=== PATIENT | female | born 1945 | race Caucasian/White ===

== ENCOUNTER 2019-05-15 10:57 | Inpatient (IN) ==
[2019-05-15] MEDS ORDERED: ALBUT/IPRATROP 3MG/0.5MG NEB 3 ML VIAL NEB STA (11:11)
--- NOTE | 2019-05-15 11:14 | Emergency Department Note ---
Entered by Judd Chatterjee acting as a scribe for Bobby Dunn DO History of Present Illness General Chief complaint: Shortness of Breath/Dyspnea Stated complaint: CANT BREATHE Time Seen by Provider: 05/15/19 11:05 Source: patient Limitations: no limitations History of Present Illness Onset (ago): day(s) (couple days) Location: chest Pain Consistency: + other (worsening) Quality: + constant Associated symptoms: no chest pain, no cough and no fever/chills (fevers) The patient is a 74 year old female who presents to the Emergency Room with complaints of constant and worsening SOB starting a couple days ago. The patient states she has bronchiectasis. She states she woke up this morning with her oxygen saturation at 58. She states she had trouble breathing this morning. She states she moved to this area 2 months ago and saw pulmonary at [facility] last week. She states she is prescribed Tobramycin inhaler but the patient's daughter states the patient has not been taking it. The daughter states the patient was recently hospitalized in November because the patient's CO2 was high. The patient denies chest pain, fevers, and coughing. The patient states she used to smoke. 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 Home Medications Home Medications Medication Instructions Recorded Confirmed Type atenolol 25 mg PO QAM 05/15/19 05/15/19 History azathioprine 50 mg PO QAM 05/15/19 05/15/19 History clonazepam 0.5 mg PO BID 05/15/19 05/15/19 History esomeprazole magnesium [Nexium] 40 mg PO QAM 05/15/19 05/15/19 History ipratropium-albuterol 3 ml INHALATION QID 05/15/19 05/15/19 History levothyroxine [Synthroid] 112 mcg PO QAM 05/15/19 05/15/19 History metformin 0 mg PO PM 05/15/19 05/15/19 History prednisone 5 mg PO QAM 05/15/19 05/15/19 History sodium chloride 4 ml INHALATION BID 05/15/19 05/15/19 History tobramycin [Dionicio Podhaler] 28 mg INHALATION UD 05/15/19 05/15/19 History venlafaxine 37.5 mg PO PM 05/15/19 05/15/19 History venlafaxine 75 mg PO PM 05/15/19 05/15/19 History venlafaxine 75 mg PO QAM 05/15/19 05/15/19 History Allergies Allergy/AdvReac Type Severity Reaction Status Date / Time levofloxacin Allergy Unknown Unverified 05/15/19 12:47 Sulfa (Sulfonamide Allergy Unknown Unverified 05/15/19 12:47 Antibiotics) Past Med/Surg History Medical History Bronchiectasis Vasculitis Family History Other Family history non-contributory Social History Preferred Language: Macedonian Communication Ability: Effective Rn Clinical Trials Required: No Beliefs That Will Affect Care: Christian Christian Beliefs: Yazidism. Current Living Situation: Spouse Current Living Situation Comment: [facility]. Other Information That Helps Us Care for You: No Feels Safe at Home: Yes Safety Concerns: Feels Safe At This Time Smoking Status: Former smoker Do You Dip or Chew Tobacco: No ; Smoking End Date: 40+Years ago. ; Second Hand Exposure: No ; Tobacco Cessation Education Requested by Patient: No Hx Alcohol Use: No Hx Substance Use: No Review of Systems See HPI for pertinent positives & negatives. and A total of 10 systems reviewed and were otherwise negative Physical Exam Vital Signs Vital Signs - 24 hr 05/15/19 11:07 05/15/19 11:14 05/15/19 11:20 Temperature 36.6 C Temperature Source Oral Pulse Rate 78 81 Pulse Rate [Apical] 76 Pulse Rate from SpO2 Sensor 76 Respiratory Rate 17 24 Respiratory Effort / Characteristics Spontaneous Respiratory Depth Normal Respiratory Pattern Regular Blood Pressure 146/62 H 146/62 H Blood Pressure Mean 94 90 Pulse Oximetry 94 74 L 91 Oxygen Delivery Method Room Air High Flow Nasal Cannula Oxygen Flow Rate 25 Fraction of Inspired Oxygen 40 Sepsis Recent Fever Within 48 Hours No Sepsis New/Unexplained Change in Mental Status No Sepsis Action Taken by Nursing No Action Required Oxygen Flow Rate - Titration 11 Pulse Oximetry Post Tiitration 92 05/15/19 11:25 05/15/19 11:26 05/15/19 11:30 Temperature Temperature Source Pulse Rate 77 78 76 Pulse Rate [Apical] Pulse Rate from SpO2 Sensor 78 78 77 Respiratory Rate 32 H 30 H 25 H Respiratory Effort / Characteristics Respiratory Depth Respiratory Pattern Blood Pressure 124/61 122/69 Blood Pressure Mean 79 79 Pulse Oximetry 95 95 93 Oxygen Delivery Method Oxygen Flow Rate Fraction of Inspired Oxygen Sepsis Recent Fever Within 48 Hours Sepsis New/Unexplained Change in Mental Status Sepsis Action Taken by Nursing Oxygen Flow Rate - Titration Pulse Oximetry Post Tiitration 05/15/19 11:40 05/15/19 12:00 05/15/19 12:01 Temperature Temperature Source Pulse Rate 75 74 Pulse Rate [Apical] 76 Pulse Rate from SpO2 Sensor 77 74 Respiratory Rate 24 33 H 35 H Respiratory Effort / Characteristics Spontaneous Respiratory Depth Respiratory Pattern Blood Pressure 127/62 Blood Pressure Mean 83 Pulse Oximetry 91 95 95 Oxygen Delivery Method High Flow Nasal Cannula Nasal Cannula Oxygen Flow Rate 25 4 Fraction of Inspired Oxygen 40 Sepsis Recent Fever Within 48 Hours Sepsis New/Unexplained Change in Mental Status Sepsis Action Taken by Nursing Oxygen Flow Rate - Titration Pulse Oximetry Post Tiitration 05/15/19 12:30 05/15/19 12:31 05/15/19 13:00 Temperature Temperature Source Pulse Rate 78 80 75 Pulse Rate [Apical] Pulse Rate from SpO2 Sensor 77 79 75 Respiratory Rate 22 Respiratory Effort / Characteristics Respiratory Depth Respiratory Pattern Blood Pressure 113/64 124/62 Blood Pressure Mean 91 88 Pulse Oximetry 95 96 94 Oxygen Delivery Method Oxygen Flow Rate Fraction of Inspired Oxygen Sepsis Recent Fever Within 48 Hours Sepsis New/Unexplained Change in Mental Status Sepsis Action Taken by Nursing Oxygen Flow Rate - Titration Pulse Oximetry Post Tiitration 05/15/19 13:01 05/15/19 13:30 05/15/19 13:31 Temperature Temperature Source Pulse Rate 74 73 79 Pulse Rate [Apical] Pulse Rate from SpO2 Sensor 74 74 74 Respiratory Rate 24 17 17 Respiratory Effort / Characteristics Respiratory Depth Respiratory Pattern Blood Pressure 124/61 Blood Pressure Mean 85 Pulse Oximetry 94 97 94 Oxygen Delivery Method Nasal Cannula Nasal Cannula Oxygen Flow Rate 4 2 Fraction of Inspired Oxygen Sepsis Recent Fever Within 48 Hours Sepsis New/Unexplained Change in Mental Status Sepsis Action Taken by Nursing Oxygen Flow Rate - Titration Pulse Oximetry Post Tiitration 05/15/19 14:00 05/15/19 14:01 Temperature Temperature Source Pulse Rate 75 75 Pulse Rate [Apical] Pulse Rate from SpO2 Sensor 76 75 Respiratory Rate Respiratory Effort / Characteristics Respiratory Depth Respiratory Pattern Blood Pressure 128/60 Blood Pressure Mean 85 Pulse Oximetry Oxygen Delivery Method Oxygen Flow Rate Fraction of Inspired Oxygen Sepsis Recent Fever Within 48 Hours Sepsis New/Unexplained Change in Mental Status Sepsis Action Taken by Nursing Oxygen Flow Rate - Titration Pulse Oximetry Post Tiitration GENERAL: The patient is awake and alert. She is very anxious appearing. EYES: The conjunctivae are clear. The pupils are round and reactive. EARS, NOSE, MOUTH AND THROAT: The nose is without any evidence of any deformity. Mucous membranes are moist. Tongue is midline. NECK: The neck is nontender and supple. RESPIRATORY: Shallow respirations are noted. There are rales noted throughout. CARDIOVASCULAR: Regular rate and rhythm noted there no murmurs rubs or gallops normal S1 normal S2. GASTROINTESTINAL: The abdomen is soft. Abdomen is nontender. MUSCULOSKELETAL/EXTREMITIES: There is no evidence of gross deformity full range of motion is noted in the hips and shoulders. SKIN: Pedal edema was noted bilaterally. Petechiae are noted in both legs. NEUROLOGIC: Patient is awake alert and oriented x3. Course Course 1106: The patient was evaluated in room C9, and a complete history and physical examination were performed. 1231: I reevaluated the patient. She is doing better. 1252: I discussed the patient's case with Dr. Floyd - [facility] Hospitalist. She will evaluate the patient for further management. Administered Medications Discontinued Medications Albuterol (Duoneb) 3 ml NEB NOW STA Stop: 05/15/19 11:12 Last Admin: 05/15/19 11:35 Dose: 3 ml Documented by: [id number] Medical Decision Making Differential Diagnosis Differential diagnoses includes but is not limited to pneumonia, bronchitis, COPD/Asthma exacerbation, pneumothorax, pulmonary embolism, congestive heart failure, acute coronary syndrome Medical Records Attestation: I reviewed the patient's medical records. Home Medications Current Medication List: was personally reviewed by me Laboratory Data Attestation: I reviewed the patient's lab results. Result diagrams: 05/15/19 12:15 05/15/19 12:08 Lab Results 05/15/19 05/15/19 05/15/19 Range/Units 11:15 11:26 11:26 WBC Cancelled RBC Cancelled Hgb Cancelled Hct Cancelled MCV Cancelled MCH Cancelled MCHC Cancelled RDW Std Deviation Cancelled RDW Coeff of Taylor Cancelled Plt Count Cancelled MPV Cancelled Immature Gran % (Auto) Cancelled Neut % (Auto) Cancelled Lymph % (Auto) Cancelled [place] % (Auto) Cancelled Eos % (Auto) Cancelled Baso % (Auto) Cancelled Immature Gran # (Auto) Cancelled Neut # (Auto) Cancelled Lymph # (Auto) Cancelled [place] # (Auto) Cancelled Eos # (Auto) Cancelled Baso # (Auto) Cancelled Absolute Nucleated RBC Cancelled Nucleated RBC % (auto) Cancelled Neutrophils % (Manual) Cancelled Band Neutrophils % Cancelled Lymphocytes % (Manual) Cancelled Prolymphocyte % Cancelled Reactive Lymphs % (Man) Cancelled Monocytes % (Manual) Cancelled Eosinophils % (Manual) Cancelled Basophils % (Manual) Cancelled Metamyelocytes % (Man) Cancelled Myelocytes % (Man) Cancelled Promyelocytes % (Man) Cancelled Blast Cells % (Manual) Cancelled Plasma Cell % (Manual) Cancelled Other Cells % Cancelled Nucleated RBC % Cancelled Neutrophils # (Manual) Cancelled Band Neutrophils # Cancelled Total Absolute Neuts Cancelled Lymphocytes # (Manual) Cancelled Prolymphocyte # Cancelled Reactive Lymphs # Cancelled Total Abs Lymphocytes Cancelled Monocytes # (Manual) Cancelled Eosinophils # (Manual) Cancelled Basophils # (Manual) Cancelled Metamyelocytes # (Man) Cancelled Myelocytes # (Manual) Cancelled Promyelocytes # (Man) Cancelled Blast Cells # (Man) Cancelled Plasma Cell # (Manual) Cancelled Other Cells # Cancelled Nucleated RBCs # (Man) Cancelled Hypersegmented Neuts Cancelled Hyposegmented Neuts Cancelled Hypogranular Neuts Cancelled Large Granular Lymphs Cancelled # Lrg Granular Lymphs Cancelled Hairy Cells Cancelled Smudge Cells Cancelled Toxic Granulation Cancelled Toxic Vacuolation Cancelled Dohle Bodies Cancelled Christ Rods Cancelled Platelet Estimate Cancelled Hypogranular Platelets Cancelled Clumped Platelets Cancelled Giant Platelets Cancelled Platelet Satelliting Cancelled RBC Morphology Cancelled Polychromasia Cancelled Hypochromasia Cancelled Poikilocytosis Cancelled Basophilic Stippling Cancelled Anisocytosis Cancelled Microcytosis Cancelled Macrocytosis Cancelled Spherocytes Cancelled Pappenheimer Bodies Cancelled Sickle Cells Cancelled Target Cells Cancelled Tear Drop Cells Cancelled Ovalocytes Cancelled Stomatocytes Cancelled Cornell-El Negro Bodies Cancelled Echinocytes Cancelled Acanthocytes (Spur) Cancelled Rouleaux Cancelled RBC Agglutinates Cancelled Schistocytes Cancelled RBC Morph Comment Cancelled Sezary Cell Cancelled PT Cancelled INR Cancelled APTT Cancelled PTT Ratio Cancelled VBG pH (7.36-7.41) VBG pCO2 (38-50) mmHg VBG pO2 mmHg VBG HCO3 mmol/L VBG O2 Saturation % VBG Base Excess mEq/L Barometric Pressure mm/Hg Sodium (136-145) mmol/L Potassium (3.5-5.1) mmol/L Chloride (98-107) mmol/L Carbon Dioxide (21-32) mmol/L Anion Gap (3-11) BUN (7-18) mg/dl Creatinine (0.6-1.2) mg/dl Est Cr Clr Drug Dosing ml/min Est GFR ( Amer) Est GFR (Non-Af Amer) BUN/Creatinine Ratio (10-20) Glucose (70-99) mg/dl Calcium (8.5-10.1) mg/dl Magnesium (1.8-2.4) mg/dl Total Bilirubin (0.2-1) mg/dl AST (15-37) U/L ALT (12-78) U/L Alkaline Phosphatase (45-117) U/L Troponin I (0-0.045) ng/ml NT-Pro-B Natriuret Pep (0-1800) pg/ml Total Protein (6.4-8.2) gm/dl Albumin (3.4-5.0) gm/dl Globulin (2.5-4.0) gm/dl Albumin/Globulin Ratio (0.9-2) Procalcitonin (0-0.5) ng/ml Influenza Type A (PCR) Neg for Influ A (Neg) Influenza Type B (PCR) Neg for Influ B (Neg) 05/15/19 05/15/19 05/15/19 Range/Units 11:26 11:26 12:08 WBC RBC Hgb Hct MCV MCH MCHC RDW Std Deviation RDW Coeff of Taylor Plt Count MPV Immature Gran % (Auto) Neut % (Auto) Lymph % (Auto) [place] % (Auto) Eos % (Auto) Baso % (Auto) Immature Gran # (Auto) Neut # (Auto) Lymph # (Auto) [place] # (Auto) Eos # (Auto) Baso # (Auto) Absolute Nucleated RBC Nucleated RBC % (auto) Neutrophils % (Manual) Band Neutrophils % Lymphocytes % (Manual) Prolymphocyte % Reactive Lymphs % (Man) Monocytes % (Manual) Eosinophils % (Manual) Basophils % (Manual) Metamyelocytes % (Man) Myelocytes % (Man) Promyelocytes % (Man) Blast Cells % (Manual) Plasma Cell % (Manual) Other Cells % Nucleated RBC % Neutrophils # (Manual) Band Neutrophils # Total Absolute Neuts Lymphocytes # (Manual) Prolymphocyte # Reactive Lymphs # Total Abs Lymphocytes Monocytes # (Manual) Eosinophils # (Manual) Basophils # (Manual) Metamyelocytes # (Man) Myelocytes # (Manual) Promyelocytes # (Man) Blast Cells # (Man) Plasma Cell # (Manual) Other Cells # Nucleated RBCs # (Man) Hypersegmented Neuts Hyposegmented Neuts Hypogranular Neuts Large Granular Lymphs # Lrg Granular Lymphs Hairy Cells Smudge Cells Toxic Granulation Toxic Vacuolation Dohle Bodies Christ Rods Platelet Estimate Hypogranular Platelets Clumped Platelets Giant Platelets Platelet Satelliting RBC Morphology Polychromasia Hypochromasia Poikilocytosis Basophilic Stippling Anisocytosis Microcytosis Macrocytosis Spherocytes Pappenheimer Bodies Sickle Cells Target Cells Tear Drop Cells Ovalocytes Stomatocytes Cornell-El Negro Bodies Echinocytes Acanthocytes (Spur) Rouleaux RBC Agglutinates Schistocytes RBC Morph Comment Sezary Cell PT INR APTT PTT Ratio VBG pH 7.22 L (7.36-7.41) VBG pCO2 103 H (38-50) mmHg VBG pO2 59 mmHg VBG HCO3 41 mmol/L VBG O2 Saturation 87.0 % VBG Base Excess 9.8 mEq/L Barometric Pressure 737.7 mm/Hg Sodium 134 L (136-145) mmol/L Potassium 4.9 (3.5-5.1) mmol/L Chloride 93 L (98-107) mmol/L Carbon Dioxide 40 H (21-32) mmol/L Anion Gap 2.0 L (3-11) BUN 15 (7-18) mg/dl Creatinine 0.64 (0.6-1.2) mg/dl Est Cr Clr Drug Dosing 64.6 ml/min Est GFR ( Amer) 100.5 Est GFR (Non-Af Amer) 86.7 BUN/Creatinine Ratio 23.8 H (10-20) Glucose 170 H (70-99) mg/dl Calcium 8.7 (8.5-10.1) mg/dl Magnesium 2.3 (1.8-2.4) mg/dl Total Bilirubin 0.3 (0.2-1) mg/dl AST 6 L (15-37) U/L ALT 9 L (12-78) U/L Alkaline Phosphatase 98 (45-117) U/L Troponin I < 0.015 (0-0.045) ng/ml NT-Pro-B Natriuret Pep 1493 (0-1800) pg/ml Total Protein 8.4 H (6.4-8.2) gm/dl Albumin 3.1 L (3.4-5.0) gm/dl Globulin 5.3 H (2.5-4.0) gm/dl Albumin/Globulin Ratio 0.6 L (0.9-2) Procalcitonin (0-0.5) ng/ml Influenza Type A (PCR) (Neg) Influenza Type B (PCR) (Neg) 05/15/19 05/15/19 05/15/19 Range/Units 12:15 12:15 12:15 WBC 10.32 RBC 3.35 L Hgb 11.2 L Hct 37.4 MCV 111.6 H MCH 33.4 MCHC 29.9 L RDW Std Deviation RDW Coeff of Taylor Plt Count 250 MPV Immature Gran % (Auto) 0.2 Neut % (Auto) 79.4 Lymph % (Auto) 14.2 [place] % (Auto) 5.0 Eos % (Auto) 0.8 Baso % (Auto) 0.4 Immature Gran # (Auto) 0.02 Neut # (Auto) 8.19 H Lymph # (Auto) 1.47 [place] # (Auto) 0.52 Eos # (Auto) 0.08 Baso # (Auto) 0.04 Absolute Nucleated RBC Nucleated RBC % (auto) Neutrophils % (Manual) Band Neutrophils % Lymphocytes % (Manual) Prolymphocyte % Reactive Lymphs % (Man) Monocytes % (Manual) Eosinophils % (Manual) Basophils % (Manual) Metamyelocytes % (Man) Myelocytes % (Man) Promyelocytes % (Man) Blast Cells % (Manual) Plasma Cell % (Manual) Other Cells % Nucleated RBC % Neutrophils # (Manual) Band Neutrophils # Total Absolute Neuts Lymphocytes # (Manual) Prolymphocyte # Reactive Lymphs # Total Abs Lymphocytes Monocytes # (Manual) Eosinophils # (Manual) Basophils # (Manual) Metamyelocytes # (Man) Myelocytes # (Manual) Promyelocytes # (Man) Blast Cells # (Man) Plasma Cell # (Manual) Other Cells # Nucleated RBCs # (Man) Hypersegmented Neuts Hyposegmented Neuts Hypogranular Neuts Large Granular Lymphs # Lrg Granular Lymphs Hairy Cells Smudge Cells Toxic Granulation Toxic Vacuolation Dohle Bodies Christ Rods Platelet Estimate Hypogranular Platelets Clumped Platelets Giant Platelets Platelet Satelliting RBC Morphology Polychromasia Hypochromasia Poikilocytosis Basophilic Stippling Anisocytosis Microcytosis Macrocytosis Present Spherocytes Pappenheimer Bodies Sickle Cells Target Cells Tear Drop Cells Ovalocytes Stomatocytes 1+ Cornell-El Negro Bodies Echinocytes Acanthocytes (Spur) Rouleaux RBC Agglutinates Schistocytes RBC Morph Comment Sezary Cell PT 10.3 INR 1.0 APTT 23.7 PTT Ratio 0.9 VBG pH (7.36-7.41) VBG pCO2 (38-50) mmHg VBG pO2 mmHg VBG HCO3 mmol/L VBG O2 Saturation % VBG Base Excess mEq/L Barometric Pressure mm/Hg Sodium (136-145) mmol/L Potassium (3.5-5.1) mmol/L Chloride (98-107) mmol/L Carbon Dioxide (21-32) mmol/L Anion Gap (3-11) BUN (7-18) mg/dl Creatinine (0.6-1.2) mg/dl Est Cr Clr Drug Dosing ml/min Est GFR ( Amer) Est GFR (Non-Af Amer) BUN/Creatinine Ratio (10-20) Glucose (70-99) mg/dl Calcium (8.5-10.1) mg/dl Magnesium (1.8-2.4) mg/dl Total Bilirubin (0.2-1) mg/dl AST (15-37) U/L ALT (12-78) U/L Alkaline Phosphatase (45-117) U/L Troponin I (0-0.045) ng/ml NT-Pro-B Natriuret Pep (0-1800) pg/ml Total Protein (6.4-8.2) gm/dl Albumin (3.4-5.0) gm/dl Globulin (2.5-4.0) gm/dl Albumin/Globulin Ratio (0.9-2) Procalcitonin < 0.05 (0-0.5) ng/ml Influenza Type A (PCR) (Neg) Influenza Type B (PCR) (Neg) Imaging Data Radiologist's Impression: Radiology results as stated below per my review and the radiologist's interpretation: XR chest 1V portable CLINICAL HISTORY: 74 years-old Female presenting with Dyspnea. TECHNIQUE: Portable upright AP view of the chest was obtained. COMPARISON: None. FINDINGS: Atherosclerosis of the aortic arch. Cardiac silhouette borderline enlarged. Extensive heterogeneity lung parenchyma with reticular opacities diffusely though most dense in the right apex and left midlung as well as at the left lung base. Trace bilateral pleural effusions or blunting of the costophrenic angles related to hyperinflation. No pneumothorax. Osteopenia may be present. Upper abdomen normal. IMPRESSION: 1. Severe chronic lung disease. Added density at the right apex, left mid lung, left lung base makes a superimposed infiltrate/pneumonia difficult to exclude. Consider chest CT for further characterization. ACT 112: Negative or not required by law. Electronically signed by: Patric Drew M.D. 05/15/2019 11:44 AM ECG Data Attestation: I personally reviewed and interpreted this ECG as follows: Indication: + SOB/dyspnea Rate (beats per minute): [address] segments: no ST depression and no ST elevation ECG Findings: no PACs and no PVCs Comparison ECG Date: no prior available Blood Pressure Blood Pressure Findings: Elevated blood pressure Blood Pressure Disposition: further management by hospitalist [facility] Narrative The patient is a 74-year-old female who presented to the emergency department for shortness of breath. The patient recently moved to our area from [place] but has a history of bronchiectasis as well as Mycobacterium avium complex infection. She is also had a history of Pseudomonas infections. She does have coughing which is productive but no worse than usual. Her family brought her to the emergency department today at the request of her [facility] pulmonary group because of difficulty breathing and hypoxia. The patient has a home pulse ox which was reading very low. She was found to be in significant respiratory acidosis. The patient was treated with bronchodilator therapy and Vapotherm. She was significantly improved on reevaluation. I discussed the patient's laboratory and radiographic studies with her. I also discussed this case with the on-call [facility] hospitalist. They have agreed to evaluate the patient in the emergency department for further management and disposition. It is possible the patient may need further treatment for her Mycobacterium infection however at this time I will defer any new antibiotic treatment to the admitting team. Impression & Plan Bronchiectasis, Hypoxia, Respiratory acidosis Discharge Plan Visit Data *Final* Discharge Date/Time: 05/15/19 15:10 Chief Complaint: Shortness of Breath/Dyspnea Stated Complaint: CANT BREATHE ED Provider: Bobby Dunn Discharge Problem: Bronchiectasis, Hypoxia, Respiratory acidosis Patient Disposition: Admitted As Inpatient Discharge Instructions Interventions: ED Discharge Assessment Last Done: 05/15/19 15:10 Discharge Problem: Bronchiectasis Qualifiers: Bronchiectasis type: uncomplicated Qualified Code(s): J47.9 - Bronchiectasis, uncomplicated The scribe's documentation has been prepared under my direction and personally reviewed by me in its entirety. I confirm that the note above accurately reflects all work, treatment, procedures, and medical decision making performed by me.
[2019-05-15 11:45] LABS: Base Excess VBG 9.8 mEq/L; pH VBG 7.22 (7.36-7.41)
--- NOTE | 2019-05-15 11:46 | XRay Report ---
XR chest 1V portable CLINICAL HISTORY: 74 years-old Female presenting with Dyspnea. TECHNIQUE: Portable upright AP view of the chest was obtained. COMPARISON: None. FINDINGS: Atherosclerosis of the aortic arch. Cardiac silhouette borderline enlarged. Extensive heterogeneity l yves parenchyma with reticular opacities diffusely though most dense in the right apex and left midlun g as well as at the left lung base. Trace bilateral pleural effusions or blunting of the costophrenic angles related to hyperinflation. No pneumothorax. Osteopenia may be present. Upper abdomen normal. IMPRESSION: 1. Severe chronic lung disease. Added density at the right apex, left mid lung, left lung base makes a superimposed infiltrate/pneumonia difficult to exclude. Consider chest CT for further characteriza tion. ACT 112: Negative or not required by law. Electronically signed by: Patric Drew M.D. 05/15/2019 11:44 AM
[2019-05-15 11:56] LABS: Influenza A virus by PCR Neg for Influ A (Neg); Influenza B virus by PCR Neg for Influ B (Neg)
[2019-05-15 12:00] LABS: Alanine Aminotransferase 9 U/L (12-78); Albumin Level 3.1 gm/dl (3.4-5.0); BUN Creatinine Ratio 23.8 (10-20); Blood Urea Nitrogen 15 mg/dl (7-18); Calcium 8.7 mg/dl (8.5-10.1); Carbon Dioxide 40 mmol/L (21-32); Chloride 93 mmol/L (98-107); Creatinine Clr Calc Pharmacy 64.6 ml/min; Est GFR (African American) 100.5; Est GFR (Non-African American) 86.7; Glucose 170 mg/dl (70-99); Sodium 134 mmol/L (136-145)
[2019-05-15 12:01] LABS: Albumin Globulin Ratio 0.6 (0.9-2); Bilirubin,Total 0.3 mg/dl (0.2-1); Globulin 5.3 gm/dl (2.5-4.0); NT Pro B Type Natriuretic Pept 1493 pg/ml (0-1800); Total Protein 8.4 gm/dl (6.4-8.2); Troponin I < 0.015 ng/ml (0-0.045)
[2019-05-15 12:02] LABS: Alkaline Phosphatase 98 U/L (45-117)
[2019-05-15 12:33] LABS: Partial Thromboplastin Ratio 0.9; Partial Thromboplastin Time 23.7 Seconds (21.0-31.0); Prothrombin Time 10.3 Seconds (9.0-12.0)
[2019-05-15 12:34] LABS: Potassium 4.9 mmol/L (3.5-5.1)
[2019-05-15 12:39] LABS: Magnesium 2.3 mg/dl (1.8-2.4)
[2019-05-15 12:44] LABS: Hematocrit (blood only) 37.4 % (37-47); Hemoglobin 11.2 g/dL (12.0-16.0); Mean Corpuscular Hemoglobin 33.4 pg (25-34); Mean Corpuscular Hgb Conc 29.9 g/dL (32-36); Mean Corpuscular Volume 111.6 fL (80-100); Platelet Count 250 K/uL (130-400); Red Blood Count 3.35 M/uL (4.2-5.4); White Blood Count 10.32 K/uL (4.8-10.8)
[2019-05-15 13:00] LABS: Basophils # (auto) 0.04 K/uL (0-0.2); Basophils % (auto) 0.4 %; Eosinophils # (auto) 0.08 K/uL (0-0.5); Eosinophils % (auto) 0.8 %; Immature Granulocytes # (auto) 0.02 K/uL (0.00-0.02); Immature Granulocytes % (auto) 0.2 %; Lymphocytes # (auto) 1.47 K/uL (1.2-3.4); Lymphocytes % (auto) 14.2 %; Macrocytosis Present; Monocytes # (auto) 0.52 K/uL (0.11-0.59); Neutrophils # (auto) 8.19 K/uL (1.4-6.5); Neutrophils % (auto) 79.4 %; Stomatocytes 1+
--- NOTE | 2019-05-15 14:40 | History & Physical Report ---
Date of Service May 15, 2019 Assessment & Plan (1) Acute and chronic respiratory failure: Admit to PCU on telemetry. Vital signs every 4 hours. DuoNebs every 4 hours for shortness of breath and as needed per RT. Continue supplemental oxygen and BiPAP as needed Started piperacillin tazobactam CPAP BiPAP at bedtime Flutter valve 4 times daily Patient is not home on tobramycin 28 mg inhalation as directed. We will increase dose to 80 mg twice daily for acute exacerbation. Started multivitamins. Sputum cultures, blood cultures urine cultures pending. Lactic acid and procalcitonin pending. Hold Azathioprine 50 mg p.o. every morning for telangiectasis Started Solu-Medrol 40 mg IV twice daily and taper down. Consult pulmonary Pending vitamin D level DVT prophylaxis SCDs and teds Patient is a full code Present on Admission?: Yes (2) Depression: Stable, continue home medicine venlafaxine 75 mg p.o. every afternoon, 35.5 mg p.o. every afternoon, and 75 mg p.o. every morning. Continue clonazepam 0.5 mg p.o. twice daily. Present on Admission?: Yes (3) Anxiety: As the above Present on Admission?: Yes (4) Bronchiectasis: As discussed above Present on Admission?: Yes (5) Diabetes mellitus type 2 in nonobese: A1c pending. Accu-Cheks before meals and at bedtime. Sliding scale insulin. Glycemic control per pharmacy Present on Admission?: Yes History of Present Illness Chief Complaint: Shortness of breath Primary Care Provider: Patric Nath MD The patient is a 74 years old female with past medical history of chronic respiratory failure on oxygen, anxiety and depression, diabetes mellitus type 2, GERD, vasculitis, bronchiectasis, who was brought to the emergency room today with a complaint of worsening shortness of breath since yesterday. Patient and her moved from [place] 6 weeks ago to join her daughter in [place]. 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 Patient reports that she uses oxygen 24/7 approximately 2 to 3 L and she has sedentary life because any movement around increases her oxygen demand and makes her feel sick. This issue has been ongoing for more than a year. Patient reports that her dyspnea is getting worse and that is why she presented to the hospital. Patient denies fever, chills, chest pain, abdominal pain, frequency, urgency, syncope or near syncope, hemoptysis. Patient is good historian. She stated that most likely she will be DNR/DNI but she has to speak to her children. She reports that her cough is productive. Sputum is yellowish-green. EKG normal sinus rhythm with LVH. Labs are reviewed and shows sodium of 134, potassium 4.9, chloride 93, carbon dioxide 40, anion gap 2, BUN 15, creatinine 0.64, GFR 86.7, calcium 8.7, magnesium 2.3, AST 6, ALT 9, alkaline phosphatase 98, troponin 0.015, BNP 1493, total protein 8.4, albumin 3.1, globulin 5.3, procalcitonin pending. Influenza A&B negative. WBCs 10.32, RBCs 3.35, he moglobin 11.2, hematocrit 37.4, platelets 250, absolute neutrophil 8.19 left shift. Chest x-ray significant for severe chronic lung disease there is a density in the right upper ex, left mid lung, left lung base makes a superimposed infiltrate/pneumonia difficult to exclude. The decision was made to admit patient to PCU on telemetry for possible pneumonia, acute on chronic respiratory failure and bronchiectasis. Allergies Allergy/AdvReac Type Severity Reaction Status Date / Time levofloxacin Allergy Unknown Unverified 05/15/19 12:47 Sulfa (Sulfonamide Allergy Unknown Unverified 05/15/19 12:47 Antibiotics) Home Medications Home Medications Medication Instructions Recorded Confirmed Type atenolol 25 mg PO QAM 05/15/19 05/15/19 History azathioprine 50 mg PO QAM 05/15/19 05/15/19 History clonazepam 0.5 mg PO BID 05/15/19 05/15/19 History esomeprazole magnesium [Nexium] 40 mg PO QAM 05/15/19 05/15/19 History ipratropium-albuterol 3 ml INHALATION QID 05/15/19 05/15/19 History levothyroxine [Synthroid] 112 mcg PO QAM 05/15/19 05/15/19 History metformin 0 mg PO PM 05/15/19 05/15/19 History prednisone 5 mg PO QAM 05/15/19 05/15/19 History sodium chloride 4 ml INHALATION BID 05/15/19 05/15/19 History tobramycin [Dionicio Podhaler] 28 mg INHALATION UD 05/15/19 05/15/19 History venlafaxine 37.5 mg PO PM 05/15/19 05/15/19 History venlafaxine 75 mg PO PM 05/15/19 05/15/19 History venlafaxine 75 mg PO QAM 05/15/19 05/15/19 History Past Med/Surg History Medical History Bronchiectasis Vasculitis Family History Other Family history non-contributory Social History Preferred Language: Ivorian Communication Ability: Effective Blister Rust Eradicator Required: No Beliefs That Will Affect Care: Jain Jain Beliefs: Hindu. Current Living Situation: Spouse Current Living Situation Comment: [place]. Other Information That Helps Us Care for You: No Feels Safe at Home: Yes Safety Concerns: Feels Safe At This Time Smoking Status: Former smoker Do You Dip or Chew Tobacco: No ; Smoking End Date: 40+Years ago. ; Second Hand Exposure: No ; Tobacco Cessation Education Requested by Patient: No Hx Alcohol Use: No Hx Substance Use: No Review of Systems Review of Systems: All systems reviewed & are unremarkable except as noted in HPI & below Physical Exam Constitutional: WD/WN, vitals as above well developed, + ill appearing, + thin and + cachectic Eyes: PERRL, conjunctivae normal, anicteric sclerae ENMT: external ear and nose normal, oropharynx normal Neck: trachea midline, no thyromegaly Respiratory: + respiratory distress, + labored breathing, + uses accessory muscles, + hyperresonance to percussion, able to speak in complete sentences and + prolonged expiratory phase Auscultation: + crackles, + rales, + rhonchi, + wheezes and + pleural rub present Cardiovascular: RRR, no murmur, no edema Gastrointestinal (Abdomen): normal bowel sounds, soft, nontender, no hepatosplenomegaly Musculoskeletal: no cyanosis or clubbing, extremities motor strength 5/5 Skin: + purpura Neurologic: patellar DTR's 2+ bilat, sensation intact Psychiatric: A+Ox3, euthymic affect Lymphatic: no cervical or axillary lymphadenopathy Results & Data Vital Signs (Past 12 Hours) Vital Signs Temp Pulse Pulse Resp BP Pulse Ox 05/15/19 13:31 79 17 94 05/15/19 13:30 73 17 124/61 97 05/15/19 13:01 74 24 94 05/15/19 13:00 75 124/62 94 05/15/19 12:31 80 22 96 05/15/19 12:30 78 113/64 95 05/15/19 12:01 74 35 H 95 05/15/19 12:00 75 33 H 127/62 95 05/15/19 11:40 76 24 91 05/15/19 11:30 76 25 H 122/69 93 05/15/19 11:26 78 30 H 124/61 95 05/15/19 11:25 77 32 H 95 05/15/19 11:20 36.6 C 81 76 24 146/62 H 91 05/15/19 11:14 74 L 05/15/19 11:07 78 17 146/62 H 94 Code Status & VTE Plan Code Status Partial code with DNI. Patient still wants to be resuscitated with chest compressions and medication. VTE Prophylaxis Plan VTE Prophylaxis will be ordered: Yes PG Care Time/CCT Total # of Minutes Spent Total Time Spent with Patient: Total time spent is greater than 50% in coordination of care (as documented) at patient's floor/unit and/or counseling patient: Coding Level of Care Code 89952 Initial Inpt Care Lvl 3 Diagnoses Acute and chronic respiratory failure J96.20 Depression F32.9 Anxiety F41.9 Bronchiectasis J47.9 Bronchiectasis type: uncomplicated Diabetes mellitus type 2 in nonobese E11.9 (1) Bronchiectasis Bronchiectasis type: uncomplicated Qualified Code(s): J47.9 - Bronchiectasis, uncomplicated
[2019-05-15] MEDS ORDERED: ONDANSETRON INJ 2 MG/ML 2 ML VIAL IV PRN (15:49)
[2019-05-15] MEDS ORDERED: GLUCOSE 10 TABS/TUBE PO PRN (15:49)
[2019-05-15] MEDS ORDERED: MAGNESIUM HYDROXIDE SUSP 30 ML UDC PO PRN (15:49)
[2019-05-15] MEDS ORDERED: ACETAMINOPHEN 325 MG TAB PO PRN (15:49)
[2019-05-15] MEDS ORDERED: GLUCAGON FOR INJ 1 MG VIAL SQ PRN (15:49)
[2019-05-15] MEDS ORDERED: POLYETHYLENE (MIRALAX) 17 GM PACK PO PRN (15:49)
[2019-05-15] MEDS ORDERED: DEXTROSE 50% 50 ML SYRINGE IV PRN (15:49)
[2019-05-15] MEDS ORDERED: ALUMINUM/MAGNESIUM SUSP 30 ML UDC PO PRN (15:49)
[2019-05-15] MEDS ORDERED: CARBOHYDRATES FOR HYPOGLYCEMIA PO PRN (15:49)
[2019-05-15] MEDS ORDERED: GLUCOSE 40% GEL 15 GM TUBE PO PRN (15:49)
[2019-05-15] MEDS ORDERED: PHARMACY GLYCEMIC MGMT CONSULT PRN (16:28)
[2019-05-15] MEDS ORDERED: PIPERACILL/TAZOBAC CONSULT ACTIVE PRN (16:52)
[2019-05-15] MEDS ORDERED: methylPREDNISolone 40 MG in SYRINGE 0 ML IV SCH (17:00)
--- NOTE | 2019-05-15 17:05 | Pulmonary Consultation ---
Date of Consultation May 15, 2019 Assessment & Plan (1) Bronchiectasis: Impression: 74-year-old female with history of vasculitis reportedly ANCA positive with bronchiectasis of unclear etiology. She presents with an exacerbation and is found to be significantly hypercarbic on blood gas analysis. This is likely contributing to her hypoxemia as well. Recommendations: 1. Patient's database is incomplete. We will need to get records from [place] as well as [facility] as well as from her prior event producer. Reportedly the patient states that these records were provided to her primary care provider. We will be unable to get records over the weekend and this will need to be reassessed on Saturday when caseworkers are available. The evaluation at [facility] would also be beneficial. 2. The patient appears to be suffering from an acute exacerbation. Will place her on IV Zosyn and discontinue the inhaled tobramycin. Repeat sputum culture and Gram stain will be obtained as well as sputum AFB cultures. 3. Aggressive pulmonary toilet will be initiated with hypertonic saline as well as a flutter valve. She may require percussive vest therapy. 4. We will pursue noninvasive nocturnal positive pressure ventilation for her markedly elevated PCO2 and abnormal blood gas. We did discuss end-of-life issues as the patient has advanced/end-stage lung disease. I am not sure that CPR or mechanical ventilation would be beneficial in regards of this patient's quality of life. She is taking it under advisement and will discuss with her family. 5. The patient requires physical therapy and Occupational Therapy consultations to determine optimal outpatient living situation. 6. High resolution CT scan of the chest to better evaluate the patient's pulmonary parenchyma. 7. The patient needs to establish with rheumatology. She was advised this is not available as an inpatient. I am not sure if her azathioprine should be continued as I am unclear if this is being provided for lung issue or merely cutaneous vasculitis. In the setting of acute infection, I would favor holding it for now. Her creatinine is normal. We will request urinalysis to look for p rotein or hematuria. We will continue to follow with you. Feel free to contact us if we can be of additional assistance. Bronchiectasis type: uncomplicated Qualified Code(s): J47.9 - Bronchiectasis, uncomplicated (2) Hypoxia: (3) Hypercapnic respiratory failure: (4) Abnormal CT scan of lung: History of Present Illness Attending Physician: Champ Floyd MD History of Present Illness Asked by the hospitalist service to assist with management of this patient with bronchiectasis admitted with shortness of breath. History is obtained from discussion with the patient and her daughter at bedside as well as the review of the electronic medical record. Patient is a 74-year-old female who recently moved to [place] from [place]. 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 She also had extensive evaluations conducted at [facility] in [place] as well as in [place]. Her pulmonary history is significant for bronchiectasis of unclear etiology. She apparently recently was diagnosed with ANCA positive vasculitis based on what sounds like a skin biopsy. She is unclear as to whether or not her lungs were involved with the vasculitis. She has been under the care of a gallery assistant and has been on azathioprine for several months. The patient has been using pulmonary toilet at home in the form of a hypertonic saline and flutter valve. She is also on bronchodilators. The patient and her daughter relate that she was admitted in November with hypercapnic respiratory failure. She was intubated at that time. Bronchoscopy may have been accomplished. She relates a history of Pseudomonas infection or colonization but does not know sensitivities. She has been on tobramycin inhaled as a preventative therapy. The patient is on oxygen chronically. She uses between 2 and 3 L on a regular basis. She states her appetite and weight have been relatively stable. She has a variety of other conditions including depression and anxiety for which she is trying to establish with a mental health provider. She does not report night sweats. She is unclear if she is ever been screened for nontuberculous mycobacterial disease. Allergies Allergy/AdvReac Type Severity Reaction Status Date / Time levofloxacin Allergy Unknown Unverified 05/15/19 12:47 Sulfa (Sulfonamide Allergy Unknown Unverified 05/15/19 12:47 Antibiotics) Home Medications Home Medications Medication Instructions Recorded Confirmed Type atenolol 25 mg PO QAM 05/15/19 05/15/19 History azathioprine 50 mg PO QAM 05/15/19 05/15/19 History clonazepam 0.5 mg PO BID 05/15/19 05/15/19 History esomeprazole magnesium [Nexium] 40 mg PO QAM 05/15/19 05/15/19 History ipratropium-albuterol 3 ml INHALATION QID 05/15/19 05/15/19 History levothyroxine [Synthroid] 112 mcg PO QAM 05/15/19 05/15/19 History metformin 0 mg PO PM 05/15/19 05/15/19 History prednisone 5 mg PO QAM 05/15/19 05/15/19 History sodium chloride 4 ml INHALATION BID 05/15/19 05/15/19 History tobramycin [Dionicio Podhaler] 28 mg INHALATION UD 05/15/19 05/15/19 History venlafaxine 37.5 mg PO PM 05/15/19 05/15/19 History venlafaxine 75 mg PO PM 05/15/19 05/15/19 History venlafaxine 75 mg PO QAM 05/15/19 05/15/19 History Patient History Medical History Bronchiectasis Vasculitis Family History Other Family history non-contributory Social History Preferred Language: Amharic Communication Ability: Effective Barrel Inspector Required: No Beliefs That Will Affect Care: Baptism Baptism Beliefs: Cheondoism. Current Living Situation: Spouse Current Living Situation Comment: [place]. Other Information That Helps Us Care for You: No Feels Safe at Home: Yes Safety Concerns: Feels Safe At This Time Smoking Status: Former smoker Do You Dip or Chew Tobacco: No ; Smoking End Amadou e: 40+Years ago. ; Second Hand Exposure: No ; Tobacco Cessation Education Requested by Patient: No Hx Alcohol Use: No Hx Substance Use: No Review of Systems Review of Systems: Please refer to admission H&P. I have no additions or deletions. Physical Exam Constitutional: + cachectic and + frail appearing; not ill appearing Eyes: PERRL Neck: trachea midline, no thyromegaly Respiratory: Coarse rhonchi bilaterally without wheezing Cardiovascular: RRR, no murmur, no edema Gastrointestinal (Abdomen): normal bowel sounds, soft, nontender, no hepatosplenomegaly Skin: Multiple petechial lesions of the bilateral lower extremities Neurologic: Grossly nonfocal exam Psychiatric: A+Ox3, euthymic affect Results & Data Vital Signs (Past 12 Hours) Vital Signs Temp Pulse Pulse Resp BP Pulse Ox 05/15/19 16:31 79 05/15/19 15:01 21 96 05/15/19 15:00 121/62 96 05/15/19 14:31 74 20 05/15/19 14:30 75 22 118/56 L 90 05/15/19 14:01 75 05/15/19 14:00 75 128/60 05/15/19 13:31 79 17 94 05/15/19 13:30 73 17 124/61 97 05/15/19 13:01 74 24 94 05/15/19 13:00 75 124/62 94 05/15/19 12:31 80 22 96 05/15/19 12:30 78 113/64 95 05/15/19 12:01 74 35 H 95 05/15/19 12:00 75 33 H 127/62 95 05/15/19 11:40 76 24 91 05/15/19 11:30 76 25 H 122/69 93 05/15/19 11:26 78 30 H 124/61 95 05/15/19 11:25 77 32 H 95 05/15/19 11:20 36.6 C 81 76 24 146/62 H 91 05/15/19 11:14 74 L 05/15/19 11:07 78 17 146/62 H 94 Laboratory Results 05/15/19 12:15 05/15/19 12:08 Diagnostic Findings Chest x-ray from today was independently reviewed. There are coarse bronchiectatic changes identified within the bilateral upper lobes but extending down to the lower lobes as well. No pleural effusion. No airspace opacities. No comparison films. We do not have records from the patient's prior extensive evaluation at the [facility] or from her prior pulmonary provider in [place] or from [facility] Care Time/CCT Total # of Minutes Spent Total Time Spent with Patient: Total time spent is greater than 50% in coordination of care (as documented) at patient's floor/unit and/or counseling patient: Coding Level of Care Code 82555 Initial Inpt Care Lvl 3 Diagnoses Bronchiectasis J47.9 Bronchiectasis type: uncomplicated Hypoxia R09.02 Hypercapnic respiratory failure J96.[address] scan of lung R91.8 Time Spent (min) 50
[2019-05-15] MEDS ORDERED: PIPERACILLIN/TAZOBACTAM 4.5 GM in DEXTROSE 5% 100 ML IV ONE (17:15)
[2019-05-15] MEDS: ATENOLOL 25 MG TABLET PO SCH (17:21)
[2019-05-15] MEDS: LEVOTHYROXINE SODIUM 112 MCG TABLET PO SCH (17:21)
[2019-05-15] MEDS: PANTOprazole 40 MG TAB PO SCH (17:21)
[2019-05-15] MEDS: MULTIVITAMIN TAB PO SCH (17:21)
[2019-05-15] MEDS: VENLAFAXINE HCL XR 37.5 MG CAPXR PO SCH (17:23)
[2019-05-15] MEDS: INSULIN ASPART 100 UNITS/ML 3 ML PEN SC SCH ×2 (17:51→20:21)
--- NOTE | 2019-05-15 18:09 | CT Scan Report ---
CT chest High Resolution wo con HISTORY: Shortness of breath. Evaluate for interstitial lung disease. TECHNIQUE: Multiaxial CT images of the chest were performed without contrast during inspiration in th e prone and supine positions with a high-resolution protocol. COMPARISON STUDY: Chest 05/15/2019. FINDINGS: No pneumothorax. No pleural effusions. There are severe cystic bronchiectasis involving the entire right upper lobe which also demonstrates volume loss and diffuse fibrotic change. This is als o identified within the lingular segment of the left upper lobe. Additional areas of cylindrical bron chiectasis are seen throughout the lungs with mucoid opacification of the majority of the terminal br onchi and scattered tree-in-bud nodular opacities seen throughout the lungs. This is most pronounced within the lung bases. There are few small areas of consolidation seen within the bilateral lower lob es. There is trace mucoid material within the trachea and mainstem bronchi. These findings favor a ch ronic inflammatory/infectious change and can be seen in the setting of Mycobacterium avium intracellu lar. No suspicious lytic or blastic osseous lesions. The visualized unenhanced liver, spleen, and adr enal glands are unremarkable. The heart is normal in size. Small hiatus hernia. Patulous proximal eso phagus containing a small amount of fluid. A few prominent mediastinal lymph nodes. No definite hilar lymphadenopathy on this noncontrast study. Normal caliber thoracic aorta. IMPRESSION: 1. Extensive bronchiectasis seen throughout the lungs with diffuse cystic bronchiectasis involving th e entire right upper lobe and lingula. There is also mucoid opacification of the majority of the term inal bronchi most pronounced within the lung bases with scattered tree-in-bud nodular opacities and a few small scattered areas of consolidation. These findings favor a chronic inflammatory/infectious c hange and can be seen in the setting of Mycobacterium avium intracellular. 2. A few prominent mediastinal lymph nodes which may be reactive. ACT 112: Negative or not required by law. Electronically signed by: Nilson Lezama M.D. 05/15/2019 6:07 PM
--- NOTE | 2019-05-15 18:29 | Pharmacy Report ---
Glycemic Control Consultation - Date of Service May 15, 2019 - Scope Scope: Glycemic Pharmacist consulted for glycemic control and to write orders per [facility] inpatient glycemic control protocol - Objective Weight: 53.8 kg Accuchecks BSG (last 24hrs): 05/15/19 05/15/19 11:26 16:45 Glucose 170 H POC Glucose 123 H Laboratory Data (last 24hrs): 05/15/19 05/15/19 11:26 12:08 Potassium 4.9 Carbon Dioxide 40 H Anion Gap 2.0 L Creatinine 0.64 Est Cr Clr Drug Dosing 64.6 HbA1c: Pending 05/15/19 - Recent Pertinent Medications Outpatient Anti-diabetic Regimen: * Metformin - pt is unsure of dose * Takes Prednisone 5mg daily Risk Factors for Insulin Resistance: * Steroids: Was ordered Solumedrol but was dc before administered * Infection: PNA * Diet - Assessment & Plan Assessment & Plan: ASSESSMENT: * 74yo T2DM female with unknown degree of outpatient control- A1c pending * Pt was ordered Solumedrol 40mg IV Q12hrs by hospitalist but this was dc by pulmonary prior to administration * Risk factors for insulin resistance include: infection and baseline insulin resistance * So far pt w/o any hyperglycemia (BSGs < 140)- will start with bolus insulin monotherapy and add basal insulin if needed for BSG >180 PLAN FOR INPATIENT GLYCEMIC CONTROL: * Holding outpatient oral diabetes medications * Basal insulin * Not needed at this time * Bolus insulin: weight based bolus insulin scale while metformin on hold for admission * NovoLog per scale ACHS or Q6hrs while NPO * Goal Range: Low 110 mg/dL - High 140 mg/dL * Correction Factor: 30 mg/dL/unit * Nutritional / Prandial insulin per carb ratio of 1 unit per 10 grams CHO consumed * Please note that the plan above was derived based on current level of insulin resistance and hospital stress. These recommendations are appropriate for inpatient admission only. Plan of care upon discharge will need to be reassessed to avoid potential outpatient hypo/hyperglycemia. Thank you.
[2019-05-15] MEDS ORDERED: TOBRAMYCIN SULFATE INH SCH (19:00)
[2019-05-15] MEDS: ALBUT/IPRATROP 3MG/0.5MG NEB 3 ML VIAL INH SCH ×3 (19:07→23:09)
[2019-05-15] MEDS: SODIUM CHLOR 7% 4 ML NEB NEB SCH (19:08)
[2019-05-15] MEDS ORDERED: TOBRAMYCIN INH SCH (21:00)
[2019-05-15] MEDS: clonazePAM 0.5 MG TAB PO SCH ×2 (21:13→22:13)
[2019-05-15] MEDS: PIPERACILLIN/TAZOBACTAM 3.375 GM in DEXTROSE 5% 100 ML IV SCH (22:00)
[2019-05-15 22:54] LABS: Appearance Urine Clear (Clear); Bacteria Urine Automated Negative (Negative); Bilirubin Urine Negative (Negative); Blood Urine Negative (Negative); Color Urine Yellow; Glucose Urine UA Negative (Negative); Ketones Urine Negative (Negative); Leukocyte Esterase Urine Negative (Negative); Nitrite Urine Negative (Negative); Protein Urine 1+ (Negative); RBC Urine Automated 0-4 /hpf (0-4); Specific Gravity Urine 1.025 (1.000-1.030); Urobilinogen Urine Negative (Negative)
[2019-05-16] MEDS: ALBUT/IPRATROP 3MG/0.5MG NEB 3 ML VIAL INH SCH ×6 (03:15→23:32)
[2019-05-16] MEDS: LEVOTHYROXINE SODIUM 112 MCG TABLET PO SCH (05:41)
[2019-05-16] MEDS: PIPERACILLIN/TAZOBACTAM 3.375 GM in DEXTROSE 5% 100 ML IV SCH ×3 (05:42→21:30)
--- NOTE | 2019-05-16 06:26 | Electrocardiogram Report ---
Test Reason : Blood Pressure : / mmHG Vent. Rate : 081 BPM Atrial Rate : 081 BPM P-R Int : 136 ms QRS Dur : 084 ms QT Int : 354 ms P-R-T Axes : 069 -08 065 degrees QTc Int : 411 ms Normal sinus rhythm Possible Left atrial enlargement Borderline ECG No previous ECGs available Confirmed by Colt Gutierrez ([id number]) on 05/16/2019 6:26:00 AM Referred By: Confirmed By:Colt Gutierrez
[2019-05-16 06:45] LABS: Estimated Average Glucose 128 mg/dl; Hemoglobin A1C 6.1 % (4.5-5.6)
[2019-05-16] MEDS: SODIUM CHLOR 7% 4 ML NEB NEB SCH ×2 (07:06→20:19)
[2019-05-16] MEDS: INSULIN ASPART 100 UNITS/ML 3 ML PEN SC SCH ×4 (08:15→21:01)
[2019-05-16] MEDS: FLUTICASONE/VILANTEROL 200/25MCG 14 PUFFS/INHALER INH SCH (08:18)
[2019-05-16] MEDS: MULTIVITAMIN TAB PO SCH (08:20)
[2019-05-16] MEDS: clonazePAM 0.5 MG TAB PO SCH ×2 (08:20→22:06)
[2019-05-16] MEDS: VENLAFAXINE HCL XR 75 MG CAPXR PO SCH ×2 (08:20→12:02)
[2019-05-16] MEDS: PANTOprazole 40 MG TAB PO SCH (08:20)
[2019-05-16] MEDS: ATENOLOL 25 MG TABLET PO SCH (08:20)
[2019-05-16 08:35] LABS: Hematocrit (blood only) 35.5 % (37-47); Hemoglobin 10.6 g/dL (12.0-16.0); Mean Corpuscular Hemoglobin 33.5 pg (25-34); Mean Corpuscular Hgb Conc 29.9 g/dL (32-36); Mean Corpuscular Volume 112.3 fL (80-100); Mean Platelet Volume 8.9 fL (7.4-10.4); Platelet Count 227 K/uL (130-400); RDW Coefficient of Variation 15.8 % (11.5-14.5); RDW Standard Deviation 65.2 fL (36.4-46.3); Red Blood Count 3.16 M/uL (4.2-5.4); White Blood Count 8.79 K/uL (4.8-10.8)
[2019-05-16 09:03] LABS: Basophils # (auto) 0.02 K/uL (0-0.2); Basophils % (auto) 0.2 %; Eosinophils % (auto) 1.1 %; Immature Granulocytes # (auto) 0.02 K/uL (0.00-0.02); Immature Granulocytes % (auto) 0.2 %; Lymphocytes # (auto) 2.49 K/uL (1.2-3.4); Lymphocytes % (auto) 28.3 %; Macrocytosis Present; Monocytes # (auto) 0.79 K/uL (0.11-0.59); Neutrophils # (auto) 5.37 K/uL (1.4-6.5); Neutrophils % (auto) 61.2 %; Stomatocytes 1+
[2019-05-16 09:10] LABS: Albumin Globulin Ratio 0.6 (0.9-2); Albumin Level 2.9 gm/dl (3.4-5.0); BUN Creatinine Ratio 21.6 (10-20); Bilirubin,Total 0.3 mg/dl (0.2-1); Creatinine Clr Calc Pharmacy 65.6 ml/min; Est GFR (Non-African American) 87.1; Globulin 4.7 gm/dl (2.5-4.0); Potassium 4.2 mmol/L (3.5-5.1); Total Protein 7.6 gm/dl (6.4-8.2)
--- NOTE | 2019-05-16 09:21 | Pulmonology Progress Note ---
Date of Service May 16, 2019 Assessment & Plan (1) Bronchiectasis: Impression: 74-year-old female with history of vasculitis reportedly ANCA positive with bronchiectasis of unclear etiology. She presents with an exacerbation and is found to be significantly hypercarbic on blood gas analysis. This is likely contributing to her hypoxemia as well. Recommendations: 1. Patient's database is incomplete. 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 Reportedly the patient states that these records were provided to her primary care provider. We will be unable to get records over the weekend and this will need to be reassessed on Saturday when caseworkers are available. The evaluation at [place] would also be beneficial. 2. Bronchiectasis with acute exacerbation. Continue IV Zosyn. Await sputum culture and sensitivities as well as AFB cultures. 3. Aggressive pulmonary toilet will be initiated with hypertonic saline as well as a flutter valve. She may require percussive vest therapy. 4. Hypercarbic respiratory failure: Continue nocturnal BiPAP. The patient can also use BiPAP during the day as needed. Oxygen should be titrated to keep saturations around 88%. When I queried her today the patient does not think she would want intubation or mechanical ventilation which I certainly think is reasonable. If the patient were to proceed to mechanical ventilation I think it is unlikely she would be weaned off of the ventilator and would may well require tracheostomy. We will decrease her Klonopin as this may be contributing to her hypercarbic respiratory failure. 5. The patient requires physical therapy and Occupational Therapy consultations to determine optimal outpatient living situation. 6. The patient needs to establish with rheumatology. She was advised this is not available as an inpatient. I am not sure if her azathioprine should be continued as I am unclear if this is being provided for lung issue or merely cutaneous vasculitis. In the setting of acute infection, I would favor holding it for now. Urinalysis did show 1+ protein but no hematuria. Again we will need to review results regarding her diagnosis of vasculitis We will continue to follow with you. Feel free to contact us if we can be of additional assistance. Bronchiectasis type: uncomplicated Qualified Code(s): J47.9 - Bronchiectasis, uncomplicated (2) Hypoxia: (3) Hypercapnic respiratory failure: (4) Abnormal CT scan of lung: Subjective Patient continues to cough and produce copious amounts of phlegm. She states she is feeling somewhat short of breath today. She is considering whether or not she would want mechanical ventilation in concert with discussions with her family. She did use BiPAP last night and is unclear if it offered her a benefit. Review of Systems Review of Systems: Unchanged from prior Physical Exam Constitutional: + cachectic and + frail appearing; not ill appearing Eyes: PERRL Neck: trachea midline, no thyromegaly Cardiovascular: RRR, no murmur, no edema Gastrointestinal (Abdomen): normal bowel sounds, soft, nontender, no hepatosplenomegaly Psychiatric: A+Ox3, euthymic affect Results & Data Vital Signs (Past 12 Hours) Vital Signs Temp Pulse Pulse Resp BP Pulse Ox 05/16/19 08:12 93 05/16/19 08:11 100 05/16/19 07:44 73 05/16/19 07:37 36.3 C L 75 20 147/53 H 88 L 05/16/19 07:06 66 24 92 05/16/19 04:05 91 05/16/19 03:36 91 05/16/19 03:17 75 20 92 05/16/19 03:01 36.4 C L 22 135/67 90 05/15/19 23:57 36.4 C L 65 14 127/60 97 05/15/19 23:10 66 64 18 90 Laboratory Results 05/16/19 08:03 05/16/19 08:03 Culture data currently pending Diagnostic Findings High-resolution CT of the chest obtained and reviewed. Images were independently reviewed. There is extensive bronchiectasis with tree-in-bud opacity throughout the entirety of both lungs. The right upper lobe is quite fibrotic. PG Care Time/CCT Total # of Minutes Spent Total Time Spent with Patient: Total time spent is greater than 50% in coordination of care (as documented) at patient's floor/unit and/or counseling patient: Coding Level of Care Code 08308 Subseq Hosp Care Lvl 3 Diagnoses Bronchiectasis J47.9 Bronchiectasis type: uncomplicated Hypoxia R09.02 Hypercapnic respiratory failure J96.[address] scan of lung R91.8
--- NOTE | 2019-05-16 12:07 | Hospitalist Progress Note ---
Date of Service May 16, 2019 Assessment & Plan (1) Bronchiectasis: Significant work-up and long, long treatment for bronchiectasis NOS. Moved from [place] recently to be with family. She reports both infections and colonization by Pseudomonas as well as prior infection and treatment for GEOFFREY (reports she was treated for 19 months). - [facility] - Continue home inhaler - Minimize respiratory depressants (namely benzos) - DuoNebs standing & PRN, continue hypertonic saline nebulizers - Pulmonary following - Follow up cultures including AFB - Continue Zosyn (2) Acute and chronic respiratory failure: Unclear cause at this point. Attempting to obtain records. - As above (3) Anxiety: Has understandably high anxiety about her breathing. - Continue standing home clonazepam 0.25mg PO BID - Continue home medicine venlafaxine 75 mg every morning and lunch, 35.5 mg with dinner (4) Depression: Stable. - As above (5) Vasculitis: Patient has an unknown vasculitis which she reports was ANCA positive. - Hold azathioprine per Dr. Barksdale given concern for acute infection. - Outpatient follow up (6) Diabetes mellitus type 2 in nonobese: A1c was 6.1% this admission. - Sliding scale insulin - Glycemic pharmacist consulted (7) Hypertension: BP stable today at 125/60. - Continue beta-ranjit (8) Hypothyroidism: TSH was 0.3 this admission, but no signs of hyperthyroidism. - Continue home levothyroxine 112 mcg (9) DVT prophylaxis: Lovenox 30 mg SQ daily Subjective Feels stable. No real changes in her cough or breathing today. Reports no fevers/chills, chest pain, shortness of breath, abdominal pain, nausea, or vomiting. Physical Exam Constitutional: WD/WN, vitals as above Eyes: EOM intact bilaterally; no conjunctival abnormality ENMT: external ear and nose normal, oropharynx normal Neck: trachea midline, no thyromegaly normal visual inspection Respiratory: + labored breathing; no respiratory distress Auscultation: + diminished lung sounds and + rhonchi (Diffuse throughout) Cardiovascular: RRR, no murmur, no edema Gastrointestinal (Abdomen): Inspection/Auscultation: abdomen normal to inspection; abdomen not distended Musculoskeletal: no cyanosis or clubbing, extremities motor strength 5/5 Skin: no rashes, warm and dry Neurologic: moves all extremities and awake Psychiatric: Orientation: alert, oriented to person and cooperative Results & Data Vital Signs (Past 12 Hours) Vital Signs Temp Pulse Pulse Pulse Resp BP Pulse Ox 05/16/19 11:37 72 22 92 05/16/19 11:17 36.6 C 77 20 124/57 L 88 L 05/16/19 08:12 93 05/16/19 08:11 100 05/16/19 07:44 73 05/16/19 07:37 36.3 C L 75 20 147/53 H 88 L 05/16/19 07:06 66 24 92 05/16/19 04:05 91 05/16/19 03:36 91 05/16/19 03:17 75 20 92 05/16/19 03:01 36.4 C L 22 135/67 90 PG Care Time/CCT Total # of Minutes Spent Total Time Spent with Patient: Total time spent is greater than 50% in coordination of care (as documented) at patient's floor/unit and/or counseling patient: Coding Level of Care Code 69031 Subseq Hosp Care Lvl 3 Diagnoses Bronchiectasis J47.9 Bronchiectasis type: uncomplicated Acute and chronic respiratory failure J96.20 Anxiety F41.9 Depression F32.9 Vasculitis I77.6 Diabetes mellitus type 2 in nonobese E11.9 Hypertension I10 Hypothyroidism E03.9 DVT prophylaxis Z29.9 (1) Bronchiectasis Bronchiectasis type: uncomplicated Qualified Code(s): J47.9 - Bronchiectasis, uncomplicated
[2019-05-16] MEDS: VENLAFAXINE HCL XR 37.5 MG CAPXR PO SCH (16:50)
[2019-05-17] MEDS: ALBUT/IPRATROP 3MG/0.5MG NEB 3 ML VIAL INH SCH ×6 (03:14→23:16)
[2019-05-17] MEDS: LEVOTHYROXINE SODIUM 112 MCG TABLET PO SCH (06:20)
[2019-05-17] MEDS: PIPERACILLIN/TAZOBACTAM 3.375 GM in DEXTROSE 5% 100 ML IV SCH ×3 (06:20→22:23)
[2019-05-17] MEDS: SODIUM CHLOR 7% 4 ML NEB NEB SCH ×2 (07:16→19:11)
[2019-05-17 07:28] LABS: Hematocrit (blood only) 34.5 % (37-47); Hemoglobin 10.5 g/dL (12.0-16.0); Mean Corpuscular Hemoglobin 33.5 pg (25-34); Mean Corpuscular Hgb Conc 30.4 g/dL (32-36); Mean Corpuscular Volume 110.2 fL (80-100); Platelet Count 238 K/uL (130-400); Red Blood Count 3.13 M/uL (4.2-5.4); White Blood Count 8.88 K/uL (4.8-10.8)
[2019-05-17 07:30] LABS: Base Excess VBG 16.8 mEq/L; HCO3 VBG 46 mmol/L; PCO2 VBG 89 mmHg (38-50); PO2 VBG 32 mmHg; pH VBG 7.33 (7.36-7.41)
[2019-05-17 07:37] LABS: Oxygen Saturation VBG < 60.0 %
[2019-05-17 07:59] LABS: BUN Creatinine Ratio 14.1 (10-20); Creatinine Clr Calc Pharmacy 73.8 ml/min; Est GFR (Non-African American) 90.6; Magnesium 1.9 mg/dl (1.8-2.4); Phosphorus 3.1 mg/dl (2.5-4.9); Potassium 4.1 mmol/L (3.5-5.1)
--- NOTE | 2019-05-17 08:02 | Hospitalist Progress Note ---
Date of Service May 17, 2019 Assessment & Plan (1) Bronchiectasis: Significant work-up and long, long treatment for bronchiectasis NOS. Moved from [place] recently to be with family. She reports both infections and colonization by Pseudomonas as well as prior infection and treatment for GEOFFREY (reports she was treated for 19 months). - Getting records from [facility] - Continue home inhaler - Minimize respiratory depressants (namely benzos) - DuoNebs standing & PRN, continue hypertonic saline nebulizers - Pulmonary following - Follow up cultures including AFB -> Growing Gram(-) bacilli. Likely Pseudomonas. Will follow speciation and sensitivities. - Continue Zosyn - Did use the BiPap for 4-5 hours overnight with improvement in VBG PCO2 and pH. Encouraged to keep using. Will need CM to set up a Trilogy on discharge. (2) Acute and chronic respiratory failure: Unclear cause at this point. Attempting to obtain records. - VBG improved slightly today. - As above (3) Anxiety: Has understandably high anxiety about her breathing. - Continue standing home clonazepam 0.25mg PO BID - Continue home medicine venlafaxine 75 mg every morning and lunch, 35.5 mg with dinner - Stable today. (4) Depression: Stable. - As above (5) Vasculitis: Patient has an unknown vasculitis which she reports was ANCA positive. - Hold prednisone & azathioprine per Dr. Barksdale given concern for acute infection. - Will get records tomorrow. - Consider inpatient consult vs. outpatient follow up depending on prior testing. (6) Diabetes mellitus type 2 in nonobese: A1c was 6.1% this admission. - Needed sliding scale insulin while in steroids, but these were quickly stopped by pulmonology - Patient requested stopping AcuChecks. She had only needed 0-1 unit of insulin each check anyhow. Acuchecks and insulin held on 05/17. (7) Hypertension: BP higher today at 150/60. - Continue beta-ranjit (8) Hypothyroidism: TSH was 0.3 this admission, but no signs of hyperthyroidism. - Continue home levothyroxine 112 mcg (9) DVT prophylaxis: Lovenox 30 mg SQ daily Subjective Maybe some mild improvement, but still shortness of breath & productive cough. Reports no fevers/chills, chest pain, abdominal pain, nausea, or vomiting. Physical Exam Constitutional: WD/WN, vitals as above Eyes: EOM intact bilaterally; no conjunctival abnormality ENMT: external ear and nose normal, oropharynx normal Neck: trachea midline, no thyromegaly normal visual inspection Respiratory: + labored breathing; no respiratory distress Auscultation: + diminished lung sounds and + rhonchi (Diffuse throughout) Cardiovascular: RRR, no murmur, no edema Gastrointestinal (Abdomen): Inspection/Auscultation: abdomen normal to inspection; abdomen not distended Musculoskeletal: no cyanosis or clubbing, extremities motor strength 5/5 Skin: no rashes, warm and dry Neurologic: moves all extremities and awake Psychiatric: Orientation: alert, oriented to person and cooperative Results & Data Vital Signs (Past 12 Hours) Vital Signs Temp Pulse Pulse Pulse Resp BP Pulse Ox 05/17/19 07:16 91 H 22 90 05/17/19 07:11 36.6 C 88 16 153/61 H 90 05/17/19 04:20 36.7 C 91 H 20 131/55 L 86 L 05/17/19 03:15 93 H 23 92 05/17/19 03:14 93 H 23 92 05/17/19 00:21 36.6 C 82 18 119/56 L 91 05/16/19 23:36 81 35 H 93 05/16/19 23:34 81 36 H 92 05/16/19 20:19 88 20 89 L PG Care Time/CCT Total # of Minutes Spent Total Time Spent with Patient: Total time spent is greater than 50% in coordination of care (as documented) at patient's floor/unit and/or counseling patient: Coding Level of Care Code 56485 Subseq Hosp Care Lvl 3 Diagnoses Bronchiectasis J47.9 Bronchiectasis type: uncomplicated Acute and chronic respiratory failure J96.20 Anxiety F41.9 Depression F32.9 Vasculitis I77.6 Diabetes mellitus type 2 in nonobese E11.9 Hypertension I10 Hypothyroidism E03.9 DVT prophylaxis Z29.9 (1) Bronchiectasis Bronchiectasis type: uncomplicated Qualified Code(s): J47.9 - Bronchiectasis, uncomplicated
[2019-05-17] MEDS: INSULIN ASPART 100 UNITS/ML 3 ML PEN SC SCH (08:20)
[2019-05-17] MEDS: FLUTICASONE/VILANTEROL 200/25MCG 14 PUFFS/INHALER INH SCH (08:21)
[2019-05-17] MEDS: VENLAFAXINE HCL XR 75 MG CAPXR PO SCH ×2 (08:22→15:23)
[2019-05-17] MEDS: MULTIVITAMIN TAB PO SCH (08:22)
[2019-05-17] MEDS: ATENOLOL 25 MG TABLET PO SCH (08:23)
[2019-05-17] MEDS: PANTOprazole 40 MG TAB PO SCH (08:23)
[2019-05-17] MEDS: clonazePAM 0.5 MG TAB PO SCH ×2 (08:25→22:23)
--- NOTE | 2019-05-17 10:17 | Pulmonology Progress Note ---
Date of Service May 17, 2019 Assessment & Plan (1) Bronchiectasis: Impression: 74-year-old female with history of vasculitis reportedly ANCA positive with bronchiectasis of unclear etiology. She presents with an exacerbation and is found to be significantly hypercarbic on blood gas analysis. This is likely contributing to her hypoxemia as well. Recommendations: 1. Patient's database is incomplete. 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 Reportedly the patient states that these records were provided to her primary care provider. We will be unable to get records over the weekend and this will need to be reassessed on Saturday when caseworkers are available. The evaluation at [facility] would also be beneficial. 2. Bronchiectasis with acute exacerbation. Continue IV Zosyn. Await sputum culture and sensitivities as well as AFB cultures. 3. Aggressive pulmonary toilet will be initiated with hypertonic saline as well as a flutter valve. We will pursue a trial of vest percussive therapy as well 4. Hypercarbic respiratory failure: Continue nocturnal BiPAP. The patient can also use BiPAP during the day as needed. Oxygen should be titrated to keep saturations around 88%. Her venous blood gas showed improvement in PCO2 levels after using noninvasive positive pressure ventilation and the patient will need to be set up with outpatient trilogy. 5. The patient requires physical therapy and Occupational Therapy consultations to determine optimal outpatient living situation. 6. The patient needs to establish with rheumatology. She was advised this is not available as an inpatient. I am not sure if her azathioprine should be continued as I am unclear if this is being provided for lung issue or merely cutaneous vasculitis. In the setting of acute infection, I would favor holding it for now. Urinalysis did show 1+ protein but no hematuria. Again we will need to review results regarding her diagnosis of vasculitis Patient and her family are contemplating CODE STATUS which I think is reasonable. Given the severity of her lung disease, I would favor not putting her on a mechanical ventilator if at all possible Bronchiectasis type: uncomplicated Qualified Code(s): J47.9 - Bronchiectasis, uncomplicated (2) Hypoxia: (3) Hypercapnic respiratory failure: (4) Abnormal CT scan of lung: Subjective Patient sleeping but arousable this morning. She states her breathing is improving. She continues to cough and expectorate phlegm. She not had fevers chills or night sweats overnight. Review of Systems Review of Systems: Unchanged from prior Physical Exam Constitutional: + cachectic and + frail appearing; not ill appearing Eyes: PERRL Neck: trachea midline, no thyromegaly Respiratory: Coarse rhonchi bilaterally with diffuse mid-to-late end expiratory wheezes. Cardiovascular: RRR, no murmur, no edema Gastrointestinal (Abdomen): normal bowel sounds, soft, nontender, no hepatosplenomegaly Psychiatric: A+Ox3, euthymic affect Results & Data Vital Signs (Past 12 Hours) Vital Signs Temp Pulse Pulse Pulse Resp BP Pulse Ox 05/17/19 07:16 91 H 22 90 05/17/19 07:11 36.6 C 88 16 153/61 H 90 05/17/19 04:20 36.7 C 91 H 20 131/55 L 86 L 05/17/19 03:15 93 H 23 92 05/17/19 03:14 93 H 23 92 05/17/19 00:21 36.6 C 82 18 119/56 L 91 05/16/19 23:36 81 35 H 93 05/16/19 23:34 81 36 H 92 Laboratory Results 05/17/19 07:17 05/17/19 07:17 Sputum with gram-negative rods, speciation and sensitivities pending Diagnostic Findings No new imaging PG Care Time/CCT Total # of Minutes Spent Total Time Spent with Patient: Total time spent is greater than 50% in coordination of care (as documented) at patient's floor/unit and/or counseling patient: Coding Level of Care Code 16821 Subseq Hosp Care Lvl 2 Diagnoses Bronchiectasis J47.9 Bronchiectasis type: uncomplicated Hypoxia R09.02 Hypercapnic respiratory failure J96.[address] scan of lung R91.8
[2019-05-17] MEDS ORDERED: INSULIN ASPART 100 UNITS/ML 3 ML PEN SC SCH (10:30)
[2019-05-17] MEDS ORDERED: NORMOSOL-R 500 ML IV ONE (16:23)
--- NOTE | 2019-05-17 16:35 | Billing Data ---
Date of Service May 17, 2019 Coding Level of Care Code 66553 Prolonged Care (int'l) Comment Time in the room with patient: 9:00 am - 9:10 am and 2:15 - 2:45pm
[2019-05-17] MEDS: VENLAFAXINE HCL XR 37.5 MG CAPXR PO SCH (17:07)
[2019-05-18] MEDS: ALBUT/IPRATROP 3MG/0.5MG NEB 3 ML VIAL INH SCH ×6 (02:48→22:58)
[2019-05-18 05:31] LABS: Base Excess VBG 12.3 mEq/L; HCO3 VBG 46 mmol/L; Oxygen Saturation VBG < 60.0 %; PCO2 VBG 134 mmHg (38-50); PO2 VBG 30 mmHg; pH VBG 7.16 (7.36-7.41)
[2019-05-18] MEDS: PIPERACILLIN/TAZOBACTAM 3.375 GM in DEXTROSE 5% 100 ML IV SCH ×3 (05:53→21:08)
[2019-05-18 06:13] LABS: BUN Creatinine Ratio 15.7 (10-20); Calcium 9.2 mg/dl (8.5-10.1); Creatinine Clr Calc Pharmacy 47.5 ml/min; Est GFR (Non-African American) 64.7
[2019-05-18 06:36] LABS: Hemoglobin 11.1 g/dL (12.0-16.0); Mean Corpuscular Hemoglobin 33.9 pg (25-34); Mean Corpuscular Hgb Conc 29.2 g/dL (32-36); Mean Corpuscular Volume 116.2 fL (80-100); Platelet Count 231 K/uL (130-400); Red Blood Count 3.27 M/uL (4.2-5.4); White Blood Count 8.48 K/uL (4.8-10.8)
[2019-05-18] MEDS: SODIUM CHLOR 7% 4 ML NEB NEB SCH ×2 (07:21→20:42)
[2019-05-18] MEDS: VENLAFAXINE HCL XR 75 MG CAPXR PO SCH ×2 (09:46→12:17)
[2019-05-18] MEDS: LEVOTHYROXINE SODIUM 112 MCG TABLET PO SCH (09:46)
[2019-05-18] MEDS: PANTOprazole 40 MG TAB PO SCH (09:47)
[2019-05-18] MEDS: ATENOLOL 25 MG TABLET PO SCH (09:47)
[2019-05-18] MEDS: MULTIVITAMIN TAB PO SCH (09:47)
[2019-05-18] MEDS: FLUTICASONE/VILANTEROL 200/25MCG 14 PUFFS/INHALER INH SCH (09:48)
[2019-05-18 10:11] LABS: Base Excess ABG 12.9 mEq/L (-9-1.8); HCO3 ABG 46 mmol/L (19-24); Oxygen Saturation ABG 90.3 % (90-95); PCO2 ABG 118 mmHg (35-46); PO2 ABG 63 mmHg (80-95)
[2019-05-18 10:17] LABS: Allen Test Pos (Pos)
--- NOTE | 2019-05-18 10:52 | Pulmonology Progress Note ---
Date of Service May 18, 2019 Assessment & Plan (1) Hypercapnic respiratory failure: Patient has a partially compensated respiratory acidosis Patient is ABG this morning reveals a pH of 7.2, PCO2 - 118, PaO2 of 63, and HCO3 of 46. Long discussion with patient and family. No intubation or mechanical ventilation Continue with BiPAP as tolerated Continue with mucoid clearance as tolerated. (2) Bronchiectasis: Patient with history of bronchiectasis diagnosed in [place] Continue with nebulizer treatments to clear mucus Patient would not tolerate bronchoscopy for mucoid clearance -patient and family understand Bronchiectasis type: uncomplicated Qualified Code(s): J47.9 - Bronchiectasis, uncomplicated (3) Acute and chronic respiratory failure: Patient with GEOFFREY, bronchiectasis, ANCA positive vasculitis, chronic hypoxia Continue supplemental oxygen to maintain SaO2 between 88 and 92% Patient is currently alert and oriented with a pH of 7.2 and a PCO2 of 118 on blood gas Continue BiPAP as tolerated Continue supportive care as patient does not want to entertain mechanical ventilation Son scheduled to arrive this evening. 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 We will follow along with you. Please refer to Dr. Siegel's addendum and corrections for further recommendations. Supervising Physician Co-Signing Physician Notes I saw and evaluated the patient with Theo coleman, and agree with findings and plan as documented in the note. Patient seen and examined at bedside. No acute distress. Patient had VBG done in the morning which showed worsening hypercapnia. Her BiPAP setting was increased to 18/8 and patient was put on full patient mask. Repeat ABG after 45 minutes showed improvement in her PCO2 although it is still on the higher side. At the time of examination family members were present at bedside including daughter, and son-in-law. Patient was awake alert oriented x3. Stated that she is feeling better. She does have tobramycin inhaled which is supposed to take at home along with flutter device for her severe chronic bronchiectasis. Patient stated that she is not always compliant with the regimen. Patient was explained the importance of using inhaled tobramycin along with flutter valve. Patient denies any chest pain, no nausea or vomiting. Decreased appetite, no headache, no blurry vision, no hemoptysis. It was again confirmed the patient does not want to be intubated no medical circumstances even it means that she might not make it. Sputum culture growing gram-negative bacilli. Follow-up sensitivity Will DC Breo as I do not want patient to get ICS as patient has bronchiectasis. Continue with duo nebs every 6 hours along with Mucomyst and chest PT. We will get social work involved to see if the patient can get trilogy as well as chest vest. Due to chronic hypercapnic respiratory failure consequent to COPD/bronchiectasis, patient now requires a noninvasive home ventilator. Bilevel therapy with and without a rate would be ineffective as patient requires a volume targeted mode. Ventilation is required to decrease work of breathing and improve pulmonary status. Interruption of ventilator support would lead to decline of health status. NIMV settings should be AVAPS-AE; Breath rate: auto; Inspiratory time:auto; Sigh: off; Tidal Volume: 350-450, PS min: 4-10 PS max: 12-20; EPAP min: 6-10; EPAP max: 10-16; AVAPS rate: 14 during sleep and as needed Treatment plan, prognosis was explained to the family and the patient was present at bedside. All questions were answered in depth. I have spent more than 50% of this 40 minute encounter in counseling and/or coordination of care with patient. Please note the above document was generated using voice recognition software. It may contain grammatical, syntax or spelling errors. Subjective Attending: Dr. Siegel Patient seen and examined at bedside with , daughter, son-in-law present. Patient doing much better today and much more alert and oriented. Overnight, her BiPAP settings were increased to 18/10 and FiO2 of 40%. This morning, patient was able to be reduced to 18/8 and continues FiO2 of 40%. She is saturating at approximately 92% on Oxymask at the time of my visit. Family is very clear that she would not want to be endotracheally intubated and would not want mechanical ventilation. They have had multiple discussions with multiple clinicians at multiple facilities who all expressed concern the patient would not be able to be extubated. They are clear that she would not want a tracheostomy placed. Patient states that she continues with cough this morning with some sputum production that is green and malodorous. This is consistent with what she has had for several months. Patient recently moved to this area in February 2019 to be closer to family. She was previously living in [place] and followed with [facility] [place]. Records have been requested and are currently pending. Patient and family have a clear understanding of the physiology of bronchiectasis and colonized pathology. Patient is awake and alert and is able to provide complete review of systems. She denies fever, chills, sweats, rigors. As previously mentioned she has green sputum. She has no chest pain or tightness. She has no nausea or vomiting. She does not tolerate BiPAP with a mouth/nose mask or a full facemask. She asked that she be left off the BiPAP for a while so that she can have a small amount to eat or drink. Patient's son is arriving from [facility] this evening around 5:00. Review of Systems Review of Systems: All systems reviewed & are unremarkable except as noted in HPI & below Physical Exam Physical Exam: GENERAL : No acute distress. EYES: No icterus, gaze conjugate NOSE: No evidence of epistaxis MOUTH: No lesions or candidiasis. Mucosa is dry NECK: Supple LUNGS: Rhonchorous throughout. Some bronchospasm appreciated in the posterior. Unable to hear other sounds secondary to rhonchi. HEART: Regular, rate controlled ABDOMEN: Soft, NT, ND, BS Present EXTREMITIES: No LE edema, pedal pulses intact NEURO: A&OX3. Results & Data Vital Signs (Past 12 Hours) Vital Signs Temp Pulse Pulse Resp BP BP Pulse Ox 05/18/19 07:26 95 H 28 H 91 05/18/19 07:22 96 H 29 H 92 05/18/19 06:54 35.8 C L 94 H 28 H 126/66 97 05/18/19 03:50 36.7 C 95 H 18 121/67 92 05/18/19 02:48 87 87 27 H 94 05/17/19 23:47 36.8 C 93 H 20 126/65 93 05/17/19 23:17 91 H 29 H 92 05/17/19 23:16 91 H 30 H 92 Laboratory Results 05/18/19 05:20 05/18/19 05:20 05/15/19 05/17/19 05/18/19 11:26 07:17 05:20 ABG pH ABG pCO2 ABG pO2 ABG HCO3 ABG O2 Saturation ABG Base Excess VBG pH 7.22 L 7.33 L 7.16 L VBG pCO2 103 H 89 H 134 H VBG pO2 59 32 30 VBG HCO3 41 46 46 VBG O2 Saturation 87.0 < 60.0 < 60.0 VBG Base Excess 9.8 16.8 12.3 05/18/19 09:59 ABG pH 7.20 L ABG pCO2 118 H ABG pO2 63 L ABG HCO3 46 H ABG O2 Saturation 90.3 ABG Base Excess 12.9 H VBG pH VBG pCO2 VBG pO2 VBG HCO3 VBG O2 Saturation VBG Base Excess PG Care Time/CCT Total # of Minutes Spent Total Time Spent with Patient: Total time spent is greater than 50% in coordination of care (as documented) at patient's floor/unit and/or counseling patient: 50 minutes including discussion with patient and family. Coding Level of Care Code 00579 Subseq Hosp Care Lvl 3 Diagnoses Hypercapnic respiratory failure J96.92 Bronchiectasis J47.9 Bronchiectasis type: uncomplicated Acute and chronic respiratory failure J96.20 GEOFFREY (mycobacterium avium-intracellulare) A31.0 Time Spent (min) 40 Comment >50% time was spent [id number] with the patient discussing diagnosis and plan of care.
--- NOTE | 2019-05-18 11:09 | Palliative Care Consultation ---
Date of Consultation May 18, 2019 Assessment & Plan (1) Goals of care, counseling/discussion: Ms. Hooks is a 74 year old female who presented to the ED today from home with increased SOB that has occurred over a 48 hour period. Additional PMH includes: chronic respiratory failure and is oxygen dependent (2LNC continuous), anxiety, depression, diabetes mellitus type 2, GERD, vasculitis, and bronchiectasis. The patient and her have recently moved to [place] from [place] just over a month ago to be closer to their daughter, Elly. They are trying to establish care in the area and have been seeing pulmonology in [place] and have also had a consultation in [place]. The patient reports that her lifestyle is sedentary because she has so much dyspnea with exertion that has been occurring for over one year. The patient is being treated with acute on chronic respiratory failure with duo nebs, antibiotics (Zosyn), Bipap as tolerated, and flutter valve treatment QID. The patient is currently a Full Code. Palliative care was consulted to discuss goals of care. -I met with the patient in room 217. She was sitting upright in her hospital bed with Bipap mask in place. Pt Matthew, and daughter Elly were at the bedside. -The patient stated that she was having some pain, but mostly related to her vasculitis, which she feels has gotten worse since this exacerbation. -She stated that at baseline, she wears 2-3 LNC for the past year and half. She stated that much exertion causes her dyspnea. -Yesterday, the patient was almost fully obtunded. She was placed on Bipap and is now awake. She now is partially compensated respiratory with a slightly improving ABG. Currently her pH is 7.16, CO2 118 (improved from 134), HCO3 46. PaO2 remains low 60's. patient is currently on BiPap 0.40%, SpO2 92-93%. -We discussed symptom management and discussed air hunger. No current symptom management needs. -Patient was able to tolerate being off of BiPap for one hour today to eat. She did tolerate this. -We talked about her goals of care and code status. She currently was a conditional code and we talked at length about CPR and intubation. After discussion, she understands that CPR likely wouldnt benefit her in the long run and agreed to DNR/DNI status, which will now be reflective in the computer. I did discuss and reiterate that if she would worsen despite BiPap, that if she was not intubated that she would . I confirmed we would keep her comfortable during that process. Patient, and daughter understand and are in agreement to avoid intubation. -We talked about COPD and its typical projectory with increased frequency and quantity of flares. -Her asked about keeping [facility] where they currently live independently. We discussed [facility] and its capabilities with Hospice services. -We discussed the POLST form, and I left a blank one with the patients family to discuss and complete. The patient has a POLST form that has been completed, but indicated Full Code. Discussed we can update her wishes with a new POLST. -For now, code status has been changed to DNR/DNI. We will continue to see how the patient responds to abx and current treatment. -We confirmed that there will not be escalation of care and that the patient does NOT want intensive care unit. Should she decompensate, continue further discussions regarding transitioning to Comfort Measures Only. -Palliative will continue to follow over the next 24-48 hours to see if she is stabilizing vs declining and continue to offer support. Should she becoming increasingly dyspnic and becomes more dependent on BiPap, I would suggest starting Roxanol 10 mg SL Q 4 PRN for air hunger/pain. PPS: 30% (2) Acute and chronic respiratory failure: (3) Anxiety: Supervising Physician Co-Signing Physician Notes Chart reviewed, patient seen and examined. Patient's , daughter and granddaughter at bedside Collaborated with ОЛЬГА Liu PE: Patient awake and alert, full face BiPAP mask in place HEENT: EOMI, hearing within normal limits Respirations: Unlabored, diminished breath sounds CV: Regular rate Abdomen: Not distended Extremities: Full range of motion Neuro: Alert and oriented Agree with above note, assessment and plan as per ОЛЬГА Liu. Will continue to follow and assist as well as provide support to family and patient with medical decision making History of Present Illness Reason for Consultation: Goals of Care Requesting Physician: Dr. Maximilian Dennis Attending Physician: Brant Edward History of Present Illness Ms. Hooks is a 74 year old female who presented to the ED today from home with increased SOB that has occurred over a 48 hour period. Additional PMH includes: chronic respiratory failure and is oxygen dependent (2LNC continuous), anxiety, depression, diabetes mellitus type 2, GERD, vasculitis, and bronchiectasis. The patient and her have recently moved to [place] from [place] just over a month ago to be closer to their daughter, Elly. They are trying to establish care in the area and have been seeing pulmonology in [place] and have also had a consultation in [place]. The patient reports that her lifestyle is sedentary because she has so much dyspnea with exertion that has been occurring for over one year. The patient is being treated with acute on chronic respiratory failure with duo nebs, antibiotics (Zosyn), Bipap as tolerated, and flutter valve treatment QID. The patient is currently a Full Code. Palliative care was consulted to discuss goals of care. Please see A/P for further details. Thank you kindly for involving the palliative care team with this patient. Allergies Allergy/AdvReac Type Severity Reaction Status Date / Time levofloxacin Allergy Unknown Unverified 05/15/19 12:47 Sulfa (Sulfonamide Allergy Unknown Unverified 05/15/19 12:47 Antibiotics) Home Medications Home Medications Medication Instructions Recorded Confirmed Type atenolol 25 mg PO QAM 05/15/19 05/15/19 History azathioprine 50 mg PO QAM 05/15/19 05/15/19 History clonazepam 0.5 mg PO BID 05/15/19 05/15/19 History esomeprazole magnesium [Nexium] 40 mg PO QAM 05/15/19 05/15/19 History ipratropium-albuterol 3 ml INHALATION QID 05/15/19 05/15/19 History levothyroxine [Synthroid] 112 mcg PO QAM 05/15/19 05/15/19 History metformin 0 mg PO PM 05/15/19 05/15/19 History prednisone 5 mg PO QAM 05/15/19 05/15/19 History sodium chloride 4 ml INHALATION BID 05/15/19 05/15/19 History tobramycin [Dionicio Podhaler] 28 mg INHALATION UD 05/15/19 05/15/19 History venlafaxine 37.5 mg PO PM 05/15/19 05/15/19 History venlafaxine 75 mg PO PM 05/15/19 05/15/19 History venlafaxine 75 mg PO QAM 05/15/19 05/15/19 History Patient History Medical History (Updated 05/18/19 @ 11:09 by ОЛЬГА Liu) Bronchiectasis Goals of care, counseling/discussion GEOFFREY (mycobacterium avium-intracellulare) Vasculitis Family History Other Family history non-contributory Social History Preferred Language: Swedish Communication Ability: Effective Instrument Tester Required: No Beliefs That Will Affect Care: Sikh Sikh Beliefs: Orthodox. Current Living Situation: Spouse Current Living Situation Comment: [facility]. Other Information That Helps Us Care for You: No Feels Safe at Home: Yes Safety Concerns: Feels Safe At This Time Smoking Status: Former smoker Do You Dip or Chew Tobacco: No ; Smoking End Date: 40+Years ago. ; Second Hand Exposure: No ; Tobacco Cessation Education Requested by Patient: No Hx Alcohol Use: No Hx Substance Use: No Review of Systems Review of Systems: General: Pt denies overall pain. + peripheral neuropathy in bilateral LE. HEENT: (-) visual changes, dysphagia CV: Pt denies chest pain, palpitations Resp: + SOB GI: (-) abdominal pain. (+) appetite Physical Exam Constitutional: well developed, cooperative, comfortable and + lethargic Respiratory: + uses accessory muscles and symmetric chest movement Auscultation: + diminished lung sounds Gastrointestinal (Abdomen): normal bowel sounds, soft, nontender, no hepatosplenomegaly Skin: no rashes, warm and dry Psychiatric: A+Ox3, euthymic affect Genitourinary: Lymphatic: no cervical or axillary lymphadenopathy Results & Data Vital Signs (Past 12 Hours) Vital Signs Temp Pulse Pulse Resp BP BP Pulse Ox 05/18/19 11:06 90 24 94 05/18/19 07:26 95 H 28 H 91 05/18/19 07:22 96 H 29 H 92 05/18/19 06:54 35.8 C L 94 H 28 H 126/66 97 05/18/19 03:50 36.7 C 95 H 18 121/67 92 05/18/19 02:48 87 87 27 H 94 05/17/19 23:47 36.8 C 93 H 20 126/65 93 05/17/19 23:17 91 H 29 H 92 05/17/19 23:16 91 H 30 H 92 PG Care Time/CCT Total # of Minutes Spent Total Time Spent with Patient: Total time spent is greater than 50% in coordination of care (as documented) at patient's floor/unit and/or counseling patient: 70 Coding Level of Care Code 10591 Inpt Consult Level 3 Diagnoses Goals of care, counseling/discussion Z71.89 Acute and chronic respiratory failure J96.20 Anxiety F41.9 Time Spent (min) 70 Time Spent Midlevel Total time spent 70 minutes with > 50% of that time spent assessing the patient, discussing goals of care with family and IDT at the bedside.
[2019-05-18 16:45] LABS: HCO3 ABG 43 mmol/L (19-24); Oxygen Saturation ABG 95.4 % (90-95); PCO2 ABG 59 mmHg (35-46); PO2 ABG 75 mmHg (80-95); pH ABG 7.48 (7.35-7.45)
[2019-05-18 16:46] LABS: Allen Test Pos (Pos)
[2019-05-18] MEDS: VENLAFAXINE HCL XR 37.5 MG CAPXR PO SCH (18:07)
[2019-05-18] MEDS: clonazePAM 0.5 MG TAB PO SCH (19:47)
[2019-05-18] MEDS: ACETYLCYSTEINE 20% INHAL SOLN 4ML ***DISPENSED BY RESP. INH SCH (20:42)
--- NOTE | 2019-05-18 21:02 | Hospitalist Progress Note ---
Date of Service May 18, 2019 Assessment & Plan (1) Acute hypercapnic respiratory failure: [age]-year-old female was found to be in acute hypercapnic respiratory failure. Despite being on BiPAP overnight patient continued to retain carbon oxide. Changes to the BiPAP settings were done with increased IPAP decreased the oxygen goal was to maintain tidal volume above 350. On repeat blood gases carbon oxide did improve over the course of the day. Patient also felt some relief as well. Case was discussed with the critical care attending. Patient refused to be intubated and will continue to treat with the BiPAP machine. Conversation was done with the family at bedside. This was a life threatening condition, and spent over 30 minutes on the case. 32 MINUTES WERE SPENT FOR CRITICAL CARE MANAGEMENT. (2) Bronchiectasis: Significant work-up and long, long treatment for bronchiectasis NOS. Moved from [place] recently to be with family. She reports both infections and colonization by Pseudomonas as well as prior infection and treatment for GEOFFREY (reports she was treated for 19 months). - Getting records from [place] doctors - Continue home inhaler - Minimize respiratory depressants (namely benzos) - DuoNebs standing & PRN, continue hypertonic saline nebulizers - Pulmonary following - Follow up cultures including AFB -> Growing Gram(-) bacilli. Likely Pseudomonas. Will follow speciation and sensitivities. - Continue Zosyn Blood gases were worse on 05/18, but improved over course of the day. (3) Acute and chronic respiratory failure: Unclear cause at this point. Attempting to obtain records. - As above (4) Anxiety: Has understandably high anxiety about her breathing. - Continue standing home clonazepam 0.25mg PO BID - Continue home medicine venlafaxine 75 mg every morning and lunch, 35.5 mg with dinner - Stable today. (5) Depression: Stable. 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 - Hold prednisone & azathioprine per Dr. Barksdale given concern for acute infection. - Will get records tomorrow. - Consider inpatient consult vs. outpatient follow up depending on prior testing. (7) Diabetes mellitus type 2 in nonobese: A1c was 6.1% this admission. - Needed sliding scale insulin while in steroids, but these were quickly stopped by pulmonology - Patient requested stopping AcuChecks. She had only needed 0-1 unit of insulin each check anyhow. Acuchecks and insulin held on 05/17. (8) Hypertension: BP higher today at 150/60. - Continue beta-ranjit (9) Hypothyroidism: TSH was 0.3 this admission, but no signs of hyperthyroidism. - Continue home levothyroxine 112 mcg (10) DVT prophylaxis: Lovenox 30 mg SQ daily Fermin Root is a 74-year-old female who had a rough night. She states appears to not have tolerated the BiPAP machine. Also on room because a repeat VBG showed elevated CO2. Once able walk 10 mask was changed. The patient was more comfortable with this new mask. Explained to the particular therapist to increased IPAP and decreased O2 sat to maintain between 88 and 92% Patient reports feeling tired. On my second visit, later in the day, patient had improved. Family was at bedside and were updated. Wa called again in the afternoon as patient had become more agitated, ut once i returned to the room, patient was back to her baseline. Patient was asked if she deteriorates, if she would like to be intubated, she states no. Review of Systems Review of Systems: All systems reviewed & are unremarkable except as noted in HPI & below Physical Exam Physical Exam: Constitutional: WD/WN, vitals as above Eyes: EOM intact bilaterally; no conjunctival abnormality ENMT: external ear and nose normal, oropharynx normal Neck: trachea midline, no thyromegaly normal visual inspection Respiratory: + labored breathing; no respiratory distress Auscultation: + diminished lung sounds and + rhonchi (Diffuse throughout) Cardiovascular: RRR, no murmur, no edema Gastrointestinal (Abdomen): Inspection/Auscultation: abdomen normal to inspection; abdomen not distended Musculoskeletal: no cyanosis or clubbing, extremities motor strength 5/5 Skin: no rashes, warm and dry Neurologic: moves all extremities and awake Psychiatric: Orientation: alert, oriented to person and cooperative Results & Data Vital Signs (Past 12 Hours) Vital Signs Temp Pulse Pulse Resp BP BP Pulse Ox 05/18/19 20:50 91 H 22 97 05/18/19 20:00 36.9 C 92 H 23 119/61 93 05/18/19 16:00 89 05/18/19 15:26 84 32 H 05/18/19 15:15 36.9 C 87 25 H 107/61 99 05/18/19 12:42 95 H 01/27/20 11:08 90 26 H 94 05/18/19 11:06 90 24 94 05/18/19 11:00 35.9 C L 78 24 117/70 98 PG Care Time/CCT Total # of Minutes Spent Total Time Spent with Patient: Total time spent is greater than 50% in coordination of care (as documented) at patient's floor/unit and/or counseling patient: Critical Care Time: Yes Total Critical Care Time: 32 Coding Level of Care Code 88741 Subseq Hosp Care Lvl 3 Diagnoses Acute hypercapnic respiratory failure J96.02 Bronchiectasis J47.9 Bronchiectasis type: uncomplicated Acute and chronic respiratory failure J96.20 Anxiety F41.9 Depression F32.9 Vasculitis I77.6 Diabetes mellitus type 2 in nonobese E11.9 Hypertension I10 Hypothyroidism E03.9 DVT prophylaxis Z29.9 Additional Codes Critical Care Time - Critical Care Time: Yes ([id number]) Time Spent (min) 55 (1) Bronchiectasis Bronchiectasis type: uncomplicated Qualified Code(s): J47.9 - Bronchiectasis, uncomplicated
[2019-05-19] MEDS: ALBUT/IPRATROP 3MG/0.5MG NEB 3 ML VIAL INH SCH ×6 (02:43→22:38)
[2019-05-19] MEDS: PIPERACILLIN/TAZOBACTAM 3.375 GM in DEXTROSE 5% 100 ML IV SCH ×3 (05:23→23:07)
[2019-05-19] MEDS: LEVOTHYROXINE SODIUM 112 MCG TABLET PO SCH (05:23)
[2019-05-19] MEDS: ACETYLCYSTEINE 20% INHAL SOLN 4ML ***DISPENSED BY RESP. INH SCH ×2 (06:59→19:32)
[2019-05-19] MEDS: SODIUM CHLOR 7% 4 ML NEB NEB SCH ×2 (06:59→19:31)
[2019-05-19] MEDS ORDERED: clonazePAM 0.5 MG TAB PO STA (08:09)
[2019-05-19] MEDS: ATENOLOL 25 MG TABLET PO SCH (08:25)
[2019-05-19] MEDS: MULTIVITAMIN TAB PO SCH (08:26)
[2019-05-19] MEDS: PANTOprazole 40 MG TAB PO SCH (08:26)
[2019-05-19] MEDS: VENLAFAXINE HCL XR 75 MG CAPXR PO SCH ×2 (08:26→11:41)
--- NOTE | 2019-05-19 08:28 | Hospitalist Progress Note ---
Date of Service May 19, 2019 Assessment & Plan (1) Acute hypercapnic respiratory failure: [age]-year-old female was found to be in acute hypercapnic respiratory failure. Despite being on BiPAP overnight patient continued to retain carbon oxide. Changes to the BiPAP settings were done with increased IPAP decreased the oxygen goal was to maintain tidal volume above 350. On repeat blood gases carbon oxide did improve over the course of the day. Patient also felt some relief as well. Case was discussed with the critical care attending. Patient refused to be intubated and will continue to treat with the BiPAP machine. Conversation was done with the family at bedside. Patient continues to be intermittently confused. Will continue with BIPAP. (2) Bronchiectasis: Significant work-up and long, long treatment for bronchiectasis NOS. Moved from [place] recently to be with family. She reports both infections and colonization by Pseudomonas as well as prior infection and treatment for GEOFFREY (reports she was treated for 19 months). - Getting records from [place] doctors - Continue home inhaler - Minimize respiratory depressants (namely benzos) - DuoNebs standing & PRN, continue hypertonic saline nebulizers - Pulmonary following - Follow up cultures including AFB -> Growing Gram(-) bacilli. Likely Pseudomonas. Will follow speciation and sensitivities. - Continue Zosyn Blood gases were worse on 05/18, but improved over course of the day. (3) Acute and chronic respiratory failure: Unclear cause at this point. Attempting to obtain records. - As above (4) Anxiety: Has understandably high anxiety about her breathing. - Continue standing home clonazepam 0.25mg PO BID - Continue home medicine venlafaxine 75 mg every morning and lunch, 35.5 mg with dinner - Stable today. (5) Depression: Stable. 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 - Hold prednisone & azathioprine per Dr. Barksdale given concern for acute infection. - Will get records tomorrow. - Consider inpatient consult vs. outpatient follow up depending on prior testing. (7) Diabetes mellitus type 2 in nonobese: A1c was 6.1% this admission. - Needed sliding scale insulin while in steroids, but these were quickly stopped by pulmonology - Patient requested stopping AcuChecks. She had only needed 0-1 unit of insulin each check anyhow. Acuchecks and insulin held on 05/17. (8) Hypertension: BP higher today at 150/60. - Continue beta-ranjit (9) Hypothyroidism: TSH was 0.3 this admission, but no signs of hyperthyroidism. - Continue home levothyroxine 112 mcg (10) DVT prophylaxis: Lovenox 30 mg SQ daily (11) Acute metabolic encephalopathy: Likely multifactorial due to lack of sleep and hypercapnia and possible some delirum from being in the hospital. Will provide some seroquel. Will continue to monitor. Updated family. Subjective Patient has been confused today and has not been providing a good history. Patient did not sleep at all last night. As per nurses, patient has been trying to remove BIPAP mask. Review of Systems Review of Systems: All systems reviewed & are unremarkable except as noted in HPI & below Physical Exam Physical Exam: Constitutional: WD/WN, vitals as above Eyes: EOM intact bilaterally; no conjunctival abnormality ENMT: external ear and nose normal, oropharynx normal Neck: trachea midline, no thyromegaly normal visual inspection Respiratory: no respiratory distress Auscultation: + diminished lung sounds Cardiovascular: RRR, no murmur, no edema Gastrointestinal (Abdomen): Inspection/Auscultation: abdomen normal to inspection; abdomen not distended Musculoskeletal: no cyanosis or clubbing, extremities motor strength 5/5 Skin: no rashes, warm and dry Neurologic: moves all extremities and awake Psychiatric: Orientation: alert, oriented to person and cooperative Results & Data Vital Signs (Past 12 Hours) Vital Signs Temp Pulse Pulse Resp BP BP Pulse Ox 05/19/19 07:46 36.7 C 112 H 26 H 132/61 86 L 05/19/19 07:00 105 H 24 96 05/19/19 04:16 36.6 C 102 H 24 130/61 88 L 05/19/19 02:46 91 H 31 H 95 05/19/19 02:44 91 H 31 H 95 05/19/19 00:00 36.6 C 94 H 18 111/58 L 93 05/18/19 22:58 95 H 30 H 91 05/18/19 22:22 93 H 28 H 91 05/18/19 20:50 91 H 22 97 PG Care Time/CCT Total # of Minutes Spent Total Time Spent with Patient: Total time spent is greater than 50% in coordination of care (as documented) at patient's floor/unit and/or counseling patient: Coding Level of Care Code 06730 Subseq Hosp Care Lvl 3 Diagnoses Acute hypercapnic respiratory failure J96.02 Bronchiectasis J47.9 Bronchiectasis type: uncomplicated Acute and chronic respiratory failure J96.20 Anxiety F41.9 Depression F32.9 Vasculitis I77.6 Diabetes mellitus type 2 in nonobese E11.9 Hypertension I10 Hypothyroidism E03.9 DVT prophylaxis Z29.9 Acute metabolic encephalopathy G93.41 Time Spent (min) 45 (1) Bronchiectasis Bronchiectasis type: uncomplicated Qualified Code(s): J47.9 - Bronchiectasis, uncomplicated
[2019-05-19 08:40] LABS: HCO3 VBG 46 mmol/L; PCO2 VBG 92 mmHg (38-50); PO2 VBG 30 mmHg; pH VBG 7.31 (7.36-7.41)
[2019-05-19 08:41] LABS: Oxygen Saturation VBG < 60.0 %
[2019-05-19 08:43] LABS: Hematocrit (blood only) 31.6 % (37-47); Hemoglobin 9.7 g/dL (12.0-16.0); Mean Corpuscular Hemoglobin 33.9 pg (25-34); Mean Corpuscular Hgb Conc 30.7 g/dL (32-36); Mean Corpuscular Volume 110.5 fL (80-100); Mean Platelet Volume 9.3 fL (7.4-10.4); Platelet Count 203 K/uL (130-400); RDW Coefficient of Variation 15.9 % (11.5-14.5); RDW Standard Deviation 63.4 fL (36.4-46.3); Red Blood Count 2.86 M/uL (4.2-5.4); White Blood Count 9.67 K/uL (4.8-10.8)
[2019-05-19 08:46] LABS: Allen Test Pos (Pos); Base Excess ABG 16.6 mEq/L (-9-1.8); HCO3 ABG 45 mmol/L (19-24); PCO2 ABG 79 mmHg (35-46); PO2 ABG 67 mmHg (80-95); pH ABG 7.37 (7.35-7.45)
[2019-05-19 09:05] LABS: BUN Creatinine Ratio 17.9 (10-20); Calcium 9.1 mg/dl (8.5-10.1); Creatinine Clr Calc Pharmacy 56.6 ml/min; Est GFR (African American) 92.7; Potassium 3.8 mmol/L (3.5-5.1)
--- NOTE | 2019-05-19 13:30 | Pulmonology Progress Note ---
Date of Service May 19, 2019 Assessment & Plan (1) Hypercapnic respiratory failure: Patient has a partially compensated respiratory acidosis Patient is ABG this morning reveals slight improvement as compared to yesterday. PCO2 is still elevated at 78 Confirmed with family and with patient that they still elect no intubation or mechanical ventilation Continue with BiPAP as tolerated Continue with mucoid clearance as tolerated. Patient discussing discharged to a halfway facility for BiPAP support (2) Bronchiectasis: Patient with history of bronchiectasis diagnosed in [place] Continue with duoneb and Mucomyst treatments No Breo Ellipta or other ICS Patient would not tolerate bronchoscopy for mucoid clearance -patient and family understand Continue supportive care Bronchiectasis type: uncomplicated Qualified Code(s): J47.9 - Bronchiectasis, uncomplicated (3) Acute and chronic respiratory failure: Patient with hx GEOFFREY which was treated for a full course of triple antibiotics x18 months in [place] Further hx of bronchiectasis, ANCA positive vasculitis, chronic hypoxia Continue supplemental oxygen to maintain SaO2 between 88 and 92% Patient is currently alert and oriented Continue BiPAP as tolerated * Working with [facility] patient to get approval for trilogy on discharge Continue supportive care as patient does not want to entertain mechanical ventilation Due to chronic hypercapnic respiratory failure consequent to COPD/bronchiectasis, patient now requires a noninvasive home ventilator. Bilevel therapy with and without a rate would be ineffective as patient requires a volume targeted mode. Ventilation is required to decrease work of breathing and improve pulmonary stat us. Interruption of ventilator support would lead to decline of health status. 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 and completed treatment with 3 drug regimen for 18 months Current AFB is negative smear, culture is pending Sputum culture is growing gram-negative bacilli -continue Zosyn to cover Pseudomonas Patient also history of chronic Pseudomonas and cyclical tobramycin nebs -27 days on/27 days off The tobramycin nebs have been stopped this hospital stay Although the patient is following with [facility], she has only seen them 1 time Patient's family would appreciate if she could follow with [facility] in addition to [facility] on discharge Follow expectantly Thank you for including us in the care of this patient. We will follow along with you. Please refer to Dr. Siegel's addendum and corrections for further recommendations. Supervising Physician Co-Signing Physician Notes I saw and evaluated the patient with Theo coleman, and agree with findings and plan as documented in the note. Patient seen and examined at bedside. No acute distress, no adverse events overnight. ABG from today shows pH of 7.37 PCO2 of 79 which I think is her baseline. Patient states shortness of breath is better and was compliant with her BiPAP overnight. Patient does have some hallucinations overnight but she said that she had all her family was at her and disturb her at night. I do not think this hallucination/delirium is secondary to hypercapnia anymore. From pulmonary perspective I would continue with chest vest therapy along with flutter valve continue with antibiotics and BiPAP. Sputum culture growing gram-negative bacilli. Follow-up sensitivity Continue with duo nebs every 6 hours along with Mucomyst and chest PT. We will get social work involved to see if the patient can get trilogy as well as chest vest. Please note the above document was generated using voice recognition software. It may contain grammatical, syntax or spelling errors. Subjective Patient seen and examined at bedside with daughter present. Patient taken off of CPAP momentarily and found to have an SaO2 of 70% without any oxygen supplemented and without positive pressure. Placed back on BiPAP at 18/8 at FiO2 of 40% and saturations increased to 93% almost immediately. In discussion with daughter, patient has been more confused and had some hallucinations earlie r today. Plans are being worked [facility] but patient is resistant. Patient states that she is somewhat short of breath but not in severe distress. She has having difficulty sleeping at night. She denies fever, sweats, chills, rigors. She has no nausea or vomiting. She is beginning to have more more irritation with the positive pressure mask. The patient has no other acute complaints. Review of Systems Review of Systems: All systems reviewed & are unremarkable except as noted in HPI & below Physical Exam Physical Exam: GENERAL : No acute distress. EYES: No icterus, gaze conjugate NOSE: No evidence of epistaxis. There is some irritation evidence across the bridge of patient's nose with no open wounds secondary to BiPAP mask MOUTH: No lesions or candidiasis. Mucosa is dry NECK: Supple LUNGS: Overall, patient's breath sounds are better today. She still has coarse rales at the bases bilaterally. No overt rhonchi and no bronchospasm appreciated. HEART: Regular, rate controlled ABDOMEN: Soft, NT, ND, BS Present EXTREMITIES: No LE edema, pedal pulses intact NEURO: A&OX3. Results & Data Vital Signs (Past 12 Hours) Vital Signs Temp Pulse Pulse Resp BP Pulse Ox 05/19/19 11:59 88 91 05/19/19 11:12 85 21 96 05/19/19 11:11 36.4 C L 86 26 H 122/66 97 05/19/19 10:19 84 30 H 94 05/19/19 07:46 36.7 C 112 H 26 H 132/61 86 L 05/19/19 07:00 105 H 24 96 05/19/19 04:16 36.6 C 102 H 24 130/61 88 L 05/19/19 02:46 91 H 31 H 95 05/19/19 02:44 91 H 31 H 95 Laboratory Results 05/19/19 08:19 05/19/19 08:19 05/15/19 05/17/19 05/18/19 11:26 07:17 05:20 ABG pH ABG pCO2 ABG pO2 ABG HCO3 ABG O2 Saturation ABG Base Excess VBG pH 7.22 L 7.33 L 7.16 L VBG pCO2 103 H 89 H 134 H VBG pO2 59 32 30 VBG HCO3 41 46 46 VBG O2 Saturation 87.0 < 60.0 < 60.0 VBG Base Excess 9.8 16.8 12.3 05/18/19 05/18/19 05/19/19 09:59 16:33 08:19 ABG pH 7.20 L 7.48 H ABG pCO2 118 H 59 H ABG pO2 63 L 75 L ABG HCO3 46 H 43 H ABG O2 Saturation 90.3 95.4 H ABG Base Excess 12.9 H 17.0 H VBG pH 7.31 L VBG pCO2 92 H VBG pO2 30 VBG HCO3 46 VBG O2 Saturation < 60.0 VBG Base Excess 16.0 05/19/19 08:35 ABG pH 7.37 ABG pCO2 79 H ABG pO2 67 L ABG HCO3 45 H ABG O2 Saturation 92.0 ABG Base Excess 16.6 H VBG pH VBG pCO2 VBG pO2 VBG HCO3 VBG O2 Saturation VBG Base Excess Diagnostic Findings No further imaging since 05/15/2019 PG Care Time/CCT Total # of Minutes Spent Total Time Spent with Patient: Total time spent is greater than 50% in coordination of care (as documented) at patient's floor/unit and/or counseling patient: 30 minutes Coding Level of Care Code 35388 Subseq Hosp Care Lvl 2 Diagnoses Hypercapnic respiratory failure J96.92 Bronchiectasis J47.9 Bronchiectasis type: uncomplicated Acute and chronic respiratory failure J96.20 GEOFFREY (mycobacterium avium-intracellulare) A31.0
[2019-05-19] MEDS ORDERED: QUETIAPINE FUMARATE 25 MG TABLET PO ONE (16:00)
[2019-05-19] MEDS: VENLAFAXINE HCL XR 37.5 MG CAPXR PO SCH (17:16)
[2019-05-19] MEDS: clonazePAM 0.5 MG TAB PO SCH (21:27)
[2019-05-20] MEDS: ALBUT/IPRATROP 3MG/0.5MG NEB 3 ML VIAL INH SCH ×5 (03:05→19:00)
[2019-05-20] MEDS: PIPERACILLIN/TAZOBACTAM 3.375 GM in DEXTROSE 5% 100 ML IV SCH ×3 (06:10→21:25)
[2019-05-20] MEDS: LEVOTHYROXINE SODIUM 112 MCG TABLET PO SCH (06:11)
[2019-05-20] MEDS: SODIUM CHLOR 7% 4 ML NEB NEB SCH ×2 (07:02→19:01)
[2019-05-20] MEDS: ACETYLCYSTEINE 20% INHAL SOLN 4ML ***DISPENSED BY RESP. INH SCH ×2 (07:02→19:01)
[2019-05-20] MEDS: ATENOLOL 25 MG TABLET PO SCH (08:23)
[2019-05-20] MEDS: PANTOprazole 40 MG TAB PO SCH (08:23)
[2019-05-20] MEDS: VENLAFAXINE HCL XR 75 MG CAPXR PO SCH ×2 (08:23→11:23)
[2019-05-20] MEDS: MULTIVITAMIN TAB PO SCH (08:23)
[2019-05-20 10:09] LABS: Basophils # (auto) 0.03 K/uL (0-0.2); Basophils % (auto) 0.4 %; Eosinophils # (auto) 0.29 K/uL (0-0.5); Eosinophils % (auto) 3.8 %; Hematocrit (blood only) 31.4 % (37-47); Hemoglobin 9.8 g/dL (12.0-16.0); Immature Granulocytes # (auto) 0.02 K/uL (0.00-0.02); Immature Granulocytes % (auto) 0.3 %; Lymphocytes # (auto) 2.19 K/uL (1.2-3.4); Lymphocytes % (auto) 28.7 %; Mean Corpuscular Hemoglobin 34.3 pg (25-34); Mean Corpuscular Hgb Conc 31.2 g/dL (32-36); Mean Corpuscular Volume 109.8 fL (80-100); Monocytes # (auto) 0.64 K/uL (0.11-0.59); Monocytes % (auto) 8.4 %; Neutrophils # (auto) 4.46 K/uL (1.4-6.5); Neutrophils % (auto) 58.4 %; Platelet Count 214 K/uL (130-400); RDW Coefficient of Variation 16.2 % (11.5-14.5); RDW Standard Deviation 64.8 fL (36.4-46.3); Red Blood Count 2.86 M/uL (4.2-5.4); White Blood Count 7.63 K/uL (4.8-10.8)
[2019-05-20 10:11] LABS: Allen Test Pos (Pos); Base Excess ABG 15.7 mEq/L (-9-1.8); HCO3 ABG 44 mmol/L (19-24); PCO2 ABG 79 mmHg (35-46); PO2 ABG 101 mmHg (80-95); pH ABG 7.37 (7.35-7.45)
[2019-05-20 10:46] LABS: BUN Creatinine Ratio 13.2 (10-20); Calcium 9.1 mg/dl (8.5-10.1); Creatinine Clr Calc Pharmacy 62.6 ml/min; Est GFR (African American) 99.5; Est GFR (Non-African American) 85.8; Magnesium 2.3 mg/dl (1.8-2.4); Phosphorus 2.5 mg/dl (2.5-4.9)
--- NOTE | 2019-05-20 13:10 | Pulmonology Progress Note ---
Date of Service May 20, 2019 Assessment & Plan (1) Hypercapnic respiratory failure: -- Acute on chronic hypercapnic hypoxic respiratory failure ABG from today shows 7.3 7/79/101/97 and this is on 7 L nasal cannula. Continue with BiPAP as tolerated Continue with mucoid clearance as tolerated. Patient discussing discharged to a [facility] facility for [facility] support Recommend to keep O2 saturation between 88 to 92% Compliance with BiPAP is very important for the patient along with chest vest and mucolytic therapy. Sputum culture is growing Pseudomonas aeruginosa which is pansensitive. Could transition Zosyn to levofloxacin p.o for 3 more days and then she can go back to her inhaled tobramycin dose nebs -27 days on/27 days off for chronic suppression of Pseudomonas. From pulmonary perspective I think she is doing better. She will benefit from pulmonary rehab. Social work is already been consulted for trilogy and chest vest. Due to chronic hypercapnic respiratory failure consequent to COPD/bronchiectasis, patient now requires a noninvasive home ventilator. Bilevel therapy with and without a rate would be ineffective as patient requires a volume targeted mode. Ventilation is required to decrease work of breathing and improve pulmonary s tatus. Interruption of ventilator support would lead to decline of health status. NIMV settings should be AVAPS-AE; Breath rate: auto; Inspiratory time:auto; Sigh: off; Tidal Volume: 350-450, PS min: 4-10 PS max: 12-20; EPAP min: 6-10; EPAP max: 10-16; AVAPS rate: 14 during sleep and as needed (2) Bronchiectasis: Patient with history of bronchiectasis diagnosed in [place] Continue with duoneb and Mucomyst treatments No Breo Ellipta or other ICS Patient would not tolerate bronchoscopy for mucoid clearance -patient and family understand Continue supportive care Bronchiectasis type: uncomplicated Qualified Code(s): J47.9 - Bronchiectasis, uncomplicated (3) Acute and chronic respiratory failure: (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 No acute distress, no adverse events overnight. Patient states that she slept well after long time in the hospital. Denies any hallucinations. Nurse also denies any hallucinations overnight. Eating well. Using chest vest. No nausea or vomiting. No chest pain, shortness of breath is improved. Review of Systems Review of Systems: All systems reviewed & are unremarkable except as noted in HPI & below Physical Exam Physical Exam: Constitutional: No acute distress HEENT: EOMI, PERRLA Respiratory system: Decreased air entry bilaterally, positive rhonchi bilaterally, positive crackles bilateral, no wheeze CVS: S1-S2 positive, no murmurs or gallops, accentuated P2 Abdomen: Soft, nontender, nondistended, positive bowel sounds x4 Extremities: +2 pulses bilaterally radialis/ dorsalis pedis, no cyanosis, no edema Neuro: Awake alert oriented x3 Psych: Normal mood and affect G/U: No Castillo Skin: no rashes, warm and dry Lymphatic: no cervical or axillary lymphadenopathy Results & Data Vital Signs (Past 12 Hours) Vital Signs Temp Pulse Pulse Resp BP BP Pulse Ox 05/20/19 11:53 36.8 C 98 H 18 155/70 H 91 05/20/19 11:11 92 H 20 85 L 05/20/19 10:29 94 H 23 98 05/20/19 08:24 36.7 C 102 H 19 155/71 H 93 05/20/19 08:00 91 H 05/20/19 07:07 94 H 26 H 96 05/20/19 07:05 94 H 26 H 96 05/20/19 03:25 36.4 C L 95 H 19 128/55 L 93 05/20/19 03:05 87 16 97 05/20/19 09:59 05/20/19 09:59 PG Care Time/CCT Total # of Minutes Spent Total Time Spent with Patient: Total time spent is greater than 50% in coordination of care (as documented) at patient's floor/unit and/or counseling patient: Coding Level of Care Code 53675 Subseq Hosp Care Lvl 3 Diagnoses Hypercapnic respiratory failure J96.92 Bronchiectasis J47.9 Bronchiectasis type: uncomplicated Acute and chronic respiratory failure J96.20 GEOFFREY (mycobacterium avium-intracellulare) A31.0
[2019-05-20] MEDS: VENLAFAXINE HCL XR 37.5 MG CAPXR PO SCH (16:57)
[2019-05-20] MEDS: clonazePAM 0.5 MG TAB PO SCH (21:25)
[2019-05-20 22:02] LABS: Vitamin D 1,25 36 pg/mL (18-72); Vitamin D3,1,25 36 pg/mL
--- NOTE | 2019-05-20 23:09 | Hospitalist Progress Note ---
Date of Service May 20, 2019 Assessment & Plan (1) Acute hypercapnic respiratory failure: 74-year-old female was found to be in acute hypercapnic respiratory failure. Patient has improved with being on BIPAP for majority of the day and for the past 2 blood gases, her PC02 and pH has been acceptable. Patient appears to be improving and this appears to be her baseline. 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 Will continue to monitor her blood gases and will work on discharge plan which will include getting the ventialotr, chest vest [facility] at the [facility]. (2) Bronchiectasis: Significant work-up and long, long treatment for bronchiectasis NOS. Moved from [place] recently to be with family. She reports both infections and colonization by Pseudomonas as well as prior infection and treatment for GEOFFREY ( reports she was treated for 19 months). - Getting records from [place] doctors - Continue home inhaler - Minimize respiratory depressants (namely benzos) - DuoNebs standing & PRN, continue hypertonic saline nebulizers - Pulmonary following - Follow up cultures including AFB -> Growing Gram(-) bacilli. Likely Pseudomonas. Will follow speciation and sensitivities. - Continue Zosyn (3) Acute and chronic respiratory failure: Unclear cause at this point. Attempting to obtain records. - As above (4) Anxiety: Has understandably high anxiety about her breathing. - Continue standing home clonazepam 0.25mg PO BID - Continue home medicine venlafaxine 75 mg every morning and lunch, 35.5 mg with dinner - Stable today. (5) Depression: Stable. 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 - Hold prednisone & azathioprine per Dr. Barksdale given concern for acute infection. - Will get records tomorrow. - Consider inpatient consult vs. outpatient follow up depending on prior te sting. (7) Diabetes mellitus type 2 in nonobese: A1c was 6.1% this admission. - Needed sliding scale insulin while in steroids, but these were quickly stopped by pulmonology - Patient requested stopping AcuChecks. She had only needed 0-1 unit of insulin each check anyhow. Acuchecks and insulin held on 05/17. (8) Hypertension: BP higher today at 150/60. - Continue beta-ranjit (9) Hypothyroidism: TSH was 0.3 this admission, but no signs of hyperthyroidism. - Continue home levothyroxine 112 mcg (10) DVT prophylaxis: Lovenox 30 mg SQ daily (11) Acute metabolic encephalopathy: Likely multifactorial due to lack of sleep and hypercapnia and possible some delirum from being in the hospital. appears to have resolved Updated family. Subjective Family at bedside. Family states patient has been less confused today. Patient reports that she prefers to use the BIPAP mask only in the evenings. She only used it during the day for about 2 hours. But was mainly on oxy mask. Patient states that wearing a bipap mask 12/11 is not a way to live and would prefer to be comfort if that is the case. Review of Systems Review of Systems: All systems reviewed & are unremarkable except as noted in HPI & below Physical Exam Physical Exam: Constitutional: WD/WN, vitals as above Eyes: EOM intact bilaterally; no conjunctival abnormality ENMT: external ear and nose normal, oropharynx normal Neck: trachea midline, no thyromegaly normal visual inspection Respiratory: no respiratory distress Auscultation: + diminished lung sounds Cardiovascular: RRR, no murmur, no edema Gastrointestinal (Abdomen): Inspection/Auscultation: abdomen normal to inspection; abdomen not distended Musculoskeletal: no cyanosis or clubbing, extremities motor strength 5/5 Skin: no rashes, warm and dry Neurologic: moves all extremities and awake Psychiatric: Orientation: alert, oriented to person and cooperative Results & Data Vital Signs (Past 12 Hours) Vital Signs Temp Pulse Pulse Resp BP BP Pulse Ox 05/20/19 21:59 96 H 27 H 95 05/20/19 20:07 36.7 C 95 H 26 H 143/62 H 92 05/20/19 19:02 94 H 20 95 05/20/19 16:03 36.9 C 90 18 149/76 H 05/20/19 15:21 98 H 25 H 96 05/20/19 15:19 97 H 25 H 96 05/20/19 15:00 05/20/19 11:53 36.8 C 98 H 18 155/70 H 91 05/20/19 11:11 92 H 20 85 L Pulse Ox 05/20/19 21:59 05/20/19 20:07 05/20/19 19:02 05/20/19 16:03 05/20/19 15:21 05/20/19 15:19 05/20/19 15:00 96 05/20/19 11:53 05/20/19 11:11 PG Care Time/CCT Total # of Minutes Spent Total Time Spent with Patient: Total time spent is greater than 50% in coordination of care (as documented) at patient's floor/unit and/or counseling patient: Coding Level of Care Code 06025 Subseq Hosp Care Lvl 3 Diagnoses Acute hypercapnic respiratory failure J96.02 Bronchiectasis J47.9 Bronchiectasis type: uncomplicated Acute and chronic respiratory failure J96.20 Anxiety F41.9 Depression F32.9 Vasculitis I77.6 Diabetes mellitus type 2 in nonobese E11.9 Hypertension I10 Hypothyroidism E03.9 DVT prophylaxis Z29.9 Acute metabolic encephalopathy G93.41 Time Spent (min) 35 (1) Bronchiectasis Bronchiectasis type: uncomplicated Qualified Code(s): J47.9 - Bronchiectasis, uncomplicated
[2019-05-21] MEDS: ALBUT/IPRATROP 3MG/0.5MG NEB 3 ML VIAL INH SCH ×7 (00:06→23:27)
[2019-05-21] MEDS: PIPERACILLIN/TAZOBACTAM 3.375 GM in DEXTROSE 5% 100 ML IV SCH ×3 (06:13→21:25)
[2019-05-21] MEDS: LEVOTHYROXINE SODIUM 112 MCG TABLET PO SCH (06:14)
[2019-05-21] MEDS: SODIUM CHLOR 7% 4 ML NEB NEB SCH ×2 (07:02→19:29)
[2019-05-21] MEDS: ACETYLCYSTEINE 20% INHAL SOLN 4ML ***DISPENSED BY RESP. INH SCH ×2 (07:02→19:29)
[2019-05-21] MEDS: MULTIVITAMIN TAB PO SCH (08:21)
[2019-05-21] MEDS: ATENOLOL 25 MG TABLET PO SCH (08:21)
[2019-05-21] MEDS: VENLAFAXINE HCL XR 75 MG CAPXR PO SCH ×2 (08:22→12:16)
[2019-05-21] MEDS: PANTOprazole 40 MG TAB PO SCH (08:22)
[2019-05-21 09:31] LABS: HCO3 ABG 43 mmol/L (19-24); Oxygen Saturation ABG 91.7 % (90-95); PCO2 ABG 75 mmHg (35-46); PO2 ABG 66 mmHg (80-95); pH ABG 7.38 (7.35-7.45)
[2019-05-21 09:33] LABS: Allen Test Pos (Pos)
[2019-05-21 10:00] LABS: Calcium 9.1 mg/dl (8.5-10.1); Creatinine Clr Calc Pharmacy 66.7 ml/min; Est GFR (African American) 101.5; Est GFR (Non-African American) 87.6; Potassium 3.9 mmol/L (3.5-5.1)
--- NOTE | 2019-05-21 15:00 | Palliative Care Progress Note ---
Date of Service May 21, 2019 Assessment & Plan (1) Goals of care, counseling/discussion: Ms. Hooks is a 74 yo female with a past medical history significant for bronchiectasis, who presented to the ED on 05/15 from home with increased SOB that has occurred over a 48 hour period. Additional PMH includes: chronic respiratory failure and is oxygen dependent (2LNC continuous), anxiety, depression, diabetes mellitus type 2, GERD, and vasculitis. The patient and her have recently moved to [place] from [place] just over a month ago to be closer to their daughter, Elly. They are trying to establish care in the area and have been seeing pulmonology in [place] and have also had a consultation in [place]. The patient reports that her lifestyle is sedentary due to dyspnea with exertion that has been occurring for over one year. The patient is being treated with acute on chronic respiratory failure with duo nebs, antibiotics (Zosyn), Bipap as tolerated, and flutter valve treatment QID. -patient seen in room 217. She was sitting upright in her hospital bed with O2 via nasal cannula in place. Pt Matthew, and daughter Elly were at the bedside. -Patient now able to tolerate being off BiPAP during the day-tolerating nasal cannula at 6 L -Patient's current CODE STATUS is DNR/DNI -Patient's current goal is to improve her respiratory status so [facility] -Pulmonology recommending trilogy as well as percussion vest and mucolytics -Will continue to follow peripherally, please let us know if there are any acute changes. (2) Acute and chronic respiratory failure: (3) Anxiety: Subjective Patient seen and examined in room 217. Patient's and daughter at bedside. Patient is tolerating being off the BiPAP-now on BiPAP nightly and with daytime naps. Tolerating O2 at 6 L nasal cannula. Cultures show pansensitive Pseudomonas-plan is to continue Levaquin and then restart home inhaled tobramycin. Patient improving with 7% saline nebs along with Mucomyst. Review of Systems Review of Systems: Patient denies fever, chills, chest pain, increased shortness of breath, or abdominal pain Physical Exam Physical Exam: PE: Awake and alert, no acute distress, on 6 L O2 via nasal cannula HEENT: EOMI, hearing within normal limits Respirations: Unlabored, coarse breath sounds with inspiratory and expiratory wheezes bilaterally CV: Regular rate Abdomen: Not distended Extremities: Full range of motion Neuro: Alert and oriented x4 Results & Data Vital Signs (Past 12 Hours) Vital Signs Temp Pulse Pulse Resp BP Pulse Ox 05/21/19 11:15 88 18 96 05/21/19 11:09 98.1 F 86 20 147/68 H 96 05/21/19 10:45 95 H 05/21/19 07:24 97.9 F 99 H 20 138/68 99 05/21/19 07:05 99 H 18 99 05/21/19 03:28 94 H 18 96 05/21/19 02:59 97.9 F 96 H 18 136/64 94 PG Care Time/CCT Total # of Minutes Spent Total Time Spent with Patient: Total time spent 35 minutes with greater than 50% of the time spent at bedside discussing plan of care with patient and family Coding Level of Care Code 52594 Subseq Hosp Care Lvl 3 Diagnoses Goals of care, counseling/discussion Z71.89 Acute and chronic respiratory failure J96.20 Anxiety F41.9 Time Spent (min) 35
--- NOTE | 2019-05-21 17:07 | Pulmonology Progress Note ---
Date of Service May 21, 2019 Assessment & Plan (1) Hypercapnic respiratory failure: -- Acute on chronic hypercapnic hypoxic respiratory failure ABG from today shows 7.3 7/79/101/97 and this is on 7 L nasal cannula. Continue with BiPAP as tolerated Continue with mucoid clearance as tolerated. Patient discussing discharged to a intermediate facility for BiPAP support Recommend to keep O2 saturation between 88 to 92% Compliance with BiPAP is very important for the patient along with chest vest and mucolytic therapy. Sputum culture is growing Pseudomonas aeruginosa which is pansensitive. Could transition Zosyn to levofloxacin p.o for 2 more days and then she can go back to her inhaled tobramycin dose nebs - 27 days on/27 days off for chronic suppression of Pseudomonas. Patient will benefit from pulmonary rehab. Social work is already been consulted for trilogy and chest vest. Document signed today Due to chronic hypercapnic respiratory failure consequent to COPD/bronchiectasis, patient now requires a noninvasive home ventilator. Bilevel therapy with and without a rate would be ineffective as patient requires a volume targeted mode. Ventilation is required to decrease work of breathing and improve pulmonary status. Interruption of ventilator support would lead to decline of health status. NIMV settings should be AVAPS-AE; Breath rate: auto; Inspiratory time:auto; Sigh: off; Tidal Volume: 350-450, PS min: 4-10 PS max: 12-20; EPAP min: 6-10; EPAP max: 10-16; AVAPS rate: 14 during sleep and as needed No further interventions or pulmonary perspective. Will sign off. Recall if needed. 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 No acute distress. Patient is having bouts of confusion on and off but her PCO2 is 75 with pH of 7.38. I do not think hypercapnia is the reason for her confusion I think she is being delirious because of being in the hospital. Does not complain of chest pain, no nausea vomiting. Uses BiPAP on and off. Review of Systems Review of Systems: All systems reviewed & are unremarkable except as noted in HPI & below Physical Exam Physical Exam: Constitutional: No acute distress HEENT: EOMI, PERRLA Respiratory system: Decreased air entry bilaterally, positive rhonchi bilater ally, positive crackles bilateral, no wheeze CVS: S1-S2 positive, no murmurs or gallops, accentuated P2 Abdomen: Soft, nontender, nondistended, positive bowel sounds x4 Extremities: +2 pulses bilaterally radialis/ dorsalis pedis, no cyanosis, no edema Neuro: Awake alert oriented x3 Psych: Normal mood and affect G/U: No Castillo Skin: no rashes, warm and dry Lymphatic: no cervical or axillary lymphadenopathy Results & Data ([facility]) Vital Signs (Past 12 Hours) Vital Signs Temp Pulse Pulse Resp BP BP Pulse Ox 05/21/19 15:19 88 16 96 05/21/19 15:02 36.3 C L 83 18 130/64 94 05/21/19 11:15 88 18 96 05/21/19 11:09 36.7 C 86 20 147/68 H 96 05/21/19 10:45 95 H 05/21/19 07:24 36.6 C 99 H 20 138/68 99 05/21/19 07:05 99 H 18 99 05/20/19 09:59 05/21/19 09:16 PG Care Time/CCT Total # of Minutes Spent Total Time Spent with Patient: Total time spent is greater than 50% in coordination of care (as documented) at patient's floor/unit and/or counseling patient: Coding Level of Care Code 82008 Subseq Hosp Care Lvl 3 Diagnoses Hypercapnic respiratory failure J96.92 Bronchiectasis J47.9 Bronchiectasis type: uncomplicated Acute and chronic respiratory failure J96.20 GEOFFREY (mycobacterium avium-intracellulare) A31.0
[2019-05-21] MEDS: VENLAFAXINE HCL XR 37.5 MG CAPXR PO SCH (17:17)
[2019-05-21] MEDS ORDERED: PIPERACILL/TAZOBAC CONSULT ACTIVE PRN (17:28)
[2019-05-21] MEDS: clonazePAM 0.5 MG TAB PO SCH (22:19)
--- NOTE | 2019-05-21 22:58 | Hospitalist Progress Note ---
Date of Service May 21, 2019 Assessment & Plan (1) Acute hypercapnic respiratory failure: 74-year-old female was found to be in acute hypercapnic respiratory failure. Patient has improved with being on BIPAP for majority of the day and for the past 3 blood gases, her PC02 and pH has been acceptable. Patient appears to be improving which is suprising with how sick she was earlier in the week. 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 Will continue to monitor her blood gases and will work on discharge plan which will include getting the ventilator, chest vest for her at the [facility]. Discharge will hopefully be ready for tomorrow as it may be difficult to discharge over the weekend. (2) Bronchiectasis: Significant work-up and long, long treatment for bronchiectasis NOS. Moved from [place] recently to be with family. She reports both infections and colonization by Pseudomonas as well as prior infection and treatment for GEOFFREY (reports she was treated for 19 months). - Getting records from [place] doctors - Continue home inhaler - Minimize respiratory depressants (namely benzos) - DuoNebs standing & PRN, continue hypertonic saline nebulizers - Pulmonary following - Follow up cultures including AFB -> Growing Gram(-) bacilli. Likely Pseudomonas. Will follow speciation and sensitivities. - Continue Zosyn (3) Acute and chronic respiratory failure: Unclear cause at this point. Attempting to obtain records. - As above (4) Anxiety: Has understandably high anxiety about her breathing. - Continue standing home clonazepam 0.25mg PO BID - Continue home medicine venlafaxine 75 mg every morning and lunch, 35.5 mg with dinner - Stable today. (5) Depression: Stable. 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 - Hold prednisone & azathioprine per Dr. Barksdale given concern for acute infection. - Will get records tomorrow. - Consider inpatient consult vs. outpatient follow up depending on prior testing. (7) Diabetes mellitus type 2 in nonobese: A1c was 6.1% this admission. - Needed sliding scale insulin while in steroids, but these were quickly stopped by pulmonology - Patient requested stopping AcuChecks. She had only needed 0-1 unit of insulin each check anyhow. Acuchecks and insulin held on 05/17. (8) Hypertension: BP higher today is controlled. - Continue beta-ranjit (9) Hypothyroidism: TSH was 0.3 this admission, but no signs of hyperthyroidism. - Continue home levothyroxine 112 mcg (10) DVT prophylaxis: Lovenox 30 mg SQ daily (11) Acute metabolic encephalopathy: Likely multifactorial due to lack of sleep and hypercapnia and possible some delirum from being in the hospital. appears to have resolved Updated family. Subjective 74 o female reports feeling well. She has no new complaints. She is tolerating the bipap in the evening. Review of Systems Review of Systems: All systems reviewed & are unremarkable except as noted in HPI & below Physical Exam Physical Exam: Constitutional: WD/WN, vitals as above Eyes: EOM intact bilaterally; no conjunctival abnormality ENMT: external ear and nose normal, oropharynx normal Neck: trachea midline, no thyromegaly normal visual inspection Respiratory: no respiratory distress Auscultation: + diminished lung sounds Cardiovascular: RRR, no murmur, no edema Gastrointestinal (Abdomen): Inspection/Auscultation: abdomen normal to inspection; abdomen not distended Musculoskeletal: no cyanosis or clubbing, extremities motor strength 5/5 Skin: no rashes, warm and dry Neurologic: moves all extremities and awake Psychiatric: Orientation: alert, oriented to person and cooperative Results & Data ([facility]) Vital Signs (Past 12 Hours) Vital Signs Temp Pulse Pulse Resp BP BP Pulse Ox 05/21/19 19:30 90 18 93 05/21/19 19:07 36.7 C 96 H 20 133/63 94 05/21/19 16:00 84 05/21/19 15:19 88 16 96 05/21/19 15:02 36.3 C L 83 18 130/64 94 05/21/19 11:15 88 18 96 05/21/19 11:09 36.7 C 86 20 147/68 H 96 PG Care Time/CCT Total # of Minutes Spent Total Time Spent with Patient: Total time spent is greater than 50% in coordination of care (as documented) at patient's floor/unit and/or counseling patient: Coding Level of Care Code 98682 Subseq Hosp Care Lvl 2 Diagnoses Acute hypercapnic respiratory failure J96.02 Bronchiectasis J47.9 Bronchiectasis type: uncomplicated Acute and chronic respiratory failure J96.20 Anxiety F41.9 Depression F32.9 Vasculitis I77.6 Diabetes mellitus type 2 in nonobese E11.9 Hypertension I10 Hypothyroidism E03.9 DVT prophylaxis Z29.9 Acute metabolic encephalopathy G93.41 Time Spent (min) 25 (1) Bronchiectasis Bronchiectasis type: uncomplicated Qualified Code(s): J47.9 - Bronchiectasis, uncomplicated
[2019-05-22] MEDS: ALBUT/IPRATROP 3MG/0.5MG NEB 3 ML VIAL INH SCH ×6 (03:13→22:31)
[2019-05-22] MEDS: LEVOTHYROXINE SODIUM 112 MCG TABLET PO SCH (05:54)
[2019-05-22] MEDS: PIPERACILLIN/TAZOBACTAM 3.375 GM in DEXTROSE 5% 100 ML IV SCH ×3 (05:55→21:54)
[2019-05-22] MEDS: SODIUM CHLOR 7% 4 ML NEB NEB SCH ×2 (06:48→19:36)
[2019-05-22] MEDS: ACETYLCYSTEINE 20% INHAL SOLN 4ML ***DISPENSED BY RESP. INH SCH ×2 (06:48→19:36)
[2019-05-22] MEDS: ATENOLOL 25 MG TABLET PO SCH (09:54)
[2019-05-22] MEDS: VENLAFAXINE HCL XR 75 MG CAPXR PO SCH ×2 (09:54→12:09)
[2019-05-22] MEDS: PANTOprazole 40 MG TAB PO SCH (09:54)
[2019-05-22] MEDS: MULTIVITAMIN TAB PO SCH (09:55)
[2019-05-22 10:38] LABS: Base Excess ABG 13.4 mEq/L (-9-1.8); HCO3 ABG 41 mmol/L (19-24); Oxygen Saturation ABG 91.3 % (90-95); PCO2 ABG 68 mmHg (35-46); PO2 ABG 66 mmHg (80-95)
[2019-05-22 10:44] LABS: Allen Test Pos (Pos)
[2019-05-22] MEDS: VENLAFAXINE HCL XR 37.5 MG CAPXR PO SCH (16:44)
--- NOTE | 2019-05-22 17:27 | Palliative Care Progress Note ---
Date of Service May 22, 2019 Assessment & Plan (1) Goals of care, counseling/discussion: Ms. Hooks is a 74 yo female with a past medical history significant for bronchiectasis, who presented to the ED on 05/15 from home with increased SOB that has occurred over a 48 hour period. Additional PMH includes: chronic respiratory failure and is oxygen dependent (2LNC continuous), anxiety, depression, diabetes mellitus type 2, GERD, and vasculitis. The patient and her have recently moved to [place] from [place] just over a month ago to be closer to their daughter, Elly. They are trying to establish care in the area and have been seeing pulmonology in [place] and have also had a consultation in [place]. The patient reports that her lifestyle is sedentary due to dyspnea with exertion that has been occurring for over one year. The patient is being treated with acute on chronic respiratory failure with duo nebs, antibiotics (Zosyn), Bipap as tolerated, and flutter valve treatment QID. -patient seen in room 458. She was sitting upright in her hospital bed with O2 via nasal cannula in place. No family at bedside. -Patient now able to tolerate being off BiPAP during the day-tolerating nasal cannula at 3 L -Patient's current CODE STATUS is DNR/DNI -Patient's current goal is to improve her respiratory status so [facility] -Pulmonology recommending trilogy as well as percussion vest and mucolytics -Will continue to follow peripherally, please let us know if there are any acute changes. (2) Acute and chronic respiratory failure: (3) Anxiety: Subjective Pt seen and examined, no family at bedside. Pt reported that she needs to go on BiPAP this afternoon and stated she did not do well overnight with BiPAP Review of Systems Review of Systems: Pt denies fever, chills, CP , increased SOB, or abd pain Physical Exam Physical Exam: PE: NAD on O2 via NC - now down to 3L HEENT: EOMI, hearing WNL Resp: unlabored, coarse wet rhonchi and wheezes bilaterally - unchanged CV: RR Abd: soft, NT Neuro: A&O Results & Data Vital Signs (Past 12 Hours) Vital Signs Temp Pulse Pulse Resp BP BP Pulse Ox 05/22/19 15:32 97.7 F 92 H 138/71 88 L 05/22/19 15:15 92 H 18 88 L 05/22/19 14:12 90 23 93 05/22/19 11:12 104 H 19 91 05/22/19 07:19 97.9 F 92 H 22 133/71 92 05/22/19 06:48 96 H 20 90 05/22/19 06:47 22 92 05/22/19 06:31 82 26 H 93 05/22/19 05:57 84 22 90 PG Care Time/CCT Total # of Minutes Spent Total Time Spent with Patient: Total time spent is greater than 50% in coordination of care (as documented) at patient's floor/unit and/or counseling patient: Coding Level of Care Code 07303 Subseq Hosp Care Lvl 2 Diagnoses Goals of care, counseling/discussion Z71.89 Acute and chronic respiratory failure J96.20 Anxiety F41.9 Time Spent (min) 25
[2019-05-22] MEDS: clonazePAM 0.5 MG TAB PO SCH (20:29)
--- NOTE | 2019-05-22 23:49 | Hospitalist Progress Note ---
Date of Service May 22, 2019 Assessment & Plan (1) Acute hypercapnic respiratory failure: 74-year-old female was found to be in acute hypercapnic respiratory failure. Patient has improved with being on BIPAP for majority of the day and for the past 3 blood gases, her PC02 and pH has been acceptable. Patient appears to be improving which is suprising with how sick she was earlier in the week. Her system consultant prognosis appears poor though given her advanced lung disease. Will continue to monitor her blood gases and will work on discharge plan which will include getting the ventilator, chest vest for her at the [facility]. Patient will likely be here over the the weekend. Will stop antibiotics tomorrow. Patient will then be on tobramycin. (2) Bronchiectasis: Significant work-up and long, long treatment for bronchiectasis NOS. Moved from [place] recently to be with family. She reports both infections and colonization by Pseudomonas as well as prior infection and treatment for GEOFFREY (reports she was treated for 19 months). - Getting records from [place] doctors - Continue home inhaler - Minimize respiratory depressants (namely benzos) - DuoNebs standing & PRN, continue hypertonic saline nebulizers - Pulmonary following - Follow up cultures including AFB -> Growing Gram(-) bacilli. Likely Pseudomonas. Will follow speciation and sensitivities. - Continue Zosyn (3) Acute and chronic respiratory failure: Unclear cause at this point. Attempting to obtain records. - As above (4) Anxiety: Has understandably high anxiety about her breathing. - Continue standing home clonazepam 0.25mg PO BID - Continue home medicine venlafaxine 75 mg every morning and lunch, 35.5 mg with dinner - Stable today. (5) Depression: Stable. 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 - Hold prednisone & azathioprine per Dr. Barksdale given concern for acute infection. - Will get records tomorrow. - Consider inpatient consult vs. outpatient follow up depending on prior testing. (7) Diabetes mellitus type 2 in nonobese: A1c was 6.1% this admission. - Needed sliding scale insulin while in steroids, but these were quickly stopped by pulmonology - Patient requested stopping AcuChecks. She had only needed 0-1 unit of insulin each check anyhow. Acuchecks and insulin held on 05/17. (8) Hypertension: BP higher today is controlled. - Continue beta-ranjit (9) Hypothyroidism: TSH was 0.3 this admission, but no signs of hyperthyroidism. - Continue home levothyroxine 112 mcg (10) DVT prophylaxis: Lovenox 30 mg SQ daily (11) Acute metabolic encephalopathy: Likely multifactorial due to lack of sleep and hypercapnia and possible some delirum from being in the hospital. appears to have resolved Subjective 74 yo female reports feeling better. She states she has felt somewhat anxious and is concerned about her medications: such as venlafaxine. Patient denies any symptoms. She states she is compliant with the bipap. Review of Systems Review of Systems: All systems reviewed & are unremarkable except as noted in HPI & below Physical Exam Physical Exam: Constitutional: WD/WN, vitals as above Eyes: EOM intact bilaterally; no conjunctival abnormality ENMT: external ear and nose normal, oropharynx normal Neck: trachea midline, no thyromegaly normal visual inspection Respiratory: no respiratory distress Auscultation: + diminished lung sounds Cardiovascular: RRR, no murmur, no edema Gastrointestinal (Abdomen): Inspection/Auscultation: abdomen normal to inspection; abdomen not distended Musculoskeletal: no cyanosis or clubbing, extremities motor strength 5/5 Skin: no rashes, warm and dry Neurologic: moves all extremities and awake Psychiatric: Orientation: alert, oriented to person and cooperative Results & Data ([facility]) Vital Signs (Past 12 Hours) Vital Signs Temp Pulse Pulse Resp BP BP Pulse Ox 05/22/19 22:46 92 H 20 96 05/22/19 22:30 36.4 C L 90 20 142/69 H 90 05/22/19 21:00 92 H 25 H 96 05/22/19 19:41 93 H 18 96 05/22/19 15:32 36.5 C 92 H 138/71 88 L 05/22/19 15:15 92 H 18 88 L 05/22/19 14:12 90 23 93 PG Care Time/CCT Total # of Minutes Spent Total Time Spent with Patient: Total time spent is greater than 50% in coordination of care (as documented) at patient's floor/unit and/or counseling patient: Coding Level of Care Code 26257 Subseq Hosp Care Lvl 2 Diagnoses Acute hypercapnic respiratory failure J96.02 Bronchiectasis J47.9 Bronchiectasis type: uncomplicated Acute and chronic respiratory failure J96.20 Anxiety F41.9 Depression F32.9 Vasculitis I77.6 Diabetes mellitus type 2 in nonobese E11.9 Hypertension I10 Hypothyroidism E03.9 DVT prophylaxis Z29.9 Acute metabolic encephalopathy G93.41 Time Spent (min) 25 (1) Bronchiectasis Bronchiectasis type: uncomplicated Qualified Code(s): J47.9 - Bronchiectasis, uncomplicated
[2019-05-23] MEDS: ALBUT/IPRATROP 3MG/0.5MG NEB 3 ML VIAL INH SCH ×6 (03:23→22:58)
[2019-05-23] MEDS: LEVOTHYROXINE SODIUM 112 MCG TABLET PO SCH (06:16)
[2019-05-23] MEDS: PIPERACILLIN/TAZOBACTAM 3.375 GM in DEXTROSE 5% 100 ML IV SCH ×3 (06:18→21:48)
[2019-05-23] MEDS: ACETYLCYSTEINE 20% INHAL SOLN 4ML ***DISPENSED BY RESP. INH SCH ×2 (06:48→18:47)
[2019-05-23] MEDS: SODIUM CHLOR 7% 4 ML NEB NEB SCH ×2 (06:49→18:48)
[2019-05-23 06:55] LABS: Creatinine Clr Calc Pharmacy 60.8 ml/min; Est GFR (African American) 98.5
[2019-05-23] MEDS: ATENOLOL 25 MG TABLET PO SCH (08:53)
[2019-05-23] MEDS: MULTIVITAMIN TAB PO SCH (08:53)
[2019-05-23] MEDS: PANTOprazole 40 MG TAB PO SCH (08:53)
[2019-05-23] MEDS: VENLAFAXINE HCL XR 75 MG CAPXR PO SCH ×2 (08:54→13:45)
[2019-05-23] MEDS: VENLAFAXINE HCL XR 37.5 MG CAPXR PO SCH (17:24)
[2019-05-23] MEDS: clonazePAM 0.5 MG TAB PO SCH (22:45)
--- NOTE | 2019-05-23 23:03 | Hospitalist Progress Note ---
Date of Service May 23, 2019 Assessment & Plan (1) Acute hypercapnic respiratory failure: 74-year-old female was found to be in acute hypercapnic respiratory failure. Patient has improved with being on BIPAP for majority of the day and for the past 3 blood gases, her PC02 and pH has been acceptable. Patient appears to be improving which is suprising with how sick she was earlier in the week. 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 Her blood gas the day prior was better. will hold off testing today and repeat in AM. Patient will likely be here over the the weekend. Family did not bring tobramycin. Will continue zosyn until tobramycin arrives which will likely be on 05/24 (2) Bronchiectasis: Significant work-up and long, long treatment for bronchiectasis NOS. Moved from [place] recently to be with family. She reports both infections and colonization by Pseudomonas as well as prior infection and treatment for GEOFFREY (reports she was treated for 19 months). - Continue home inhaler - Minimize respiratory depressants (namely benzos) - DuoNebs standing & PRN, continue hypertonic saline nebulizers - Pulmonary following - Follow up cultures including AFB -> Growing Gram(-) bacilli. Likely Pseudomonas. Will follow speciation and sensitivities. - Continue Zosyn -will transition to tobramycin once family brings medication (3) Acute and chronic respiratory failure: Unclear cause at this point. Attempting to obtain records. - As above (4) Anxiety: Has understandably high anxiety about her breathing. - Continue standing home clonazepam 0.25mg PO was cut back to once a day, however she could receive a second dose if needed. This past past though she mainly has received one dose. -Goal is to try to taper this. Last evening she did not receive clonazepam. - Continue home medicine venlafaxine 75 mg every morning and lunch, 35.5 mg with dinner - She appears to be having some anxiety, this may just be the tapering of her clonazepam this week. However she may benefit from a second agent to be added to her anxiety regimen. will monitor (5) Depression: Stable. 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 - Hold prednisone & azathioprine per Dr. Barksdale given concern for acute infection. - Will get records tomorrow. - Consider inpatient consult vs. outpatient follow up depending on prior testing. (7) Diabetes mellitus type 2 in nonobese: A1c was 6.1% this admission. - Needed sliding scale insulin while in steroids, but these were quickly stopped by pulmonology - Patient requested stopping AcuChecks. She had only needed 0-1 unit of insulin each check anyhow. Acuchecks and insulin held on 05/17. (8) Hypertension: BP higher today is controlled. - Continue beta-ranjit (9) Hypothyroidism: TSH was 0.3 this admission, but no signs of hyperthyroidism. - Continue home levothyroxine 112 mcg (10) DVT prophylaxis: Lovenox 30 mg SQ daily (11) Acute metabolic encephalopathy: Likely multifactorial due to lack of sleep and hypercapnia and possible some delirum from being in the hospital. appears to have resolved Subjective Patient reports feeling well. Her main concern continues to be the anxiety. Review of Systems Review of Systems: All systems reviewed & are unremarkable except as noted in HPI & below Physical Exam Physical Exam: Constitutional: WD/WN, vitals as above Eyes: EOM intact bilaterally; no conjunctival abnormality ENMT: external ear and nose normal, oropharynx normal Neck: trachea midline, no thyromegaly normal visual inspection Respiratory: no respiratory distress Auscultation: + diminished lung sounds Cardiovascular: RRR, no murmur, no edema Gastrointestinal (Abdomen): Inspection/Auscultation: abdomen normal to inspection; abdomen not distended Musculoskeletal: no cyanosis or clubbing, extremities motor strength 5/5 Skin: no rashes, warm and dry Neurologic: moves all extremities and awake Psychiatric: Orientation: alert, oriented to person and cooperative Results & Data ([facility]) Vital Signs (Past 12 Hours) Vital Signs Temp Pulse Pulse Resp BP Pulse Ox 05/23/19 23:00 74 21 94 05/23/19 22:57 36.2 C L 82 18 123/72 93 05/23/19 18:52 88 20 96 05/23/19 15:44 88 20 91 05/23/19 15:30 36.6 C 86 20 151/75 H 91 05/23/19 13:51 86 23 98 05/23/19 11:18 62 18 91 PG Care Time/CCT Total # of Minutes Spent Total Time Spent with Patient: Total time spent is greater than 50% in coordination of care (as documented) at patient's floor/unit and/or counseling patient: Coding Level of Care Code 90174 Subseq Hosp Care Lvl 2 Diagnoses Acute hypercapnic respiratory failure J96.02 Bronchiectasis J47.9 Bronchiectasis type: uncomplicated Acute and chronic respiratory failure J96.20 Anxiety F41.9 Depression F32.9 Vasculitis I77.6 Diabetes mellitus type 2 in nonobese E11.9 Hypertension I10 Hypothyroidism E03.9 DVT prophylaxis Z29.9 Acute metabolic encephalopathy G93.41 Time Spent (min) 25 (1) Bronchiectasis Bronchiectasis type: uncomplicated Qualified Code(s): J47.9 - Bronchiectasis, uncomplicated
[2019-05-24] MEDS: ALBUT/IPRATROP 3MG/0.5MG NEB 3 ML VIAL INH SCH ×6 (02:00→22:15)
[2019-05-24] MEDS: PIPERACILLIN/TAZOBACTAM 3.375 GM in DEXTROSE 5% 100 ML IV SCH ×2 (05:38→14:04)
[2019-05-24] MEDS: LEVOTHYROXINE SODIUM 112 MCG TABLET PO SCH (05:39)
[2019-05-24 06:15] LABS: Base Excess ABG 9.9 mEq/L (-9-1.8); HCO3 ABG 37 mmol/L (19-24); Oxygen Saturation ABG 86.5 % (90-95); PCO2 ABG 60 mmHg (35-46); PO2 ABG 55 mmHg (80-95)
[2019-05-24 06:16] LABS: Hemoglobin 10.3 g/dL (12.0-16.0); Mean Corpuscular Hemoglobin 33.3 pg (25-34); Mean Corpuscular Hgb Conc 31.2 g/dL (32-36); Mean Corpuscular Volume 106.8 fL (80-100); Mean Platelet Volume 9.2 fL (7.4-10.4); Platelet Count 258 K/uL (130-400); RDW Coefficient of Variation 16.1 % (11.5-14.5); RDW Standard Deviation 62.3 fL (36.4-46.3); Red Blood Count 3.09 M/uL (4.2-5.4); White Blood Count 7.42 K/uL (4.8-10.8)
[2019-05-24 06:23] LABS: Allen Test Pos (Pos)
[2019-05-24 06:49] LABS: BUN Creatinine Ratio 14.3 (10-20); Calcium 9.2 mg/dl (8.5-10.1); Creatinine Clr Calc Pharmacy 61.7 ml/min; Est GFR (Non-African American) 85.4; Potassium 3.9 mmol/L (3.5-5.1)
[2019-05-24 06:50] LABS: Phosphorus 3.3 mg/dl (2.5-4.9)
[2019-05-24] MEDS: SODIUM CHLOR 7% 4 ML NEB NEB SCH ×2 (07:01→19:26)
[2019-05-24] MEDS: ACETYLCYSTEINE 20% INHAL SOLN 4ML ***DISPENSED BY RESP. INH SCH ×3 (07:01→19:28)
[2019-05-24] MEDS: PANTOprazole 40 MG TAB PO SCH (08:47)
[2019-05-24] MEDS: ATENOLOL 25 MG TABLET PO SCH (08:47)
[2019-05-24] MEDS: VENLAFAXINE HCL XR 75 MG CAPXR PO SCH ×2 (08:48→11:30)
[2019-05-24] MEDS: MULTIVITAMIN TAB PO SCH (08:48)
[2019-05-24] MEDS: VENLAFAXINE HCL XR 37.5 MG CAPXR PO SCH (17:23)
[2019-05-24] MEDS: clonazePAM 0.5 MG TAB PO SCH (20:44)
[2019-05-24] MEDS: [UNRECOGNIZED DRUG - OTHER] INH SCH (20:45)
--- NOTE | 2019-05-24 23:55 | Hospitalist Progress Note ---
Date of Service May 24, 2019 Assessment & Plan (1) Acute hypercapnic respiratory failure: 74-year-old female was found to be in acute hypercapnic respiratory failure. Patient has improved with being on BIPAP for majority of the day and for the past 3 blood gases, her PC02 and pH has been acceptable. Patient appears to be improving which is suprising with how sick she was earlier in the week. 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 Her blood gas looks good. Patient will likely be discharged on Saturday or Saturday if nursing facility has her equipment set up. Family brought in tobramycin on 05/24. Will stop zosyn. Patient will be on regular dose, doubt lower dose would protect her from a pseudomonas infection (2) Bronchiectasis: Significant work-up and long, long treatment for bronchiectasis NOS. Moved from [place] recently to be with family. She reports both infections and colonization by Pseudomonas as well as prior infection and treatment for GEOFFREY (reports she was treated for 19 months). - Continue home inhaler - Minimize respiratory depressants (namely benzos) - DuElsabs standing & PRN, continue hypertonic saline nebulizers - Pulmonary following - Follow up cultures including AFB -> Growing Gram(-) bacilli. Likely Pseudomonas. Will follow speciation and sensitivities. -will transition to tobramycin today (05/24) (3) Acute and chronic respiratory failure: Unclear cause at this point. Attempting to obtain records. - As above (4) Anxiety: Has understandably high anxiety about her breathing. - Continue standing home clonazepam 0.25mg PO was cut back to once a day, however she could receive a second dose if needed. This past past though she mainly has received one dose. -Goal is to try to taper this. Last evening she did not receive clonazepam. - Continue home medicine venlafaxine 75 mg every morning and lunch, 35.5 mg with dinner - She appears to be having some anxiety, this may just be the tapering of her clonazepam this week. However she may benefit from a second agent to be added to her anxiety regimen. will start buspar 5 mg PO TID. If no improvemnet on saturday, patient will like to see a psychiatrist. (5) Depression: Stable. 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 - Hold prednisone & azathioprine per Dr. Barksdale given concern for acute infection. - Consider outpatient follow up depending on prior testing. (7) Diabetes mellitus type 2 in nonobese: A1c was 6.1% this admission. - Needed sliding scale insulin while in steroids, but these were quickly stopped by pulmonology - Patient requested stopping AcuChecks. She had only needed 0-1 unit of insulin each check anyhow. Acuchecks and insulin held on 05/17. (8) Hypertension: BP higher today is controlled. - Continue beta-ranjit (9) Hypothyroidism: TSH was 0.3 this admission, but no signs of hyperthyroidism. - Continue home levothyroxine 112 mcg (10) DVT prophylaxis: Lovenox 30 mg SQ daily (11) Acute metabolic encephalopathy: Likely multifactorial due to lack of sleep and hypercapnia and possible some delirum from being in the hospital. appears to have resolved Subjective Had extensive conversation with patient regarding taking her tobramycin. Patient reports being concnerned about ototoxicity as she has lost hearing from amikacin and had been taking a lower dose (2 capsules of tobramycin) at home. Patient also states that she wants to discuss about her anxiety with a psychiatrist. Review of Systems Review of Systems: All systems reviewed & are unremarkable except as noted in HPI & below Physical Exam Physical Exam: Constitutional: WD/WN, vitals as above Eyes: EOM intact bilaterally; no conjunctival abnormality ENMT: external ear and nose normal, oropharynx normal Neck: trachea midline, no thyromegaly normal visual inspection Respiratory: no respiratory distress Auscultation: + diminished lung sounds Cardiovascular: RRR, no murmur, no edema Gastrointestinal (Abdomen): Inspection/Auscultation: abdomen normal to inspection; abdomen not distended Musculoskeletal: no cyanosis or clubbing, extremities motor strength 5/5 Skin: no rashes, warm and dry Neurologic: moves all extremities and awake Psychiatric: Orientation: alert, oriented to person and cooperative Results & Data ([facility]) Vital Signs (Past 12 Hours) Vital Signs Temp Pulse Pulse Pulse Resp BP BP 05/24/19 23:37 36.7 C 85 20 127/63 05/24/19 22:16 87 22 05/24/19 21:00 87 21 05/24/19 19:29 89 20 05/24/19 15:01 36.3 C L 84 20 124/71 05/24/19 14:56 88 18 Pulse Ox 05/24/19 23:37 92 05/24/19 22:16 94 05/24/19 21:00 94 05/24/19 19:29 95 05/24/19 15:01 93 05/24/19 14:56 94 PG Care Time/CCT Total # of Minutes Spent Total Time Spent with Patient: Total time spent is greater than 50% in coordination of care (as documented) at patient's floor/unit and/or counseling patient: Coding Level of Care Code 04958 Subseq Hosp Care Lvl 3 Diagnoses Acute hypercapnic respiratory failure J96.02 Bronchiectasis J47.9 Bronchiectasis type: uncomplicated Acute and chronic respiratory failure J96.20 Anxiety F41.9 Depression F32.9 Vasculitis I77.6 Diabetes mellitus type 2 in nonobese E11.9 Hypertension I10 Hypothyroidism E03.9 DVT prophylaxis Z29.9 Acute metabolic encephalopathy G93.41 Time Spent (min) 45 (1) Bronchiectasis Bronchiectasis type: uncomplicated Qualified Code(s): J47.9 - Bronchiectasis, uncomplicated
[2019-05-25] MEDS: ALBUT/IPRATROP 3MG/0.5MG NEB 3 ML VIAL INH SCH ×6 (03:00→22:49)
[2019-05-25] MEDS: LEVOTHYROXINE SODIUM 112 MCG TABLET PO SCH (05:24)
[2019-05-25 06:48] LABS: Creatinine Clr Calc Pharmacy 61.7 ml/min; Est GFR (Non-African American) 85.4
[2019-05-25] MEDS: SODIUM CHLOR 7% 4 ML NEB NEB SCH ×2 (07:12→19:07)
[2019-05-25] MEDS: ACETYLCYSTEINE 20% INHAL SOLN 4ML ***DISPENSED BY RESP. INH SCH ×2 (07:12→19:06)
[2019-05-25] MEDS: ATENOLOL 25 MG TABLET PO SCH (08:45)
[2019-05-25] MEDS: MULTIVITAMIN TAB PO SCH (08:45)
[2019-05-25] MEDS: PANTOprazole 40 MG TAB PO SCH (08:45)
[2019-05-25] MEDS: VENLAFAXINE HCL XR 75 MG CAPXR PO SCH ×2 (08:45→11:45)
[2019-05-25] MEDS: [UNRECOGNIZED DRUG - OTHER] INH SCH ×3 (08:46→21:26)
--- NOTE | 2019-05-25 14:12 | Palliative Care Progress Note ---
Date of Service May 25, 2019 Assessment & Plan (1) Goals of care, counseling/discussion: Ms. Hooks is a 74 yo female with a past medical history significant for bronchiectasis, who presented to the ED on 05/15 from home with increased SOB that has occurred over a 48 hour period. Additional PMH includes: chronic respiratory failure and is oxygen dependent (2LNC continuous), anxiety, depression, diabetes mellitus type 2, GERD, and vasculitis. The patient and her have recently moved to [place] from [place] just over a month ago to be closer to their daughter, Elly. They are trying to establish care in the area and have been seeing pulmonology in [place] and have also had a consultation in [place]. The patient reports that her lifestyle is sedentary due to dyspnea with exertion that has been occurring for over one year. The patient is being treated with acute on chronic respiratory failure with duo nebs, antibiotics (Zosyn), Bipap as tolerated, and flutter valve treatment QID. -patient seen in room 458. She was sitting upright in her hospital bed with O2 via nasal cannula in place. and daughter at bedside. -Patient now able to tolerate being off BiPAP during the day-tolerating nasal cannula at 3 L -Patient's current CODE STATUS is DNR/DNI -Patient's current goal is to improve her respiratory status so she can [facility]/OT -Pulmonology recommending trilogy as well as percussion vest and mucolytics -Will continue to follow peripherally, please let us know if there are any acute changes. (2) Acute and chronic respiratory failure: (3) Anxiety: Subjective Pt seen and examined , pt's and daughter at bedside, ROSA Lisa also present, during part of the visit, from attending team Pt doing well, using BiPAP QHS and daytime naps No new issues Review of Systems Review of Systems: pt denies pain, fever, chills, increased SOB or abd pain Physical Exam Physical Exam: PE: NAD HEENT: EOMI, hearing WNL Resp: coarse, wet BS bilaterally - unchanged CV: RR ABD: not distended Ext: FROM, generalized weakness Neuro: A&O, no focal deficits Results & Data Vital Signs (Past 12 Hours) Vital Signs Temp Pulse Resp BP Pulse Ox 05/25/19 11:05 91 H 18 93 05/25/19 07:37 97.9 F 101 H 16 133/62 94 05/25/19 07:14 97 H 18 94 05/25/19 03:01 88 18 90 PG Care Time/CCT Total # of Minutes Spent Total Time Spent with Patient: Total time spent 25 min with greater than 50% of the time spent at bedside assessing pt's current status and discussing POC Coding Level of Care Code 64288 Subseq Hosp Care Lvl 2 Diagnoses Goals of care, counseling/discussion Z71.89 Acute and chronic respiratory failure J96.20 Anxiety F41.9 Time Spent (min) 25
[2019-05-25] MEDS: VENLAFAXINE HCL XR 37.5 MG CAPXR PO SCH (17:45)
--- NOTE | 2019-05-25 20:57 | Hospitalist Progress Note ---
Date of Service May 25, 2019 Assessment & Plan (1) Acute hypercapnic respiratory failure: - 74-year-old female was found to be in acute hypercapnic respiratory failure. Patient has benefited from BiPAP usage which is shown improvement on multiple blood gases - Plan is to utilize trilogy and chest vest -due to her chronic hypercapnic respiratory failure/COPD/bronchiectasis she is required noninvasive home ventilator system as she has exhibited significant CO2 retention when not utili zing -Patient was initially treated with Zosyn therapy during admission; family has brought in her inhaled tobramycin and will continue this for chronic suppression of Pseudomonas -Continue albuterol, sodium chloride nebs, and Mucomyst -Continue supplemental oxygen (2) Bronchiectasis: - Significant work-up and long, long treatment for bronchiectasis NOS. Moved from [place] recently to be with family. She reports both infections and colonization by Pseudomonas as well as prior infection and treatment for GEOFFREY (reports she was treated for 19 months). - Continue home inhaler - Minimize respiratory depressants (namely benzos) - DuoNebs standing & PRN, continue hypertonic saline nebulizers -Sputum culture confirms Pseudomonas -which remains pansensitive - Pulmonary followed -currently signed off at this time -appreciated input and assistance with care (3) Anxiety: - Has understandably high anxiety about her breathing -of course underlying lung condition is not assisting with her anxiety -Patient does not like the way she feels with benzodiazepines. She states she was on Ativan for approximately a year and was converted to clonazepam over the past 4 months. --She is trying to not take any additional clonazepam and we are currently working on titrating BuSpar as an alternative -Continue Effexor-patient feels this medication may not be that beneficial for her and may benefit from a different medication. This is possible however with titration of anxiety medication it may be best to not change too many things at once. As well as an appropriate taper should occur with this as well -She was started on BuSpar 5 mg 3 times daily and will monitor for effectiveness over the day. Discussed this medication with psychiatry and states we could consider titration of 2.5 mg every couple days to get a desired effect. -Discussed this with patient today and agrees with current plan. She ultimately would benefit from outpatient psychiatry/therapy establishment as she is new to the area. (4) Depression: Stable. 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 - Hold prednisone & azathioprine per Dr. Barksdale given concern for acute infection -likely can be resumed as an outpatient and would benefit from outpatient follow-up and management (6) Diabetes mellitus type 2 in nonobese: - A1c was 6.1% this admission. - Needed sliding scale insulin while on steroids, but these were quickly stopped by pulmonology - Patient requested stopping AcuChecks. She had only needed 0-1 unit of insulin each check anyhow -Can monitor when labs are drawn; can resume her metformin on discharge. Daughter believes she is on 500 mg daily (7) Hypertension: -Stable -Continue atenolol 25 mg daily (8) Hypothyroidism: - TSH was 0.3 this admission, but no signs of hyperthyroidism. - Continue home levothyroxine 112 mcg (9) Acute metabolic encephalopathy: -Resolved; likely multifactorial -poor sleep, hypercapnia, possibly delirium (10) DVT prophylaxis: SCDS Disposition: Awaiting equipment arrival at the [facility]. When all equipment is received patient can be discharge at that time Subjective Reports feeling well compared to earlier in admission. She states ongoing anxiety which is been an issue for quite some time. She does not like the way benzodiazepines make her feel and understands the risks associated giving her underlying lung issues. She was initiated on BuSpar on 2 but did require an additional dose of clonazepam last night. Discussed awaiting time for this medication to take effect and possible need for upward titration. She would also like to get outpatient establishment with psychiatry/counseling as she is new to the area. She verbalizes no new complaints at this time. We are waiting on equipment arrival for her to go to rehab Review of Systems Constitutional: no fever, no chills and no anorexia Ear, Nose, Mouth, Throat: + dry mouth; no nasal congestion Respiratory: + cough and + dyspnea on exertion; no dyspnea Cardiovascular: no chest pain, no palpitations, no lightheadedness and no edema Gastrointestinal: no abdominal pain, no nausea, no vomiting, no constipation and no diarrhea/loose stools Genitourinary: no dysuria Musculoskeletal: no body aches Integumentary: no rash Psychiatric: + anxiety Physical Exam 2 Constitutional: + thin and + frail appearing Eyes: + anicteric sclerae ENMT: Ears: no hearing impairment Neck: trachea midline Respiratory: normal respiratory effort Coarse breath sounds largely noted to right midlung Cardiovascular: RRR, no murmur, no edema Gastrointestinal (Abdomen): Inspection/Auscultation: normal bowel sounds Percussion/Palpation: abdomen soft; abdomen nontender Musculoskeletal: Head/Neck/Chest: normocephalic and head atraumatic Skin: no rashes, warm and dry Neurologic: moves all extremities Psychiatric: A+Ox3, euthymic affect Results & Data ([facility]) Vital Signs (Past 12 Hours) Vital Signs Temp Pulse Pulse Resp BP Pulse Ox 05/25/19 19:10 94 H 16 95 05/25/19 15:29 94 H 18 91 05/25/19 15:08 36.5 C 88 22 133/68 93 05/25/19 11:05 91 H 18 93 PG Care Time/CCT Total # of Minutes Spent Total Time Spent with Patient: Total time spent is greater than 50% in coordination of care (as documented) at patient's floor/unit and/or counseling patient: Coding Level of Care Code 57043 Subseq Hosp Care Lvl 3 Diagnoses Acute hypercapnic respiratory failure J96.02 Bronchiectasis J47.9 Bronchiectasis type: uncomplicated Anxiety F41.9 Depression F32.9 Vasculitis I77.6 Diabetes mellitus type 2 in nonobese E11.9 Hypertension I10 Hypothyroidism E03.9 Acute metabolic encephalopathy G93.41 DVT prophylaxis Z29.9 (1) Bronchiectasis Bronchiectasis type: uncomplicated Qualified Code(s): J47.9 - Bronchiectasis, uncomplicated
[2019-05-25] MEDS: clonazePAM 0.5 MG TAB PO SCH ×2 (21:21→21:26)
[2019-05-26] MEDS: ALBUT/IPRATROP 3MG/0.5MG NEB 3 ML VIAL INH SCH ×6 (03:00→22:42)
[2019-05-26] MEDS: LEVOTHYROXINE SODIUM 112 MCG TABLET PO SCH (06:11)
[2019-05-26] MEDS: SODIUM CHLOR 7% 4 ML NEB NEB SCH ×2 (06:49→19:08)
[2019-05-26] MEDS: ACETYLCYSTEINE 20% INHAL SOLN 4ML ***DISPENSED BY RESP. INH SCH ×2 (06:49→19:19)
[2019-05-26] MEDS: MULTIVITAMIN TAB PO SCH (07:57)
[2019-05-26] MEDS: VENLAFAXINE HCL XR 75 MG CAPXR PO SCH ×2 (07:57→11:25)
[2019-05-26] MEDS: [UNRECOGNIZED DRUG - OTHER] INH SCH ×2 (07:58→20:35)
[2019-05-26] MEDS: ATENOLOL 25 MG TABLET PO SCH (08:01)
[2019-05-26] MEDS: PANTOprazole 40 MG TAB PO SCH (08:01)
[2019-05-26] MEDS: predniSONE 5 MG TAB PO SCH (10:24)
[2019-05-26] MEDS: BUSPIRONE HCL 7.5 MG TAB PO SCH ×2 (13:35→20:34)
--- NOTE | 2019-05-26 14:14 | Hospitalist Progress Note ---
Date of Service May 26, 2019 Assessment & Plan (1) Acute hypercapnic respiratory failure: - 74-year-old female was found to be in acute hypercapnic respiratory failure. Patient has benefited from BiPAP usage which is shown improvement on multiple blood gases - Plan is to utilize trilogy and chest vest -due to her chronic hypercapnic respiratory failure/COPD/bronchiectasis she requires noninvasive home ventilator system as she has exhibited significant CO2 retention when not utilizing -Patient was initially treated with Zosyn therapy during admission; family has brought in her inhaled tobramycin and will continue this for chronic suppression of Pseudomonas -Continue albuterol, sodium chloride nebs, and Mucomyst -Continue supplemental oxygen (2) Bronchiectasis: - Significant work-up and long, long treatment for bronchiectasis NOS. M lee from [place] recently to be with family. She reports both infections and colonization by Pseudomonas as well as prior infection and treatment for GEOFFREY (reports she was treated for 19 months). - Continue home inhaler - Minimize respiratory depressants (namely benzos) - DuoNebs standing & PRN, continue hypertonic saline nebulizers -Sputum culture confirms Pseudomonas -which remains pansensitive - Pulmonary followed -currently signed off at this time -appreciated input and assistance with care (3) Anxiety: - Has understandably high anxiety about her breathing -of course underlying lung condition is not assisting with her anxiety -Patient does not like the way she feels with benzodiazepines. She states she was on Ativan for approximately a year and was converted to clonazepam over the past 4 months. --She is trying to not take any additional clonazepam and we are currently working on titrating BuSpar as an alternative -Continue Effexor-patient feels this medication may not be that beneficial for her and may benefit from a different medication. This is possible however with titration of anxiety medication it may be best to not change too many things at once. As well as an appropriate taper should occur with this as well -She was started on BuSpar 5 mg 3 times daily and will monitor for effectiveness over the day. Discussed this medication with psychiatry and states we could consider titration of 2.5 mg every couple days to get a desired effect. Therefore will move to 7.5 mg TID and allows to monitor for 2-3 days and consider titration from there as necessary and can be monitored at the [facility] -Discussed this with patient today and agrees with current plan. She ultimately would benefit from outpatient psychiatry/therapy establishment as she is new to the area. (4) Depression: Stable. 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 - Will resume prednisone & continue to hold azathioprine (can be resumed on D/C) held per Dr. Barksdale given concern for acute infection - would benefit from outpatient follow-up and management (6) Diabetes mellitus type 2 in nonobese: - A1c was 6.1% this admission. - Needed sliding scale insulin while on steroids, but these were quickly stopped by pulmonology -- May increase slightly with resumption of her baseline Prednisone 5 mg - Patient requested stopping AcuChecks. She had only needed 0-1 unit of insulin each check anyhow -Can monitor when labs are drawn; can resume her metformin on discharge. Daughter believes she is on 500 mg daily (7) Hypertension: -Stable -Continue atenolol 25 mg daily (8) Hypothyroidism: - TSH was 0.3 this admission, but no signs of hyperthyroidism. - Continue home levothyroxine 112 mcg (9) Acute metabolic encephalopathy: -Resolved; likely multifactorial -poor sleep, hypercapnia, possibly delirium (10) DVT prophylaxis: SCDS Disposition: Trilegy and Vest ordered and [facility] staff trained; plan for D/C tomorrow Subjective Reports overall feeling well. Some increased anxiety overnight related to the bipap mask. She states she is trying to use it as much as she can but the mask is bothersome. Discussed increasing her Buspar to see if this will help. She verbalizes no new complaints at this time Review of Systems Constitutional: no fever and no chills Ear, Nose, Mouth, Throat: + dry mouth; no nasal congestion Respiratory: + cough and + dyspnea on exertion; no dyspnea Cardiovascular: no chest pain and no lightheadedness Gastrointestinal: no abdominal pain, no nausea and no vomiting Genitourinary: no dysuria Musculoskeletal: no body aches Integumentary: no rash Psychiatric: + anxiety Physical Exam Constitutional: + thin and + frail appearing Eyes: + anicteric sclerae ENMT: Ears: no hearing impairment Neck: trachea midline Respiratory: normal respiratory effort course breath sounds b/l with diminished breath sounds at bases b/l Cardiovascular: RRR, no murmur, no edema Gastrointestinal (Abdomen): Inspection/Auscultation: normal bowel sounds Percussion/Palpation: abdomen soft; abdomen nontender Musculoskeletal: Head/Neck/Chest: normocephalic and head atraumatic Skin: no rashes, warm and dry Neurologic: moves all extremities Psychiatric: A+Ox3, euthymic affect Results & Data ([facility]) Vital Signs (Past 12 Hours) Vital Signs Temp Pulse Pulse Resp BP Pulse Ox 05/26/19 11:06 87 18 90 05/26/19 07:29 36.5 C 97 H 18 144/68 H 93 05/26/19 06:52 91 H 18 94 05/26/19 03:01 87 18 92 PG Care Time/CCT Total # of Minutes Spent Total Time Spent with Patient: Total time spent is greater than 50% in coord ination of care (as documented) at patient's floor/unit and/or counseling patient: Coding Level of Care Code 30239 Subseq Hosp Care Lvl 3 Diagnoses Acute hypercapnic respiratory failure J96.02 Bronchiectasis J47.9 Bronchiectasis type: uncomplicated Anxiety F41.9 Depression F32.9 Vasculitis I77.6 Diabetes mellitus type 2 in nonobese E11.9 Hypertension I10 Hypothyroidism E03.9 Acute metabolic encephalopathy G93.41 DVT prophylaxis Z29.9 (1) Bronchiectasis Bronchiectasis type: uncomplicated Qualified Code(s): J47.9 - Bronchiectasis, uncomplicated
[2019-05-26] MEDS: VENLAFAXINE HCL XR 37.5 MG CAPXR PO SCH (17:22)
[2019-05-26] MEDS: clonazePAM 0.5 MG TAB PO SCH (20:34)
[2019-05-27] MEDS: ALBUT/IPRATROP 3MG/0.5MG NEB 3 ML VIAL INH SCH ×4 (02:29→15:21)
[2019-05-27] MEDS: LEVOTHYROXINE SODIUM 112 MCG TABLET PO SCH (05:44)
[2019-05-27] MEDS: SODIUM CHLOR 7% 4 ML NEB NEB SCH (07:07)
[2019-05-27] MEDS: ACETYLCYSTEINE 20% INHAL SOLN 4ML ***DISPENSED BY RESP. INH SCH (07:07)
[2019-05-27] MEDS: ATENOLOL 25 MG TABLET PO SCH (08:03)
[2019-05-27] MEDS: BUSPIRONE HCL 7.5 MG TAB PO SCH ×2 (08:03→13:59)
[2019-05-27] MEDS: MULTIVITAMIN TAB PO SCH (08:03)
[2019-05-27] MEDS: [UNRECOGNIZED DRUG - OTHER] INH SCH (08:03)
[2019-05-27] MEDS: VENLAFAXINE HCL XR 75 MG CAPXR PO SCH ×2 (08:04→11:25)
[2019-05-27] MEDS: predniSONE 5 MG TAB PO SCH (08:04)
[2019-05-27] MEDS: PANTOprazole 40 MG TAB PO SCH (08:04)
[2019-05-27 09:01] LABS: Hematocrit (blood only) 33.3 % (37-47); Hemoglobin 10.8 g/dL (12.0-16.0); Mean Corpuscular Hemoglobin 34.2 pg (25-34); Mean Corpuscular Hgb Conc 32.4 g/dL (32-36); Mean Corpuscular Volume 105.4 fL (80-100); Mean Platelet Volume 8.6 fL (7.4-10.4); Platelet Count 359 K/uL (130-400); RDW Coefficient of Variation 15.6 % (11.5-14.5); Red Blood Count 3.16 M/uL (4.2-5.4); White Blood Count 6.62 K/uL (4.8-10.8)
[2019-05-27 09:37] LABS: BUN Creatinine Ratio 11.9 (10-20); Calcium 9.5 mg/dl (8.5-10.1); Creatinine Clr Calc Pharmacy 62.6 ml/min; Est GFR (African American) 99.5; Est GFR (Non-African American) 85.8; Potassium 3.8 mmol/L (3.5-5.1)
--- NOTE | 2019-05-27 16:06 | Discharge Summary ---
Date of Service May 27, 2019 Admission HPI Per Admitting Provider The patient is a 74 years old female with past medical history of chronic respiratory failure on oxygen, anxiety and depression, diabetes mellitus type 2, GERD, vasculitis, bronchiectasis, who was brought to the emergency room today with a complaint of worsening shortness of breath since yesterday. Patient and her moved from [place] 6 weeks ago to join her daughter in [email or web address]. 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 Patient reports that she uses oxygen 24/7 approximately 2 to 3 L and she has sedentary life because any movement around increases her oxygen demand and makes her feel sick. This issue has been ongoing for more than a year. Patient reports that her dyspnea is getting worse and that is why she presented to the hospital. Patient denies fever, chills, chest pain, abdominal pain, frequency, urgency, syncope or near syncope, hemoptysis. Patient is good historian. She stated that most likely she will be DNR/DNI but she has to speak to her children. She reports that her cough is productive. Sputum is yellowish-green. EKG normal sinus rhythm with LVH. Labs are reviewed and shows sodium of 134, potassium 4.9, chloride 93, carbon dioxide 40, anion gap 2, BUN 15, creatinine 0.64, GFR 86.7, calcium 8.7, magnesium 2.3, AST 6, ALT 9, alkaline phosphatase 98, troponin 0.015, BNP 1493, total protein 8.4, albumin 3.1, globulin 5.3, procalcitonin pending. Influenza A&B negative. WBCs 10.32, RBCs 3.35, hemoglobin 11.2, hematocrit 37.4, platelets 250, absolute neutrophil 8.19 left shift. Chest x-ray significant for severe chronic lung disease there is a density in the right upper ex, left mid lung, left lung base makes a superimposed infiltrate/pneumonia difficult to exclude. The decision was made to admit patient to PCU on telemetry for possible pneumonia, acute on chronic respiratory failure and bronchiectasis. Admission Exam Per Admitting Provider Constitutional: WD/WN, vitals as above well developed, + ill appearing, + thin and + cachectic Eyes: PERRL, conjunctivae normal, anicteric sclerae ENMT: external ear and nose normal, oropharynx normal Neck: trachea midline, no thyromegaly Respiratory: + respiratory distress, + labored breathing, + uses accessory muscles, + hyperresonance to percussion, able to speak in complete sentences and + prolonged expiratory phase Auscultation: + crackles, + rales, + rhonchi, + wheezes and + pleural rub present Cardiovascular: RRR, no murmur, no edema Gastrointestinal (Abdomen): normal bowel sounds, soft, nontender, no hepatosplenomegaly Musculoskeletal: no cyanosis or clubbing, extremities motor strength 5/5 Skin: + purpura Neurologic: patellar DTR's 2+ bilat, sensation intact Psychiatric: A+Ox3, euthymic affect Lymphatic: no cervical or axillary lymphadenopathy Principal Diagnosis Acute on chronic respiratory failure, Bronchiectasis Discharge Exam General: Resting comfortably HEENT: NC/AT; PERRLA with EOMI; [place] conjunctiva, MMM. No erythema of posterior pharynx Neck: Supple and nontender Cardiac: RRR Lungs: on 2L via NC; diminished in lower lung bases. Abdomen: Bowel normoactive X 4; Nontender to palpation Extremities: Warm. No edema present Neuro: No focal weakness Skin: No rash Discharge Data Allergies Allergy/AdvReac Type Severity Reaction Status Date / Time levofloxacin Allergy Unknown Unverified 05/15/19 12:47 Sulfa (Sulfonamide Allergy Unknown Unverified 05/15/19 12:47 Antibiotics) Consultations 05/15/19 12:54 ED Decision to Admit Stat 05/15/19 15:49 Consult Pulmonology Routine 05/17/19 16:40 Consult Palliative Care Routine 05/18/19 08:36 Consult Health Information Management Routine 05/18/19 19:07 Consult Case Management - Discharge Planning Routine Ordered Studies 05/15/19 16:51 CT chest HighResolution wo con Routine Hospital Course (1) Acute hypercapnic respiratory failure: Acute hypercapnic resp failure at admission. Improved with BiPAP use overnight during this admission. Recommend Trilogy use following discharge qhs and chest percussion therapy TID. Will f/u with pulm in outpatient clinic. Continued albuterol, sodium chloride nebs and mucomyst. Maintained well on 2L via NC at discharge. (2) Bronchiectasis: Significant work-up and long, long treatment for bronchiectasis NOS. Moved from [place] recently to be with family. She reported both infections and colonization by Pseudomonas as well as prior infection and treatment for GEOFFREY (reports she was treated for 19 months). Inhaled meds as noted above. Sputum culture +Pseudomonas. Pulmonary was consulted, appreciate input. (3) Anxiety: Has understandably high anxiety about her breathing - of course underlying lung condition is not assisting with her anxiety. Continued Effexor as prescribed. Added Buspar -- increased to 7.5 mg TID. She ultimately would benefit from outpatient psychiatry/therapy establishment as she is new to the area. 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 Resumed prednisone. Can resume azathioprine at discharge. (6) Diabetes mellitus type 2 in nonobese: A1C was 6.1% this admission. Resume Metformin as outpatient. (7) Hypertension: Continued atenolol 25 mg daily (8) Hypothyroidism: TSH was 0.3 this admission, but no signs of hyperthyroidism. Continued home levothyroxine 112 mcg (9) Acute metabolic encephalopathy: Resolved; likely multifactorial -poor sleep, hypercapnia, possibly delirium (10) DVT prophylaxis: SCDS Discharged to the [facility] on 05/[facility]. Total Time Total Time Spent Total Time Spent (In Minutes): >30 minutes Total Time Includes: Examination of the Patient, Discharge Planning, Medication Reconciliation, Communication With Other Providers and Other Discharge Plan Discharge Items Patient Disposition: Transfer Halfway Fac Reason For Visit: PNA,ACUTE ON CREONIC RESPIRATORY FAILURE Discharge Diagnosis: Acute on chronic respiratory failure, bronchiectasis, anxiety Condition on Discharge: Fair Goals: You have been hospitalized for an acute medical problem. During your stay at [facility] [address] [facility], we have made an effort to correct the problem that brought you to the hospital while keeping you as comfortable as possible. Medications were used to bring your condition under control and your discharge instructions will include directions for any medications you should take after leaving the hospital. Please make sure you see your Primary Care Provider as part of your follow up plan. Activity: As commented below Exercise/Sports: Gradually increase as tolerated Non-emergency contact: Primary Care Provider and Riveter Helper Call non-emergency contact if: you have any medication questions, your symptoms worsen and you have a fever Follow-up/Referrals: Patric Nath MD [Primary Care Provider] - Anibal Barksdale MD [Physician] - 06/01/19 9:45 am (Please, follow up at [facility] Pulmonology Office with Dr. Barksdale on SaturdayJune 01 at 10:00 am (arrive 9:45 am). *The office is located in [address] [facility], next to this hospital. If you need to change this appointment, call the office at [phone].) Diet: Carb Consistent or DM2 Addtl Attending Provider Instructions: 1. Acute on chronic respiratory failure in setting of bronchiectasis * Please continue 2-3 liters via nasal cannula during the day and Trilogy ventilator in the evening. * Please continue chest percussion therapy three times daily. * Please continue home medications as prescribed. * Patient will need to follow up with teletypesetter operator as scheduled on 06/01/19. 2. Anxiety * Please continue Effexor as prescribed. * Please take Buspar 7.5 mg three times daily. * Consider outpatient psychiatry evaluation. 3. Vasculitis * Continue Prednisone 5 mg daily and Azathioprine as prescribed. Pending Studies at Discharge: No Stand-Alone Forms: My [facility] Skilled Items Patient informed of condition?: Yes DNR: Yes Discharge Level of Care: Skilled Communicable Disease: No Discharge Prognosis: Improving Lines: None Urinary Catheter: No Medications and DC Order Prescriptions: New buspirone 7.5 mg Tablet 7.5 mg PO TID 30 Days Qty: 90 RF: 0 Continued venlafaxine 37.5 mg capsule,extended release 24hr 75 mg PO PM RF: 0 venlafaxine 37.5 mg capsule,extended release 24hr 37.5 mg PO PM RF: 0 venlafaxine 37.5 mg capsule,extended release 24hr 75 mg PO QAM RF: 0 atenolol 25 mg Tablet 25 mg PO QAM RF: 0 azathioprine 50 mg tablet 50 mg PO QAM RF: 0 prednisone 2.5 mg Tablet 5 mg PO QAM RF: 0 esomeprazole magnesium [Nexium] 40 mg Capsule,Delayed Release(Dr/Ec) 40 mg PO QAM RF: 0 levothyroxine [Synthroid] 112 mcg Tablet 112 mcg PO QAM RF: 0 ipratropium-albuterol 0.5 mg-3 mg(2.5 mg base)/3 mL Solution For Nebulization 3 ml INHALATION QID RF: 0 sodium chloride 0.9 % Solution For Nebulization 4 ml INHALATION BID RF: 0 Dionicio Podhaler 28 mg Capsule, W/Inhalation Device 28 mg INHALATION UD RF: 0 Changed clonazepam 0.5 mg tablet 0.25 mg PO HS Qty: 15 RF: 0 metformin 500 mg PO PM Qty: 0 RF: 0 Discharge Orders: Discharge Order (Routine); Ordered 05/27/19 Ordered By: Soledad Dean Admission Data Admit Date/Time: 05/15/19 14:25 Attending Provider: Bobby Bell Admit Provider: Champ Floyd Primary Care Provider: Patric Nath Other Providers: Maximilian Dennis ; [facility] ; Champ Floyd ; Anibal Barksdale Other Interventions: Discharge Summary Assessment (RN) Last Done: 05/27/19 11:03 DC Date/Time DO NOT enter until pt leaves facility: 05/27/19 16:00 Supervising Physician Co-Signing Physician Notes Attending note: patient seen and examined with Soledad Dean PA-C. I agree with her discharge summary. I personally reviewed the labs and imaging findings. patient doing well, she is a little nervous about using the Trilogy, has a lot of questions otherwise she is doing well enough for discharge breathing well at rest, she does get some dyspnea on exertion and mild desaturations family at the bedside, they are in agreement with discharge, all questions answered - Acute hypercapnic respiratory failure treated with NIPPV, using BIPAP at night here in the hospital approved for Trilogy and arranged at the [facility] patient breathing well during the day - Bronchiectasis chronic cough, sputum culture with Pseudomonas will follow up with pulmonary in the clinic Coding Level of Care Code D/C Day Management >30 mins Diagnoses Acute hypercapnic respiratory failure J96.02 Bronchiectasis J47.9 Bronchiectasis type: uncomplicated Anxiety F41.9 Depression F32.9 Vasculitis I77.6 Diabetes mellitus type 2 in nonobese E11.9 Hypertension I10 Hypothyroidism E03.9 Acute metabolic encephalopathy G93.41 DVT prophylaxis Z29.9
== END 2019-05-27 16:00 | DRG 189 ==
LOC: ED 10:57 → 2S 14:25 → SUATTDRO 14:25 → 2S 15:10 → 4W 05-21 17:57

== ENCOUNTER 2019-06-14 07:37 | Inpatient (IN) ==
[2019-06-14] MEDS ORDERED: ALBUT/IPRATROP 3MG/0.5MG NEB 3 ML VIAL NEB ONE (08:07)
[2019-06-14 08:42] LABS: Basophils # (auto) 0.07 K/uL (0-0.2); Basophils % (auto) 0.7 %; Eosinophils # (auto) 0.14 K/uL (0-0.5); Eosinophils % (auto) 1.5 %; Hematocrit (blood only) 36.7 % (37-47); Hemoglobin 11.5 g/dL (12.0-16.0); Immature Granulocytes # (auto) 0.03 K/uL (0.00-0.02); Immature Granulocytes % (auto) 0.3 %; Lymphocytes # (auto) 2.27 K/uL (1.2-3.4); Lymphocytes % (auto) 23.6 %; Mean Corpuscular Hemoglobin 33.8 pg (25-34); Mean Corpuscular Hgb Conc 31.3 g/dL (32-36); Mean Corpuscular Volume 107.9 fL (80-100); Mean Platelet Volume 9.8 fL (7.4-10.4); Monocytes # (auto) 1.21 K/uL (0.11-0.59); Monocytes % (auto) 12.6 %; Neutrophils # (auto) 5.88 K/uL (1.4-6.5); Neutrophils % (auto) 61.3 %; Platelet Count 279 K/uL (130-400); RDW Coefficient of Variation 14.5 % (11.5-14.5); RDW Standard Deviation 57.1 fL (36.4-46.3)
[2019-06-14 08:56] LABS: Base Excess ABG 6.9 mEq/L (-9-1.8); HCO3 ABG 36 mmol/L (19-24); Oxygen Saturation ABG 97.9 % (90-95); PCO2 ABG 74 mmHg (35-46); PO2 ABG 116 mmHg (80-95)
[2019-06-14 08:57] LABS: Allen Test Pos (Pos)
[2019-06-14 08:57] LABS: INR 1.1 (0.9-1.1); Partial Thromboplastin Ratio 0.9; Partial Thromboplastin Time 24.1 Seconds (21.0-31.0); Prothrombin Time 10.8 Seconds (9.0-12.0)
--- NOTE | 2019-06-14 08:57 | XRay Report ---
XR chest 1V portable CLINICAL HISTORY: Chest Pain dyspnea COMPARISON STUDY: 05/15/2019 FINDINGS: Diffuse chronic interstitial change. This is considered stable compared to the prior study. Diaphragms are smooth. Right suprahilar parenchymal scarring considered unchanged. IMPRESSION: Stable diffuse bilateral parenchymal fibrotic/interstitial change. No evidence for super imposed infiltrate. ACT 112: Negative or not required by law. The above report was generated using voice recognition software. It may contain grammatical, syntax or spelling errors. Electronically signed by: Hardeep Huff M.D. 06/14/2019 8:56 AM
[2019-06-14 08:59] LABS: Alanine Aminotransferase 10 U/L (12-78); Albumin Level 3.2 gm/dl (3.4-5.0); Aspartate Aminotransferase 14 U/L (15-37); Blood Urea Nitrogen 13 mg/dl (7-18); Calcium 9.3 mg/dl (8.5-10.1); Carbon Dioxide 35 mmol/L (21-32); Chloride 94 mmol/L (98-107); Creatinine Clr Calc Pharmacy 56.6 ml/min; Est GFR (African American) 97.5; Est GFR (Non-African American) 84.2; Glucose 96 mg/dl (70-99); Lipase 56 U/L (73-393); Potassium 3.9 mmol/L (3.5-5.1); Sodium 135 mmol/L (136-145)
[2019-06-14 09:04] LABS: Albumin Globulin Ratio 0.6 (0.9-2); Alkaline Phosphatase 90 U/L (45-117); Bilirubin,Total 0.3 mg/dl (0.2-1); Creatine Kinase 41 U/L (26-192); Creatine Kinase MB 1.4 ng/ml (0.5-3.6); Globulin 5.2 gm/dl (2.5-4.0); Total Protein 8.4 gm/dl (6.4-8.2); Troponin I < 0.015 ng/ml (0-0.045)
[2019-06-14] MEDS ORDERED: methylPREDNISolone 125 MG/2 ML VIAL IV STA (09:12)
[2019-06-14 09:17] LABS: Influenza A virus by PCR Neg for Influ A (Neg); Influenza B virus by PCR Neg for Influ B (Neg)
--- NOTE | 2019-06-14 12:51 | Emergency Department Note ---
Entered by Sherley Carreno acting as a scribe for Jose Hernandez MD History of Present Illness General Chief complaint: Shortness of Breath/Dyspnea Stated complaint: sob/ams Time Seen by Provider: 06/14/19 07:45 Source: patient Mode of arrival: EMS History of Present Illness Onset (ago): day(s) 1 Location: head (weakness) Severity: similar to prior episodes Pain Consistency: + other (persistent) Quality: + other (weakness) Associated symptoms: + shortness of breath, + weakness and + other (visual hallucinations) Treatments prior to arrival: none The patient is a 74 year old female presenting to the Emergency Department via EMS complaining of persistent weakness starting 1 day ago. The patients family reports that the patient has been very weak for the past day. They state that the patient has been experiencing visual hallucinations. They explain that the patient is short of breath and is supposed to be using Bi-PAP at night but that the patient didnt receive her Bi-PAP last night and they do not know how many nights she hasnt received it as she resides at [facility] in [place]. They add that the patient has experienced these symptoms before as she came to the hospital 2 weeks ago for similar symptoms. The patients family reports that the patient took medications [employer] for her symptoms. Home Medications Home Medications Medication Instructions Recorded Confirmed Type Magic Mouth Wash 10 ml PO QID@08,13,17,06/14/19 06/14/19 History atenolol 25 mg PO DAILY@0800 06/14/19 06/14/19 History azathioprine 50 mg PO DAILY@0806/14/19 06/14/19 History buspirone 7.5 mg PO TID@0800,1300,199906/14/19 06/14/19 History clonazepam 0.25 mg PO HS PRN 06/14/19 06/14/19 History esomeprazole magnesium [Nexium] 40 mg PO DAILY@0800 06/14/19 06/14/19 History ipratropium-albuterol 3 ml INHALATION QID@08,11,16,20 06/14/19 06/14/19 History levothyroxine 112 mcg PO DAILY@0600 06/14/19 06/14/19 History melatonin 3 mg PO HS@199906/14/19 06/14/19 History metformin 500 mg PO QDD@1700 06/14/19 06/14/19 History ondansetron HCl [Zofran] 4 mg PO Q4H PRN 06/14/19 06/14/19 History prednisone 5 mg PO DAILY@0800 06/14/19 06/14/19 History tobramycin [Dionicio Podhaler] 4 cap INHALATION UD 06/14/19 06/14/19 History venlafaxine 37.5 mg PO QDD@1700 06/14/19 06/14/19 History venlafaxine 75 mg PO BID@0800,1300 06/14/19 06/14/19 History Allergies Allergy/AdvReac Type Severity Reaction Status Date / Time levofloxacin Allergy Unknown Unverified 06/14/19 08:12 Sulfa (Sulfonamide Allergy Unknown Unverified 06/14/19 08:12 Antibiotics) Past Med/Surg History Medical History Bronchiectasis Goals of care, counseling/discussion GEOFFREY (mycobacterium avium-intracellulare) Vasculitis Family History Other Family history non-contributory Social History Preferred Language: Mongolian Communication Ability: Effective Grocery Associate Required: No Beliefs That Will Affect Care: Rastafari Rastafari Beliefs: Catholic. Current Living Situation: Spouse Current Living Situation Comment: [place], [facility] Other Information That Helps Us Care for You: No Feels Safe at Home: Yes Safety Concerns: Feels Safe At This Time Smoking Status: Former smoker Tobacco Type: cigarettes ; packs per day: 1 ; S econd Hand Exposure: No ; Hx Alcohol Use: No Hx Substance Use: No Review of Systems See HPI for pertinent positives & negatives. and A total of 10 systems reviewed and were otherwise negative Physical Exam Vital Signs Vital Signs - 24 hr 06/14/19 07:41 06/14/19 07:49 06/14/19 08:00 Temperature 36.5 C Temperature Source Oral Pulse Rate 103 H 118 H 108 H Pulse Rate [Apical] Pulse Rate from SpO2 Sensor 103 H 104 H Pulse Rhythm Regular Pulse Strength Normal Respiratory Rate 30 H 22 26 H Respiratory Effort / Characteristics Non-Labored Respiratory Depth Normal Blood Pressure 168/97 H 168/97 H 152/89 H Blood Pressure Mean 134 120 110 Blood Pressure Position Sitting Pulse Oximetry 96 89 L 97 Oxygen Delivery Method Nasal Cannula Nasal Cannula Nasal Cannula Oxygen Flow Rate 4 2 4 Sepsis Recent Fever Within 48 Hours No Sepsis Action Taken by Nursing No Action Required 06/14/19 08:30 06/14/19 08:31 06/14/19 09:00 Temperature Temperature Source Pulse Rate 96 H 101 H Pulse Rate [Apical] 103 H Pulse Rate from SpO2 Sensor 96 H 100 H Pulse Rhythm Pulse Strength Respiratory Rate 33 H 18 41 H Respiratory Effort / Characteristics Non-Labored Spontaneous Respiratory Depth Blood Pressure 153/74 H 154/68 H Blood Pressure Mean 108 109 Blood Pressure Position Pulse Oximetry 97 95 99 Oxygen Delivery Method Aerosol Mask Nasal Cannula Aerosol Mask Oxygen Flow Rate 4 Sepsis Recent Fever Within 48 Hours Sepsis Action Taken by Nursing 06/14/19 09:30 06/14/19 10:00 06/14/19 10:30 Temperature Temperature Source Pulse Rate 105 H 105 H 116 H Pulse Rate [Apical] Pulse Rate from SpO2 Sensor 105 H 107 H 105 H Pulse Rhythm Pulse Strength Respiratory Rate 30 H 20 19 Respiratory Effort / Characteristics Respiratory Depth Blood Pressure 136/66 Blood Pressure Mean 98 Blood Pressure Position Pulse Oximetry 100 94 94 Oxygen Delivery Method Aerosol Mask Oxygen Flow Rate Sepsis Recent Fever Within 48 Hours Sepsis Action Taken by Nursing 06/14/19 11:00 06/14/19 11:30 06/14/19 11:40 Temperature Temperature Source Pulse Rate 102 H 110 H 111 H Pulse Rate [Apical] Pulse Rate from SpO2 Sensor 102 H 112 H 111 H Pulse Rhythm Pulse Strength Respiratory Rate 20 24 19 Respiratory Effort / Characteristics Respiratory Depth Blood Pressure 140/56 L Blood Pressure Mean 94 Blood Pressure Position Pulse Oximetry 92 90 91 Oxygen Delivery Method Oxygen Flow Rate Sepsis Recent Fever Within 48 Hours Sepsis Action Taken by Nursing 06/14/19 12:00 06/14/19 12:01 06/14/19 12:30 Temperature Temperature Source Pulse Rate 120 H 109 H 105 H Pulse Rate [Apical] Pulse Rate from SpO2 Sensor 108 H 107 H 108 H Pulse Rhythm Pulse Strength Respiratory Rate 20 37 H Respiratory Effort / Characteristics Respiratory Depth Blood Pressure 155/70 H 148/73 H Blood Pressure Mean 98 93 Blood Pressure Position Pulse Oximetry 93 93 91 Oxygen Delivery Method Oxygen Flow Rate Sepsis Recent Fever Within 48 Hours Sepsis Action Taken by Nursing 06/14/19 12:31 Temperature Temperature Source Pulse Rate 108 H Pulse Rate [Apical] Pulse Rate from SpO2 Sensor 108 H Pulse Rhythm Pulse Strength Respiratory Rate 23 Respiratory Effort / Characteristics Respiratory Depth Blood Pressure Blood Pressure Mean Blood Pressure Position Pulse Oximetry 90 Oxygen Delivery Method Oxygen Flow Rate Sepsis Recent Fever Within 48 Hours Sepsis Action Taken by Nursing GENERAL: Awake, alert, well-appearing, in no acute distress HENT: Normocephalic, atraumatic. Oropharynx unremarkable. EYES: Normal conjunctiva. Sclera non-icteric. NECK: Supple. No nuchal rigidity. FROM. No JVD. RESPIRATORY: Cackles at the bases of the lungs. CARDIAC: Regular rate, normal rhythm. Extremities warm and well perfused. Pulses equal. ABDOMEN: Soft, non-distended. No tenderness to palpation. No rebound or guarding. No masses. RECTAL: Deferred. MUSCULOSKELETAL: Chest examination reveals no tenderness. The back is symmetrical on inspection without obvious abnormality. There is no CVA tenderness to palpation. No joint edema. LOWER EXTREMITIES: Calves are equal size bilaterally and non-tender. No edema. No discoloration. NEURO: Normal sensorium. No sensory or motor deficits noted. SKIN: No rash or jaundice noted. Course Course 0748: The patient was evaluated in room C9, and a complete history and physical examination were performed. 0926: I discussed the patients case with Dr. Ray MURRAY hospitalist. He will evaluate the patient for further management. 0930: I updated the patient at this time. Administered Medications Discontinued Medications Albuterol (Duoneb) 12 ml NEB ONE ONE Stop: 06/14/19 08:08 Last Admin: 06/14/19 08:30 Dose: 12 ml Documented by: [id number] Methylprednisolone (Solumedrol) 60 mg IV NOW STA Stop: 06/14/19 09:13 Last Admin: 06/14/19 09:43 Dose: 60 mg Documented by: [id number] Critical Care Time I have personally spent greater than 30 minutes of critical care time in the direct management of this patient. This includes bedside care, interpretation of diagnostic studies, and testing, discussion with consultants, patient, and family members, and other required patient management activities. This 30 minutes is in excess of all separately billable procedures. Medical Decision Making Differential Diagnosis Differential diagnoses includes but is not limited to pneumonia, bronchitis, COPD/Asthma exacerbation, pneumothorax, pulmonary embolism, congestive heart failure, acute coronary syndrome. Medical Records Attestation: I reviewed the patient's medical records. Home Medications Current Medication List: was personally reviewed by me Laboratory Data Attestation: I reviewed the patient's lab results. Result diagrams: 06/14/19 08:26 06/14/19 08:26 Lab Results 06/14/19 06/14/19 06/14/19 Range/Units 08:26 08:26 08:26 WBC 9.60 (4.8-10.8) K/uL RBC 3.40 L (4.2-5.4) M/uL Hgb 11.5 L (12.0-16.0) g/dL Hct 36.7 L (37-47) % MCV 107.9 H (80-100) fL MCH 33.8 (25-34) pg MCHC 31.3 L (32-36) g/dL RDW Std Deviation 57.1 H (36.4-46.3) fL RDW Coeff of Taylor 14.5 (11.5-14.5) % Plt Count 279 (130-400) K/uL MPV 9.8 (7.4-10.4) fL Immature Gran % (Auto) 0.3 % Neut % (Auto) 61.3 % Lymph % (Auto) 23.6 % [place] % (Auto) 12.6 % Eos % (Auto) 1.5 % Baso % (Auto) 0.7 % Immature Gran # (Auto) 0.03 H (0.00-0.02) K/uL Neut # (Auto) 5.88 (1.4-6.5) K/uL Lymph # (Auto) 2.27 (1.2-3.4) K/uL [place] # (Auto) 1.21 H (0.11-0.59) K/uL Eos # (Auto) 0.14 (0-0.5) K/uL Baso # (Auto) 0.07 (0-0.2) K/uL PT 10.8 (9.0-12.0) Seconds INR 1.1 (0.9-1.1) APTT 24.1 (21.0-31.0) Seconds PTT Ratio 0.9 ABG pH (7.35-7.45) ABG pCO2 (35-46) mmHg ABG pO2 (80-95) mmHg ABG HCO3 (19-24) mmol/L ABG O2 Saturation (90-95) % ABG Base Excess (-9-1.8) mEq/L Rakesh Test (Pos) Barometric Pressure mm/Hg Oxygen Given Sodium 135 L (136-145) mmol/L Potassium 3.9 (3.5-5.1) mmol/L Chloride 94 L (98-107) mmol/L Carbon Dioxide 35 H (21-32) mmol/L Anion Gap 6.0 (3-11) BUN 13 (7-18) mg/dl Creatinine 0.70 (0.6-1.2) mg/dl Est Cr Clr Drug Dosing 56.6 ml/min Est GFR ( Amer) 97.5 Est GFR (Non-Af Amer) 84.2 BUN/Creatinine Ratio 18.0 (10-20) Glucose 96 (70-99) mg/dl Calcium 9.3 (8.5-10.1) mg/dl Total Bilirubin 0.3 (0.2-1) mg/dl AST 14 L (15-37) U/L ALT 10 L (12-78) U/L Alkaline Phosphatase 90 (45-117) U/L Total Creatine Kinase 41 (26-192) U/L CK-MB (CK-2) 1.4 (0.5-3.6) ng/ml CK/CKMB % Calc 3.4 H (0-3.0) Troponin I < 0.015 (0-0.045) ng/ml Total Protein 8.4 H (6.4-8.2) gm/dl Albumin 3.2 L (3.4-5.0) gm/dl Globulin 5.2 H (2.5-4.0) gm/dl Albumin/Globulin Ratio 0.6 L (0.9-2) Lipase 56 L (73-393) U/L Influenza Type A (PCR) (Neg) Influenza Type B (PCR) (Neg) 06/14/19 06/14/19 Range/Units 08:35 08:41 WBC (4.8-10.8) K/uL RBC (4.2-5.4) M/uL Hgb (12.0-16.0) g/dL Hct (37-47) % MCV (80-100) fL MCH (25-34) pg MCHC (32-36) g/dL RDW Std Deviation (36.4-46.3) fL RDW Coeff of Taylor (11.5-14.5) % Plt Count (130-400) K/uL MPV (7.4-10.4) fL Immature Gran % (Auto) % Neut % (Auto) % Lymph % (Auto) % [place] % (Auto) % Eos % (Auto) % Baso % (Auto) % Immature Gran # (Auto) (0.00-0.02) K/uL Neut # (Auto) (1.4-6.5) K/uL Lymph # (Auto) (1.2-3.4) K/uL [place] # (Auto) (0.11-0.59) K/uL Eos # (Auto) (0-0.5) K/uL Baso # (Auto) (0-0.2) K/uL PT (9.0-12.0) Seconds INR (0.9-1.1) APTT (21.0-31.0) Seconds PTT Ratio ABG pH 7.30 L (7.35-7.45) ABG pCO2 74 H (35-46) mmHg ABG pO2 116 H (80-95) mmHg ABG HCO3 36 H (19-24) mmol/L ABG O2 Saturation 97.9 H (90-95) % ABG Base Excess 6.9 H (-9-1.8) mEq/L Rakesh Test Pos (Pos) Barometric Pressure 736.3 mm/Hg Oxygen Given 8L Sodium (136-145) mmol/L Potassium (3.5-5.1) mmol/L Chloride (98-107) mmol/L Carbon Dioxide (21-32) mmol/L Anion Gap (3-11) BUN (7-18) mg/dl Creatinine (0.6-1.2) mg/dl Est Cr Clr Drug Dosing ml/min Est GFR ( Amer) Est GFR (Non-Af Amer) BUN/Creatinine Ratio (10-20) Glucose (70-99) mg/dl Calcium (8.5-10.1) mg/dl Total Bilirubin (0.2-1) mg/dl AST (15-37) U/L ALT (12-78) U/L Alkaline Phosphatase (45-117) U/L Total Creatine Kinase (26-192) U/L CK-MB (CK-2) (0.5-3.6) ng/ml CK/CKMB % Calc (0-3.0) Troponin I (0-0.045) ng/ml Total Protein (6.4-8.2) gm/dl Albumin (3.4-5.0) gm/dl Globulin (2.5-4.0) gm/dl Albumin/Globulin Ratio (0.9-2) Lipase (73-393) U/L Influenza Type A (PCR) Neg for Influ A (Neg) Influenza Type B (PCR) Neg for Influ B (Neg) Imaging Data Radiologist's Impression: Radiology results as stated below per my review and the radiologist's interpretation: XR chest 1V portable CLINICAL HISTORY: Chest Pain dyspnea COMPARISON STUDY: 05/15/2019 FINDINGS: Diffuse chronic interstitial change. This is considered stable compared to the prior study. Diaphragms are smooth. Right suprahilar parenchymal scarring considered unchanged. IMPRESSION: Stable diffuse bilateral parenchymal fibrotic/interstitial change. No evidence for superimposed infiltrate. ACT 112: Negative or not required by law. The above report was generated using voice recognition software. It may contain grammatical, syntax or spelling errors. Electronically signed by: Hardeep Huff M.D. 06/14/2019 8:56 AM ECG Data Attestation: I personally reviewed and interpreted this ECG as follows: Indication: + SOB/dyspnea Rate (beats per minute): 108 Rhythm: + sinus tachycardia ECG Intervals/blocks: + Normal QT-c (QT-c 426.) ECG ST segments: no ST depression and no ST elevation Blood Pressure Blood Pressure Findings: Elevated blood pressure Blood Pressure Disposition: further management by hospitalist [facility] Narrative Cardiac Monitoring: An order was placed for continuous cardiac monitoring. The monitor shows a rate of 103 with sinus rhythm. This is a 74-year-old female who presents emergency department complaining of shortness of breath as well as hallucinations. The patient was found to have an elevation in her CO2. She was given an hour-long breathing treatment and placed on BiPAP. She was also started on Solu-Medrol. She does not have an elevation in her white blood cell count and her cardiac enzymes are also normal. I did discuss the case with the hospitalist service who did agree to admit the patient. Patient family were in agreement with the treatment plan. Impression & Plan Hypercapnic respiratory failure, Hypoxia Discharge Plan Visit Data Chief Complaint: Shortness of Breath/Dyspnea Stated Complaint: sob/ams ED Provider: Jose Hernandez Discharge Problem: Hypercapnic respiratory failure, Hypoxia Patient Disposition: Being Evaluated by Hospitalist Forms Stand Alone Forms: [facility] Prescriptions Prescriptions: No Action metformin 500 mg Tablet 500 mg PO QDD@1700 RF: 0 venlafaxine 75 mg Tablet 75 mg PO BID@0800,1300 RF: 0 ipratropium-albuterol 0.5 mg-3 mg(2.5 mg base)/3 mL Solution For Nebulization 3 ml INHALATION QID@08,11,16,20 RF: 0 ondansetron HCl [Zofran] 4 mg Tablet 4 mg PO Q4H PRN (Reason: Nausea) RF: 0 prednisone 5 mg Tablet 5 mg PO DAILY@0800 RF: 0 atenolol 25 mg Tablet 25 mg PO DAILY@0800 RF: 0 azathioprine 50 mg Tablet 50 mg PO DAILY@0800 RF: 0 melatonin 3 mg Tablet 3 mg PO HS@2000 RF: 0 venlafaxine 37.5 mg Tablet 37.5 mg PO QDD@1700 RF: 0 esomeprazole magnesium [Nexium] 40 mg Capsule,Delayed Release(Dr/Ec) 40 mg PO DAILY@0800 RF: 0 buspirone 7.5 mg Tablet 7.5 mg PO TID@0800,1300,2000 RF: 0 levothyroxine 112 mcg Tablet 112 mcg PO DAILY@0600 RF: 0 clonazepam 0.25 mg Tablet,Disintegrating 0.25 mg PO HS PRN (Reason: Insomnia) RF: 0 Dionicio Podhaler 28 mg Capsule 4 cap INHALATION UD RF: 0 Magic Mouth Wash 10 ml PO QID@08,13,17,21 RF: 0 Referrals Referrals: Ortega Zavala [Primary Care Provider] - Discharge Problem: Hypercapnic respiratory failure Qualifiers: Chronicity: acute Qualified Code(s): J96.02 - Acute respiratory failure with hypercapnia The scribe's documentation has been prepared under my direction and personally reviewed by me in its entirety. I confirm that the note above accurately reflects all work, treatment, procedures, and medical decision making performed by me.
[2019-06-14 13:34] LABS: Appearance Urine Clear (Clear); Bacteria Urine Automated Negative (Negative); Bilirubin Urine Negative (Negative); Blood Urine Negative (Negative); Color Urine Yellow; Epithelial Cell Urine Auto >30 /lpf (0-5); Glucose Urine UA Negative (Negative); Ketones Urine 1+ (Negative); Leukocyte Esterase Urine Negative (Negative); Nitrite Urine Negative (Negative); Protein Urine 1+ (Negative); RBC Urine Automated 0-4 /hpf (0-4); Specific Gravity Urine 1.022 (1.000-1.030); Urobilinogen Urine Negative (Negative)
--- NOTE | 2019-06-14 13:44 | History & Physical Report ---
Date of Service June 14, 2019 Assessment & Plan (1) Acute on chronic respiratory failure with hypoxia and hypercapnia: - Currently requiring 4L via NC. - Recommend to use BiPAP at night - prescribed Trilogy qhs at [facility] but has not been compliant due to insomnia. - CXR on admission was negative; consider CT of chest for further evaluation. - Procalcitonin pending; hold abx coverage, no evidence of infection. - Received Solu-medrol 60 mg IV; will start Prednisone 40 mg PO daily on 06/15. - Duonebs QID scheduled; sodium chloride nebs BID. - Chest percussion therapy TID. - Pulmonology consulted, appreciate input. Follows closely with Dr. Barksdale. (2) Bronchiectasis: - Significant work-up and long, long treatment for bronchiectasis NOS. Moved from [place] recently to be with family. She reported both infections and colonization by Pseudomonas as well as prior infection and treatment for GEOFFREY. - Sputum culture pending; continue Tobramycin as prescribed. (3) Chest pain: - Initial trop was negative; will trend q6hr x 2. - Chest pain is likely related to coughing episodes, does not appear cardiac. - Continue home Atenolol. (4) GEOFFREY (mycobacterium avium-intracellulare): - Completed 19 months of treatment for infection during her time living in [place]. - Continue Tobramycin inhaler 14 days on, 14 days off (entered non-formulary) - Does not require airborne or droplet precautions, has been treated for ~19 months. (5) Diabetes mellitus type 2 in nonobese: - A1C was 6.1 in Apr 2019. - SSI coverage in setting of steroids. - Carb consistent diet. - On Metformin 500 mg daily at home. (6) Hypertension: - Continue Atenolol as prescribed. (7) Hypothyroidism: - Continue Levothyroxine as prescribed. - TSH most recently was 0.323. (8) Anxiety: - Has been an ongoing issue -- related to chronic SOB. - Started Buspar 7.5 mg TID during last admission with some improvement. - Cannot tolerate high doses of Klonopin -- leads to increased lethargy; ordered Klonopin 0.25 mg qhs prn. (9) Depression: - Continue Buspar TID. - Continue Effexor as prescribed. (10) Vasculitis: - Home Prednisone dose increased to 40 mg daily for acute resp failure. - Hold home Azathioprine due to concern for acute infection (viral vs. bacterial) (11) Insomnia: - Has been an ongoing issue -- did not tolerate Trilogy at the [facility] due to insomnia. - Will avoid meds such as Ambien, Benadryl due to advanced age. - Melatonin 3 mg qhs. - Start Seroquel 12.5 mg qhs; titrate med if tolerating. (12) DVT prophylaxis: - SCDs; Heparin q12hr. Dispo: Med/surg with tele; discharge pending improvement in resp issues. History of Present Illness Chief Complaint: Shortness of breath Primary Care Provider: [facility] Ms. Hooks is a 74 year old female with past medical history of chronic respiratory failure, bronchiectasis, anxiety/depression, vasculitis, type II DM, HTN, hypothyroidism who presented with increased shortness of breath. She was recently admitted from 05/15-05/27/19 for similar respiratory issues. Pt. was discharged with instructions to use the Trilogy machine qhs along with 2-3L via NC during the day. Pt. was doing well following discharge but developed increase SOB over the last few days. She has not been able to tolerate using Trilogy in the evening due to insomnia but has been wearing oxygen throughout the day. She had hallucinations last evening along with severe insomnia. Has been using Buspar for anxiety related to SOB but d/c'ed Klonopin as it led to increased lethargy. C/o increased productive cough with green-yellow sputum. Has chest pain, located across most of chest, with SOB episodes but denies radiation of pain to jaw or neck, nausea/vomiting. Is having formed BMs; denies abd pain, dysuria, hematuria, urinary frequency, LE edema, rhinorrhea, sinus congestion or headache, pharyngitis, fever/chills. ER course: She received Solu-medrol 60 mg IV x 1 dose and Duoneb treatment. Will be admitted for pulmonology consult and further evaluation of acute hypoxia/SOB. Allergies Allergy/AdvReac Type Severity Reaction Status Date / Time levofloxacin Allergy Unknown Unverified 06/14/19 08:12 Sulfa (Sulfonamide Allergy Unknown Unverified 06/14/19 08:12 Antibiotics) Home Medications Home Medications Medication Instructions Recorded Confirmed Type Magic Mouth Wash 10 ml PO QID@08,13,17,06/14/19 06/14/19 History atenolol 25 mg PO DAILY@0800 06/14/19 06/14/19 History azathioprine 50 mg PO DAILY@0800 06/14/19 06/14/19 History buspirone 7.5 mg PO TID@0800,1300,199906/14/19 06/14/19 History clonazepam 0.25 mg PO HS PRN 06/14/19 06/14/19 History esomeprazole magnesium [Nexium] 40 mg PO DAILY@0800 06/14/19 06/14/19 History ipratropium-albuterol 3 ml INHALATION QID@08,,,06/14/19 06/14/19 History levothyroxine 112 mcg PO DAILY@0600 06/14/19 06/14/19 History melatonin 3 mg PO HS@199906/14/19 06/14/19 History metformin 500 mg PO QDD@1700 06/14/19 06/14/19 History ondansetron HCl [Zofran] 4 mg PO Q4H PRN 06/14/19 06/14/19 History prednisone 5 mg PO DAILY@0800 06/14/19 06/14/19 History tobramycin [Dionicio Podhaler] 4 cap INHALATION UD 06/14/19 06/14/19 History venlafaxine 37.5 mg PO QDD@1700 06/14/19 06/14/19 History venlafaxine 75 mg PO BID@0800,1300 06/14/19 06/14/19 History Past Med/Surg History Medical History (Updated 06/14/19 @ 13:31 by Soledad Albrecht PA-C) Anxiety Bronchiectasis Depression Goals of care, counseling/discussion Hypercapnic respiratory failure (Acute) Hypertension Hypothyroidism GEOFFREY (mycobacterium avium-intracellulare) Vasculitis Surgical History (Updated 06/14/19 @ 13:27 by Soledad Albrecht PA-C) No pertinent past surgical history Family History Other Family history non-contributory Social History Preferred Language: Kiswahili Communication Ability: Effective Street Department Dispatcher Required: No Beliefs That Will Affect Care: Lutheran Lutheran Beliefs: Zoroastrianism. Current Living Situation: Spouse Current Living Situation Comment: [place], [facility] CURRENT[facility] Other Information That Helps Us Care for You: No Feels Safe at Home: Yes Safety Concerns: Feels Safe At This Time Smoking Status: Former smoker Tobacco Type: cigarettes ; packs per day: 1 ; Second Hand Exposure: No ; Hx Alcohol Use: No Hx Substance Use: No Review of Systems Review of Systems: All systems reviewed & are unremarkable except as noted in HPI & below Constitutional: + fatigue, + weakness and + anorexia; no fever and no chills Ear, Nose, Mouth, Throat: no nasal congestion, no nasal discharge, no post nasal drip, no sinus pain/pressure and no sore throat Respiratory: + cough, + dyspnea, + dyspnea on exertion, + sputum production and + wheezing Cardiovascular: + chest pain; no radiating jaw, neck or arm pain, no palpitations, no lightheadedness and no edema Gastrointestinal: no abdominal pain, no nausea, no vomiting, no constipation and no diarrhea/loose stools Genitourinary: no dysuria, no difficulty urinating, no urinary frequency and no hematuria Musculoskeletal: no back pain and no joint pain Integumentary: no non-healing lesions Physical Exam Physical Exam: General: Frail appearing elderly female, in moderate distress 2/2 respiratory issues. HEENT: NC/AT; PERRLA with EOMI; [place] conjunctiva, MMM. No erythema of posterior pharynx Neck: Supple and nontender Cardiac: Tachycardia, regular rhythm. Lungs: +4L via NC; scattered rhonchi and wheezing noted in all lung espino. Abdomen: Bowel normoactive X 4; Nontender to palpation Rectal: Deferred : Deferred Extremities: Warm. No edema present Neuro: No focal weakness Skin: No rash Results & Data Vital Signs (Past 12 Hours) Vital Signs Temp Pulse Pulse Resp BP Pulse Ox 06/14/19 12:31 108 H 23 90 06/14/19 12:30 105 H 37 H 148/73 H 91 06/14/19 12:01 109 H 93 06/14/19 12:00 120 H 20 155/70 H 93 06/14/19 11:40 111 H 19 140/56 L 91 06/14/19 11:30 110 H 24 90 06/14/19 11:00 102 H 20 92 06/14/19 10:30 116 H 19 94 06/14/19 10:00 105 H 20 94 06/14/19 09:30 105 H 30 H 136/66 100 06/14/19 09:00 101 H 41 H 154/68 H 99 06/14/19 08:31 103 H 18 95 06/14/19 08:30 96 H 33 H 153/74 H 97 06/14/19 08:00 108 H 26 H 152/89 H 97 06/14/19 07:49 36.5 C 118 H 22 168/97 H 89 L 06/14/19 07:41 103 H 30 H 168/97 H 96 Laboratory Results 06/14/19 06/14/19 06/14/19 Range/Units 13:10 08:41 08:35 WBC (4.8-10.8) K/uL RBC (4.2-5.4) M/uL Hgb (12.0-16.0) g/dL Hct (37-47) % MCV (80-100) fL MCH (25-34) pg MCHC (32-36) g/dL RDW Std Deviation (36.4-46.3) fL RDW Coeff of Taylor (11.5-14.5) % Plt Count (130-400) K/uL MPV (7.4-10.4) fL Immature Gran % (Auto) % Neut % (Auto) % Lymph % (Auto) % O'Brien % (Auto) % Eos % (Auto) % Baso % (Auto) % Immature Gran # (Auto) (0.00-0.02) K/uL Neut # (Auto) (1.4-6.5) K/uL Lymph # (Auto) (1.2-3.4) K/uL O'Brien # (Auto) (0.11-0.59) K/uL Eos # (Auto) (0-0.5) K/uL Baso # (Auto) (0-0.2) K/uL PT (9.0-12.0) Seconds INR (0.9-1.1) APTT (21.0-31.0) Seconds PTT Ratio ABG pH 7.30 L (7.35-7.45) ABG pCO2 74 H (35-46) mmHg ABG pO2 116 H (80-95) mmHg ABG HCO3 36 H (19-24) mmol/L ABG O2 Saturation 97.9 H (90-95) % ABG Base Excess 6.9 H (-9-1.8) mEq/L Rakesh Test Pos (Pos) Barometric Pressure 736.3 mm/Hg Oxygen Given 8L Sodium (136-145) mmol/L Potassium (3.5-5.1) mmol/L Chloride (98-107) mmol/L Carbon Dioxide (21-32) mmol/L Anion Gap (3-11) BUN (7-18) mg/dl Creatinine (0.6-1.2) mg/dl Est Cr Clr Drug Dosing ml/min Est GFR ( Amer) Est GFR (Non-Af Amer) BUN/Creatinine Ratio (10-20) Glucose (70-99) mg/dl Calcium (8.5-10.1) mg/dl Total Bilirubin (0.2-1) mg/dl AST (15-37) U/L ALT (12-78) U/L Alkaline Phosphatase (45-117) U/L Total Creatine Kinase (26-192) U/L CK-MB (CK-2) (0.5-3.6) ng/ml CK/CKMB % Calc (0-3.0) Troponin I (0-0.045) ng/ml Total Protein (6.4-8.2) gm/dl Albumin (3.4-5.0) gm/dl Globulin (2.5-4.0) gm/dl Albumin/Globulin Ratio (0.9-2) Lipase (73-393) U/L Urine Color Pending Urine Appearance Pending Urine pH Pending Ur Specific [place] Pending Urine Protein Pending Urine Glucose (UA) Pending Urine Ketones Pending Urine Blood Pending Urine Nitrite Pending Urine Bilirubin Pending Urine Urobilinogen Pending Ur Leukocyte Esterase Pending Influenza Type A (PCR) Neg for Influ A (Neg) Influenza Type B (PCR) Neg for Influ B (Neg) 06/14/19 06/14/19 06/14/19 Range/Units 08:26 08:26 08:26 WBC 9.60 (4.8-10.8) K/uL RBC 3.40 L (4.2-5.4) M/uL Hgb 11.5 L (12.0-16.0) g/dL Hct 36.7 L (37-47) % MCV 107.9 H (80-100) fL MCH 33.8 (25-34) pg MCHC 31.3 L (32-36) g/dL RDW Std Deviation 57.1 H (36.4-46.3) fL RDW Coeff of Taylor 14.5 (11.5-14.5) % Plt Count 279 (130-400) K/uL MPV 9.8 (7.4-10.4) fL Immature Gran % (Auto) 0.3 % Neut % (Auto) 61.3 % Lymph % (Auto) 23.6 % O'Brien % (Auto) 12.6 % Eos % (Auto) 1.5 % Baso % (Auto) 0.7 % Immature Gran # (Auto) 0.03 H (0.00-0.02) K/uL Neut # (Auto) 5.88 (1.4-6.5) K/uL Lymph # (Auto) 2.27 (1.2-3.4) K/uL O'Brien # (Auto) 1.21 H (0.11-0.59) K/uL Eos # (Auto) 0.14 (0-0.5) K/uL Baso # (Auto) 0.07 (0-0.2) K/uL PT 10.8 (9.0-12.0) Seconds INR 1.1 (0.9-1.1) APTT 24.1 (21.0-31.0) Seconds PTT Ratio 0.9 ABG pH (7.35-7.45) ABG pCO2 (35-46) mmHg ABG pO2 (80-95) mmHg ABG HCO3 (19-24) mmol/L ABG O2 Saturation (90-95) % ABG Base Excess (-9-1.8) mEq/L Rakesh Test (Pos) Barometric Pressure mm/Hg Oxygen Given Sodium 135 L (136-145) mmol/L Potassium 3.9 (3.5-5.1) mmol/L Chloride 94 L (98-107) mmol/L Carbon Dioxide 35 H (21-32) mmol/L Anion Gap 6.0 (3-11) BUN 13 (7-18) mg/dl Creatinine 0.70 (0.6-1.2) mg/dl Est Cr Clr Drug Dosing 56.6 ml/min Est GFR ( Amer) 97.5 Est GFR (Non-Af Amer) 84.2 BUN/Creatinine Ratio 18.0 (10-20) Glucose 96 (70-99) mg/dl Calcium 9.3 (8.5-10.1) mg/dl Total Bilirubin 0.3 (0.2-1) mg/dl AST 14 L (15-37) U/L ALT 10 L (12-78) U/L Alkaline Phosphatase 90 (45-117) U/L Total Creatine Kinase 41 (26-192) U/L CK-MB (CK-2) 1.4 (0.5-3.6) ng/ml CK/CKMB % Calc 3.4 H (0-3.0) Troponin I < 0.015 (0-0.045) ng/ml Total Protein 8.4 H (6.4-8.2) gm/dl Albumin 3.2 L (3.4-5.0) gm/dl Globulin 5.2 H (2.5-4.0) gm/dl Albumin/Globulin Ratio 0.6 L (0.9-2) Lipase 56 L (73-393) U/L Urine Color Urine Appearance Urine pH Ur Specific [place] Urine Protein Urine Glucose (UA) Urine Ketones Urine Blood Urine Nitrite Urine Bilirubin Urine Urobilinogen Ur Leukocyte Esterase Influenza Type A (PCR) (Neg) Influenza Type B (PCR) (Neg) Code Status & VTE Plan VTE Prophylaxis Plan VTE Prophylaxis will be ordered: Yes Supervising Physician Co-Signing Physician Notes Patient seen and examined with Soledad ROSADO. I agree with her exam findings, review of systems, assessment and plan. I personally reviewed the lab work and imaging as well. patient reports that she really has not been sleeping well the past two weeks the Trilogy helps with her breathing but she might sleep 1.5 hours at a time, wake up for 1-2 hours, sleep 1-2 hours more some nights she gets even less sleep she has started to have hallucinations, she is weak in her legs, dizzy labs show that her CO2 is up slightly at 74 but her pH is only a little lower at 7.3 when she was discharged her CO2 was 60 (on 05/24/19) - Insomnia, Hallucinations: likely combination of her baseline anxiety and insomnia sleep deprivation has caused her to become weak, dizzy will start with Seroquel 12.5mg HS but will likely require higher dose she is very sensitive to benzodiazepines, do not want to over sedate her because of her hypercapnia - Chronic hypoxic and hypercapnic respiratory failure continue NIPPV at night consult Dr. Barksdale - Bronchiectasis with h/o Pseudomonas infection continue Tobramycin inhaled 14 days on / 14 days off PG Care Time/CCT Total # of Minutes Spent Total Time Spent with Patient: Total time spent is greater than 50% in coordination of care (as documented) at patient's floor/unit and/or counseling patient: Coding Level of Care Code 67494 Initial Inpt Care Lvl 3 Diagnoses Acute on chronic respiratory failure with hypoxia and hypercapnia J96.21; J96.22 Bronchiectasis J47.9 Bronchiectasis type: uncomplicated Chest pain R07.9 GEOFFREY (mycobacterium avium-intracellulare) A31.0 Diabetes mellitus type 2 in nonobese E11.9 Hypertension I10 Hypothyroidism E03.9 Anxiety F41.9 Depression F32.9 Vasculitis I77.6 Insomnia G47.00 DVT prophylaxis Z29.9 (1) Bronchiectasis Bronchiectasis type: uncomplicated Qualified Code(s): J47.9 - Bronchiectasis, uncomplicated
[2019-06-14] MEDS ORDERED: GLUCAGON FOR INJ 1 MG VIAL SQ PRN (14:43)
[2019-06-14] MEDS ORDERED: ONDANSETRON INJ 2 MG/ML 2 ML VIAL IV PRN (14:43)
[2019-06-14] MEDS ORDERED: ACETAMINOPHEN 325 MG TAB PO PRN (14:43)
[2019-06-14] MEDS ORDERED: GLUCOSE 40% GEL 15 GM TUBE PO PRN (14:43)
[2019-06-14] MEDS ORDERED: POLYETHYLENE (MIRALAX) 17 GM PACK PO PRN (14:43)
[2019-06-14] MEDS ORDERED: DEXTROSE 50% 50 ML SYRINGE IV PRN (14:43)
[2019-06-14] MEDS ORDERED: GLUCOSE 10 TABS/TUBE PO PRN (14:43)
[2019-06-14] MEDS ORDERED: CARBOHYDRATES FOR HYPOGLYCEMIA PO PRN (14:43)
[2019-06-14] MEDS ORDERED: clonazePAM 0.5 MG TAB PO PRN (14:50)
[2019-06-14] MEDS ORDERED: VENLAFAXINE HCL 75 MG TAB PO SCH (15:00)
[2019-06-14] MEDS ORDERED: ALBUT/IPRATROP 3MG/0.5MG NEB 3 ML VIAL INH SCH (15:00)
[2019-06-14] MEDS: BUSPIRONE HCL 7.5 MG TAB PO SCH ×2 (16:25→19:56)
[2019-06-14] MEDS: VENLAFAXINE HCL 37.5 MG TAB PO SCH ×2 (16:26→19:55)
--- NOTE | 2019-06-14 16:51 | Electrocardiogram Report ---
Test Reason : Blood Pressure : / mmHG Vent. Rate : 108 BPM Atrial Rate : 108 BPM P-R Int : 156 ms QRS Dur : 078 ms QT Int : 318 ms P-R-T Axes : 076 009 071 degrees QTc Int : 426 ms Poor data quality, interpretation may be adversely affected Sinus tachycardia Biatrial enlargement Abnormal ECG When compared with ECG of 15-MAY-2019 11:29, No significant change was found Confirmed by Matthew Stearns ([id number]) on 06/14/2019 4:51:25 PM Referred By: [facility] Confirmed By:Ben Stearns
[2019-06-14] MEDS: INSULIN ASPART 100 UNITS/ML 3 ML PEN SC SCH ×2 (18:06→21:32)
[2019-06-14] MEDS: LEVALBUTEROL HCL 0.63 MG/3 ML NEB NEB SCH (19:08)
[2019-06-14] MEDS: SODIUM CHLOR 7% 4 ML NEB NEB SCH (19:08)
[2019-06-14] MEDS: HEPARIN SOD 5,000 UNIT/0.5 ML VIAL SQ SCH (20:00)
[2019-06-14] MEDS ORDERED: QUETIAPINE FUMARATE 25 MG TABLET PO SCH (21:00)
--- NOTE | 2019-06-15 01:16 | Communication Note ---
Date of Service: June 15, 2019 S: Called to the room at approximately 1 AM due to change in patient's mental status. Previously the patient had been alert and oriented x4, answering nurses questions, and interacted. This evening she was given her first dose of Seroquel, there was a PRN Klonopin ordered however the patient did not receive it. Per review of records she is sensitive to sedating medications. She has a history of chronic lung disease and was placed on BiPAP and titrated up to 100% O2 saturation. Per report she does not wear BiPAP at home. When I arrived to the room this evening the patient was difficult to arouse. When I yelled her name loudly she would open her eyes, she was able to squeeze my hand with both her right and her left hand. There were no focal motor or sensory deficits observed. She would intermittently twitch and shake, per nursing this was a new finding. O: Vital signs all within normal limits, saturating 100% on room air, no increased work of breathing, on BiPAP. Patient appeared in no acute distress, would intermittently twitch. Was arousable by loudly saying her name and was able to grasp both hands and squeeze. Cards: Regular rate and rhythm, no murmurs rubs or gallops Respiratory: Coarse breath sounds bilaterally Extremities: Negative pedal edema A/P: At present there is no definitive answer for this patient's acute change in mental status. Likely candidates include CO2 retention secondary to hyper oxygenation with BiPAP versus oversedation secondary to Seroquel. Possible although significantly less likely is a stroke or hemorrhage, although there was no fall, no focal motor symptoms, and her vital signs are stable. Furthermore the patient is a DNR/DNI and if we were to identify bleed on CT scan without e mergent [facility] to [facility] her prognosis would be equivalent. -CT scan to rule out neuro pathology -CMP -CBC -ABG Resident Activity Tracking Resident Involvement: Resident Care Provided Care Provided: Adult [facility]
[2019-06-15 01:45] LABS: Basophils # (auto) 0.01 K/uL (0-0.2); Basophils % (auto) 0.1 %; Hemoglobin 10.7 g/dL (12.0-16.0); Immature Granulocytes # (auto) 0.02 K/uL (0.00-0.02); Immature Granulocytes % (auto) 0.3 %; Lymphocytes # (auto) 2.12 K/uL (1.2-3.4); Mean Corpuscular Hgb Conc 31.5 g/dL (32-36); Mean Corpuscular Volume 107.9 fL (80-100); Mean Platelet Volume 9.5 fL (7.4-10.4); Monocytes # (auto) 0.91 K/uL (0.11-0.59); Monocytes % (auto) 12.4 %; Neutrophils # (auto) 4.26 K/uL (1.4-6.5); Neutrophils % (auto) 58.2 %; Platelet Count 250 K/uL (130-400); RDW Coefficient of Variation 14.7 % (11.5-14.5); Red Blood Count 3.15 M/uL (4.2-5.4); White Blood Count 7.32 K/uL (4.8-10.8)
[2019-06-15 01:50] LABS: Allen Test Pos (Pos); Base Excess ABG 8.8 mEq/L (-9-1.8); HCO3 ABG 38 mmol/L (19-24); Oxygen Saturation ABG 92.7 % (90-95); PCO2 ABG 77 mmHg (35-46); PO2 ABG 69 mmHg (80-95); pH ABG 7.31 (7.35-7.45)
[2019-06-15 02:04] LABS: Albumin Level 2.9 gm/dl (3.4-5.0); BUN Creatinine Ratio 26.3 (10-20); Creatinine Clr Calc Pharmacy 60.9 ml/min; Est GFR (Non-African American) 86.2; Potassium 4.2 mmol/L (3.5-5.1)
[2019-06-15 02:07] LABS: Albumin Globulin Ratio 0.6 (0.9-2); Bilirubin,Total 0.2 mg/dl (0.2-1); Globulin 4.9 gm/dl (2.5-4.0); Total Protein 7.8 gm/dl (6.4-8.2)
[2019-06-15] MEDS: LEVALBUTEROL HCL 0.63 MG/3 ML NEB NEB SCH ×4 (02:21→19:55)
[2019-06-15] MEDS: LEVOTHYROXINE SODIUM 112 MCG TABLET PO SCH ×2 (06:23→06:25)
--- NOTE | 2019-06-15 06:43 | CT Scan Report ---
CT head/brain wo con CLINICAL HISTORY: 74 years-old Female with change in mental status. Acutely altered mental status TECHNIQUE: Multiple axial CT images of the head were obtained without contrast. A dose lowering tech nique was utilized adhering to the principles of ALARA. CT DOSE: 821.00 mGycm COMPARISON: None. FINDINGS: Mildly motion degraded exam. No acute intracranial hemorrhage, midline shift, intracranial mass, hydr ocephalus, territorial ischemia or abnormal extra-axial collection. Cerebral vascular calcifications are noted. The calvarium is intact. Mastoid air cells are clear. Mild mucosal thickening of the sphenoid sinuse s and inferior left maxillary sinus. IMPRESSION: Motion degraded exam without acute intracranial abnormality identified. ACT 112: Negative or not required by law. The above report was generated using voice recognition software. It may contain grammatical, syntax o r spelling errors. Electronically signed by: Ramiro Agosto M.D. 06/15/2019 6:42 AM
[2019-06-15] MEDS: SODIUM CHLOR 7% 4 ML NEB NEB SCH ×2 (07:24→19:55)
[2019-06-15 07:47] LABS: Hematocrit (blood only) 37.9 % (37-47); Hemoglobin 11.8 g/dL (12.0-16.0); Mean Corpuscular Hemoglobin 34.1 pg (25-34); Mean Corpuscular Hgb Conc 31.1 g/dL (32-36); Mean Corpuscular Volume 109.5 fL (80-100); Mean Platelet Volume 9.7 fL (7.4-10.4); Platelet Count 293 K/uL (130-400); RDW Coefficient of Variation 14.7 % (11.5-14.5); RDW Standard Deviation 58.5 fL (36.4-46.3); Red Blood Count 3.46 M/uL (4.2-5.4); White Blood Count 9.46 K/uL (4.8-10.8)
[2019-06-15] MEDS: BUSPIRONE HCL 7.5 MG TAB PO SCH ×2 (08:01→12:44)
[2019-06-15] MEDS: PANTOprazole 40 MG TAB PO SCH (08:01)
[2019-06-15] MEDS: ATENOLOL 25 MG TABLET PO SCH (08:01)
[2019-06-15] MEDS: INSULIN ASPART 100 UNITS/ML 3 ML PEN SC SCH ×4 (08:02→22:40)
[2019-06-15] MEDS: VENLAFAXINE HCL 37.5 MG TAB PO SCH ×3 (08:02→17:50)
[2019-06-15] MEDS: HEPARIN SOD 5,000 UNIT/0.5 ML VIAL SQ SCH ×2 (08:03→21:12)
[2019-06-15 08:18] LABS: BUN Creatinine Ratio 25.2 (10-20); Calcium 9.7 mg/dl (8.5-10.1); Creatinine Clr Calc Pharmacy 56.6 ml/min; Est GFR (African American) 97.5; Est GFR (Non-African American) 84.2; Potassium 3.8 mmol/L (3.5-5.1)
[2019-06-15] MEDS ORDERED: predniSONE 2.5 MG TAB PO SCH (09:00)
[2019-06-15] MEDS ORDERED: predniSONE 20 MG TAB PO SCH (09:00)
--- NOTE | 2019-06-15 09:05 | Pulmonary Consultation ---
Date of Consultation June 15, 2019 Assessment & Plan (1) Acute on chronic respiratory failure with hypoxia and hypercapnia: I have discontinued the 40 mg of p.o. prednisone and transition her back to her 2.5 mg p.o. dose. I believe that the prednisone would only make her more anxious and give her more difficulty with sleep. I do not think that she is in a current exacerbation of her bronchiectasis. I do think that she is having ongoing acute hypercapnic respiratory failure likely due to poor compliance of her noninvasive ventilation. She seems to have severe anxiety related to this. I have placed consult in for psychiatry to evaluate her as well given that she has been under the care of a psychiatrist in the past and admits to severe anxiety. She may benefit from an atypical antipsychotic such as risperidone or olanzapine. It appears that she is currently on quetiapine which is a very low dose. Consider going up on the dose. I would avoid other sedating medications like opiates or benzodiazepines unless she is ready to transition towards comfort/hospice care, which at this point does not seem completely unreasonable. She does have profound bronchiectasis based on her prior CT scan of her chest. She is clearly not a candidate for lung transplantation given her age and performance status. With regards to her bronchiectasis, I would continue her level albuterol nebulizations twice a day prior to her hypertonic saline nebulizations. Continue vest therapy 4 times a day for at least 15 minutes. She should try to ambulate as much she can physical therapy should be involved in her care. I do not see a role for antibiotics at this present time other than the chronic suppressive cycling of tobramycin inhaled. I would cycle this medication and 28-day intervals. She must adhere to her noninvasive ventilator as this will reduce her exacerbations and hypercapnic events. She should use this at all times during sleep. She can even uses a rescue device when she is having dyspnea. I did discuss this with the patient's son-in-law and the patient. They both agreed that diagnosis and treatment plan. (2) Anxiety: (3) Insomnia: (4) Tremulousness: (5) Acute exacerbation of bronchiectasis: (6) Pseudomonas aeruginosa colonization: History of Present Illness Reason for Consultation: Acute hypercapnic and hypoxemic respiratory failure. Requesting Physician: Dr. Surinder Alan Attending Physician: Abimael Alan History of Present Illness This is a 74-year-old female with a past medical history of severe bronchiectasis, chronic hypoxemic and hypercapnic respiratory failure, nontuberculous Mycobacterium infection status post treatment, pseudomonas aeruginosa colonization, vasculitis on chronic prednisone and severe anxiety who presents to the hospital due to respiratory failure. She presented on 06/14/2019 due to insomnia and hallucinations. The patient's son-in-law is at bedside. He notes that around Saturday she began having visual hallucinations to the point that it seemed that she was trying knit something in the air. Apparently, her trilogy and cannula were both removed from her face that she was flailing about during the course of the night. She has issues with tolerating the mask and get severe anxiety when she has to wear the trilogy mask. She was very recently in the hospital on 05/27/2019 she was discharged for respiratory failure. She follows with Dr. Barksdale of pulmonary medicine. She last saw him on 06/01/2019. At that time he recommended to continue using noninvasive ventilation and discussed behavior modifications for her insomnia. She notes that her cough is about baseline and she has not noticed any hemoptysis. She has not had any fevers or chills. She has been essentially bedbound over the last 4 weeks due to her ongoing illness. She currently lives in the [facility] at the [facility] which is a nursing facility. During her hospitalization she has had no evidence of fever. She has had no significant leukocytosis. Her arterial blood gas on arrival demonstrated an acute hypercapnic respiratory failure with a pH of 7.3/70 4/116 on 8 L. At 1 AM her blood gas was 7.31/70 7/69 and is not clear what the settings were at that time. She underwent a chest x-ray and a CT head to evaluate her hypercapnic respiratory failure. Both of which were negative for any acute findings. She did receive IV Solu-Medrol in the emergency department and was started on 40 mg of p.o. prednisone. Her procalcitonin was normal at 0.08. Allergies Allergy/AdvReac Type Severity Reaction Status Date / Time levofloxacin Allergy Unknown Unverified 06/14/19 08:12 Sulfa (Sulfonamide Allergy Unknown Unverified 06/14/19 08:12 Antibiotics) Home Medications Home Medications Medication Instructions Recorded Confirmed Type Magic Mouth Wash 10 ml PO QID@08,13,17,21 06/14/1920 History atenolol 25 mg PO DAILY@0800 06/14/19 06/14/19 History azathioprine 50 mg PO DAILY@0800 06/14/19 06/14/19 History buspirone 7.5 mg PO TID@0800,1300,199906/14/19 06/14/19 History clonazepam 0.25 mg PO HS PRN 06/14/19 06/14/19 History esomeprazole magnesium [Nexium] 40 mg PO DAILY@0800 06/14/19 06/14/19 History ipratropium-albuterol 3 ml INHALATION QID@08,11,,06/14/19 06/14/19 History levothyroxine 112 mcg PO DAILY@0600 06/14/19 06/14/19 History melatonin 3 mg PO HS@199906/14/19 06/14/19 History metformin 500 mg PO QDD@1700 06/14/19 06/14/19 History ondansetron HCl [Zofran] 4 mg PO Q4H PRN 06/14/19 06/14/19 History prednisone 5 mg PO DAILY@0800 06/14/19 06/14/19 History tobramycin [Dionicio Podhaler] 4 cap INHALATION UD 06/14/19 06/14/19 History venlafaxine 37.5 mg PO QDD@1700 06/14/19 06/14/19 History venlafaxine 75 mg PO BID@0800,1300 06/14/19 06/14/19 History Patient History Medical History Anxiety Bronchiectasis Depression Goals of care, counseling/discussion Hypercapnic respiratory failure (Acute) Hypertension Hypothyroidism GEOFFREY (mycobacterium avium-intracellulare) Vasculitis Surgical History No pertinent past surgical history Family History Other Family history non-contributory Social History Preferred Language: [place] Communication Ability: Effective Narcotics Detective Required: No Beliefs That Will Affect Care: Hindu Hindu Beliefs: Rastafari. Current Living Situation: Spouse Current Living Situation Comment: [place], [facility] Other Information That Helps Us Care for You: No Feels Safe at Home: Yes Safety Concerns: Feels Safe At This Time Smoking Status: Former smoker Tobacco Type: cigarettes ; packs per day: 1 ; Second Hand Exposure: No ; Hx Alcohol Use: No Hx Substance Use: No Review of Systems Review of Systems: All systems reviewed & are unremarkable except as noted in HPI & below Physical Exam Constitutional: + cachectic; no acute distress Neck: trachea midline, no thyromegaly Respiratory: no respiratory distress Auscultation: + crackles; no wheezes Cardiovascular: RRR, no murmur, no edema Gastrointestinal (Abdomen): normal bowel sounds, soft, nontender, no hepatosplenomegaly Musculoskeletal: Extremities: extremities normal to inspection Skin: no rashes, warm and dry Neurologic: Nonfocal exam Lymphatic: no cervical lymphadenopathy Results & Data ([facility]) Vital Signs (Past 12 Hours) Vital Signs Temp Pulse Pulse Resp BP Pulse Ox 06/15/19 07:45 98.1 F 105 H 20 158/64 H 100 06/15/19 07:25 111 H 20 93 06/15/19 03:01 97.5 F L 86 20 148/71 H 92 06/15/19 02:22 92 H 23 88 L 06/15/19 01:09 80 22 96 06/15/19 00:00 83 06/14/19 23:15 77 22 98 06/14/19 22:51 97.2 F L 83 22 145/57 H 100 06/14/19 22:49 97.2 F L 83 20 145/57 H 100 I personally reviewed her labs, chest imaging and prior notes. Prior EKG sugges t biatrial enlargement. PG Care Time/CCT Total # of Minutes Spent Total Time Spent with Patient: Total time spent is greater than 50% in coordination of care (as documented) at patient's floor/unit and/or counseling patient: Coding Level of Care Code 45382 Initial Inpt Care Lvl 3 Diagnoses Acute on chronic respiratory failure with hypoxia and hypercapnia J96.21; J96.22 Anxiety F41.9 Insomnia G47.00 Tremulousness R25.1 Acute exacerbation of bronchiectasis J47.1 Pseudomonas aeruginosa colonization Z22.39 Time Spent (min) 70
--- NOTE | 2019-06-15 12:52 | Hospitalist Progress Note ---
Date of Service June 15, 2019 Assessment & Plan (1) Acute on chronic respiratory failure with hypoxia and hypercapnia: - Currently requiring 4-5L via NC during the day. - Recommend to use BiPAP at night - prescribed Trilogy qhs at [facility], has not been compliant due to insomnia. - CXR on admission was negative. - Procalcitonin level 0.08; holding abx coverage, no evidence of infection. - Received Solu-medrol 60 mg IV; decreased Prednisone PO to 2.5 mg daily per pulm. - Duonebs QID scheduled; Sodium chloride nebs BID. - Chest percussion therapy TID. - Pulmonology consulted. Breathing issues likely related to anxiety and noncompliance with Trilogy machine --> no evidence of acute exacerbation of bronchiectasis. - Consulting psych for evaluation of anxiety. (2) Bronchiectasis: - Significant work-up and long, long treatment for bronchiectasis NOS. Moved from [place] recently to be with family. She reported both infections and colonization by Pseudomonas as well as prior infection and treatment for GEOFFREY. - Sputum culture pending; continue Tobramycin as prescribed. (3) Chest pain: - Trop negative x 3. - Chest pain is likely related to coughing episodes vs. anxiety, is not cardiac. - Continue home Atenolol. (4) GEOFFREY (mycobacterium avium-intracellulare): - Completed 19 months of treatment for infection during her time living in [place]. - Continue Tobramycin inhaler QOD 14 days on, 14 days off (entered as non- formulary, will need to bring from home) - Droplet precautions. (5) Diabetes mellitus type 2 in nonobese: - A1C was 6.1 in Apr 2019. - SSI coverage in setting of steroids. - Carb consistent diet. - Metformin 500 mg daily at home. (6) Hypertension: - Continue Atenolol as prescribed. (7) Hypothyroidism: - Continue Levothyroxine as prescribed. - TSH most recently was 0.323. (8) Anxiety: - Has been an ongoing issue, likely leading to increased SOB. - Started Buspar 7.5 mg TID during last admission with some improvement. - Cannot tolerate high doses of Klonopin -- leads to increased lethargy; Klonopin 0.25 mg qhs prn. - Consulting psych for evaluation; pt. did not tolerate low dose Seroquel overnight, developed severe lethargy and was very hard to arouse. (9) Depression: - Continue Buspar TID. - Continue Effexor as prescribed. - Consulting psych as noted above. (10) Vasculitis: - Home Prednisone dose of 2.5 mg daily. - Holding home Azathioprine due to concern for acute infection (viral vs. bacterial) (11) Insomnia: - Has been an ongoing issue -- did not tolerate Trilogy at the [facility] due to insomnia. - Will avoid meds such as Ambien, Benadryl due to advanced age. - Melatonin 3 mg qhs. - Trialed Seroquel 12.5 mg qhs last evening, developed severe lethargy -- now on hold. (12) DVT prophylaxis: - SCDs; Heparin q12hr. Dispo: Med/surg with tele; discharge pending improvement in resp issues. PT/OT evaluation, will likely need to return to the [facility]. Admission and Anticipated Discharge Date Admission Date: June 14, 2019 Supervising Physician Co-Signing Physician Notes Attending Attestation - Chart reviewed in detail, care plan d/w ASHLEE Dean. I agree w/ the avalos components of her documentation. Appreciate pulmonary consult & recs. Agree w/ psych consult for Rx recs for insomnia. Has not tolerated most meds at for such. Cont supportive care and chronic meds for chronic resp failure, bronchiectasis, etc. Has significant macrocytosis - recommend checking b12/folate. recent TSH was normal. Vitals remain stable. Abimael Alan MD Subjective Pt. was lethargic, very hard to arouse overnight - likely related to Seroquel 12.5 mg dose. She is currently on 4-5L via NC, did tolerate BiPAP overnight. SOB is stable, no improvement over last 12 hours. C/o cough with dark good sputum. Is very shaky, likely related to Prednisone use and nebulizers. Her anxiety is also increased this morning due to hospitalization. Pulmonology following, appreciate input. Review of Systems Review of Systems: All systems reviewed & are unremarkable except as noted in HPI & below Constitutional: + fatigue and + weakness; no fever, no chills and no anorexia Respiratory: + cough, + dyspnea, + dyspnea on exertion and + sputum production; no wheezing Cardiovascular: no chest pain, no palpitations and no edema Gastrointestinal: no abdominal pain, no nausea, no vomiting and no constipation Genitourinary: no difficulty urinating Musculoskeletal: no back pain and no joint pain Integumentary: no non-healing lesions Neurologic: + tremor(s) Psychiatric: + anxiety Physical Exam Physical Exam: General: Frail appearing elderly female; appears mildly anxious. HEENT: NC/AT; PERRLA with EOMI; [place] conjunctiva, MMM. No erythema of posterior pharynx Neck: Supple and nontender Cardiac: RRR Lungs: +4L via NC; rhonchi noted throughout all lung espino. Abdomen: Bowel normoactive X 4; Nontender to palpation Extremities: Warm. No edema present Neuro: No focal weakness Skin: No rash Results & Data ([facility]) Vital Signs (Past 12 Hours) Vital Signs Temp Pulse Pulse Resp BP Pulse Ox 06/15/19 12:12 111 H 06/15/19 11:47 36.9 C 77 20 145/65 H 91 06/15/19 07:45 36.7 C 105 H 20 158/64 H 100 06/15/19 07:25 111 H 20 93 06/15/19 03:01 36.4 C L 86 20 148/71 H 92 06/15/19 02:22 92 H 23 88 L 06/15/19 01:09 80 22 96 Laboratory Results 06/15/19 06/15/19 06/15/19 Range/Units 11:30 07:26 07:15 WBC (4.8-10.8) K/uL RBC (4.2-5.4) M/uL Hgb (12.0-16.0) g/dL Hct (37-47) % MCV (80-100) fL MCH (25-34) pg MCHC (32-36) g/dL RDW Std Deviation (36.4-46.3) fL RDW Coeff of Taylor (11.5-14.5) % Plt Count (130-400) K/uL MPV (7.4-10.4) fL Immature Gran % (Auto) % Neut % (Auto) % Lymph % (Auto) % [place] % (Auto) % Eos % (Auto) % Baso % (Auto) % Immature Gran # (Auto) (0.00-0.02) K/uL Neut # (Auto) (1.4-6.5) K/uL Lymph # (Auto) (1.2-3.4) K/uL [place] # (Auto) (0.11-0.59) K/uL Eos # (Auto) (0-0.5) K/uL Baso # (Auto) (0-0.2) K/uL ABG pH (7.35-7.45) ABG pCO2 (35-46) mmHg ABG pO2 (80-95) mmHg ABG HCO3 (19-24) mmol/L ABG O2 Saturation (90-95) % ABG Base Excess (-9-1.8) mEq/L Rakesh Test (Pos) Barometric Pressure mm/Hg Oxygen Given Sodium 135 L (136-145) mmol/L Potassium 3.8 (3.5-5.1) mmol/L Chloride 95 L (98-107) mmol/L Carbon Dioxide 38 H (21-32) mmol/L Anion Gap 2.0 L (3-11) BUN 18 (7-18) mg/dl Creatinine 0.70 (0.6-1.2) mg/dl Est Cr Clr Drug Dosing 56.6 ml/min Est GFR ( Amer) 97.5 Est GFR (Non-Af Amer) 84.2 BUN/Creatinine Ratio 25.2 H (10-20) Glucose 106 H (70-99) mg/dl POC Glucose 144 H 107 H (70-99) mg/dl Calcium 9.7 (8.5-10.1) mg/dl Total Bilirubin (0.2-1) mg/dl AST (15-37) U/L ALT (12-78) U/L Alkaline Phosphatase (45-117) U/L Troponin I (0-0.045) ng/ml Total Protein (6.4-8.2) gm/dl Albumin (3.4-5.0) gm/dl Globulin (2.5-4.0) gm/dl Albumin/Globulin Ratio (0.9-2) Procalcitonin (0-0.5) ng/ml Urine Color Urine Appearance (Clear) Urine pH (4.5-7.5) Ur Specific Unity (1.000-1.030) Urine Protein (Negative) Urine Glucose (UA) (Negative) Urine Ketones (Negative) Urine Blood (Negative) Urine Nitrite (Negative) Urine Bilirubin (Negative) Urine Urobilinogen (Negative) Ur Leukocyte Esterase (Negative) Urine WBC (Auto) (0-5) /hpf Urine RBC (Auto) (0-4) /hpf U Hyaline Cast (Auto) (0-5) /lpf U Epithel Cells (Auto) (0-5) /lpf Urine Bacteria (Auto) (Negative) 06/15/19 06/15/19 06/15/19 Range/Units 07:15 01:36 01:36 WBC 9.46 (4.8-10.8) K/uL RBC 3.46 L (4.2-5.4) M/uL Hgb 11.8 L (12.0-16.0) g/dL Hct 37.9 (37-47) % MCV 109.5 H (80-100) fL MCH 34.1 H (25-34) pg MCHC 31.1 L (32-36) g/dL RDW Std Deviation 58.5 H (36.4-46.3) fL RDW Coeff of Taylor 14.7 H (11.5-14.5) % Plt Count 293 (130-400) K/uL MPV 9.7 (7.4-10.4) fL Immature Gran % (Auto) % Neut % (Auto) % Lymph % (Auto) % [place] % (Auto) % Eos % (Auto) % Baso % (Auto) % Immature Gran # (Auto) (0.00-0.02) K/uL Neut # (Auto) (1.4-6.5) K/uL Lymph # (Auto) (1.2-3.4) K/uL [place] # (Auto) (0.11-0.59) K/uL Eos # (Auto) (0-0.5) K/uL Baso # (Auto) (0-0.2) K/uL ABG pH 7.31 L (7.35-7.45) ABG pCO2 77 H (35-46) mmHg ABG pO2 69 L (80-95) mmHg ABG HCO3 38 H (19-24) mmol/L ABG O2 Saturation 92.7 (90-95) % ABG Base Excess 8.8 H (-9-1.8) mEq/L Rakesh Test Pos (Pos) Barometric Pressure 732.3 mm/Hg Oxygen Given 30% Sodium 137 (136-145) mmol/L Potassium 4.2 (3.5-5.1) mmol/L Chloride 96 L (98-107) mmol/L Carbon Dioxide 38 H (21-32) mmol/L Anion Gap 3.0 (3-11) BUN 17 (7-18) mg/dl Creatinine 0.65 (0.6-1.2) mg/dl Est Cr Clr Drug Dosing 60.9 ml/min Est GFR ( Amer) 100.0 Est GFR (Non-Af Amer) 86.2 BUN/Creatinine Ratio 26.3 H (10-20) Glucose 106 H (70-99) mg/dl POC Glucose (70-99) mg/dl Calcium 9.0 (8.5-10.1) mg/dl Total Bilirubin 0.2 (0.2-1) mg/dl AST 10 L (15-37) U/L ALT 11 L (12-78) U/L Alkaline Phosphatase 80 (45-117) U/L Troponin I (0-0.045) ng/ml Total Protein 7.8 (6.4-8.2) gm/dl Albumin 2.9 L (3.4-5.0) gm/dl Globulin 4.9 H (2.5-4.0) gm/dl Albumin/Globulin Ratio 0.6 L (0.9-2) Procalcitonin (0-0.5) ng/ml Urine Color Urine Appearance (Clear) Urine pH (4.5-7.5) Ur Specific Unity (1.000-1.030) Urine Protein (Negative) Urine Glucose (UA) (Negative) Urine Ketones (Negative) Urine Blood (Negative) Urine Nitrite (Negative) Urine Bilirubin (Negative) Urine Urobilinogen (Negative) Ur Leukocyte Esterase (Negative) Urine WBC (Auto) (0-5) /hpf Urine RBC (Auto) (0-4) /hpf U Hyaline Cast (Auto) (0-5) /lpf U Epithel Cells (Auto) (0-5) /lpf Urine Bacteria (Auto) (Negative) 06/15/19 06/15/19 06/14/19 Range/Units 01:36 00:44 20:11 WBC 7.32 (4.8-10.8) K/uL RBC 3.15 L (4.2-5.4) M/uL Hgb 10.7 L (12.0-16.0) g/dL Hct 34.0 L (37-47) % MCV 107.9 H (80-100) fL MCH 34.0 (25-34) pg MCHC 31.5 L (32-36) g/dL RDW Std Deviation 58.0 H (36.4-46.3) fL RDW Coeff of Taylor 14.7 H (11.5-14.5) % Plt Count 250 (130-400) K/uL MPV 9.5 (7.4-10.4) fL Immature Gran % (Auto) 0.3 % Neut % (Auto) 58.2 % Lymph % (Auto) 29.0 % [place] % (Auto) 12.4 % Eos % (Auto) 0.0 % Baso % (Auto) 0.1 % Immature Gran # (Auto) 0.02 (0.00-0.02) K/uL Neut # (Auto) 4.26 (1.4-6.5) K/uL Lymph # (Auto) 2.12 (1.2-3.4) K/uL [place] # (Auto) 0.91 H (0.11-0.59) K/uL Eos # (Auto) 0.00 (0-0.5) K/uL Baso # (Auto) 0.01 (0-0.2) K/uL ABG pH (7.35-7.45) ABG pCO2 (35-46) mmHg ABG pO2 (80-95) mmHg ABG HCO3 (19-24) mmol/L ABG O2 Saturation (90-95) % ABG Base Excess (-9-1.8) mEq/L Rakesh Test (Pos) Barometric Pressure mm/Hg Oxygen Given Sodium (136-145) mmol/L Potassium (3.5-5.1) mmol/L Chloride (98-107) mmol/L Carbon Dioxide (21-32) mmol/L Anion Gap (3-11) BUN (7-18) mg/dl Creatinine (0.6-1.2) mg/dl Est Cr Clr Drug Dosing ml/min Est GFR ( Amer) Est GFR (Non-Af Amer) BUN/Creatinine Ratio (10-20) Glucose (70-99) mg/dl POC Glucose 110 H (70-99) mg/dl Calcium (8.5-10.1) mg/dl Total Bilirubin (0.2-1) mg/dl AST (15-37) U/L ALT (12-78) U/L Alkaline Phosphatase (45-117) U/L Troponin I < 0.015 (0-0.045) ng/ml Total Protein (6.4-8.2) gm/dl Albumin (3.4-5.0) gm/dl Globulin (2.5-4.0) gm/dl Albumin/Globulin Ratio (0.9-2) Procalcitonin (0-0.5) ng/ml Urine Color Urine Appearance (Clear) Urine pH (4.5-7.5) Ur Specific Unity (1.000-1.030) Urine Protein (Negative) Urine Glucose (UA) (Negative) Urine Ketones (Negative) Urine Blood (Negative) Urine Nitrite (Negative) Urine Bilirubin (Negative) Urine Urobilinogen (Negative) Ur Leukocyte Esterase (Negative) Urine WBC (Auto) (0-5) /hpf Urine RBC (Auto) (0-4) /hpf U Hyaline Cast (Auto) (0-5) /lpf U Epithel Cells (Auto) (0-5) /lpf Urine Bacteria (Auto) (Negative) 06/14/19 06/14/19 06/14/19 Range/Units 20:06 16:40 14:19 WBC (4.8-10.8) K/uL RBC (4.2-5.4) M/uL Hgb (12.0-16.0) g/dL Hct (37-47) % MCV (80-100) fL MCH (25-34) pg MCHC (32-36) g/dL RDW Std Deviation (36.4-46.3) fL RDW Coeff of Taylor (11.5-14.5) % Plt Count (130-400) K/uL MPV (7.4-10.4) fL Immature Gran % (Auto) % Neut % (Auto) % Lymph % (Auto) % [place] % (Auto) % Eos % (Auto) % Baso % (Auto) % Immature Gran # (Auto) (0.00-0.02) K/uL Neut # (Auto) (1.4-6.5) K/uL Lymph # (Auto) (1.2-3.4) K/uL [place] # (Auto) (0.11-0.59) K/uL Eos # (Auto) (0-0.5) K/uL Baso # (Auto) (0-0.2) K/uL ABG pH (7.35-7.45) ABG pCO2 (35-46) mmHg ABG pO2 (80-95) mmHg ABG HCO3 (19-24) mmol/L ABG O2 Saturation (90-95) % ABG Base Excess (-9-1.8) mEq/L Rakesh Test (Pos) Barometric Pressure mm/Hg Oxygen Given Sodium (136-145) mmol/L Potassium (3.5-5.1) mmol/L Chloride (98-107) mmol/L Carbon Dioxide (21-32) mmol/L Anion Gap (3-11) BUN (7-18) mg/dl Creatinine (0.6-1.2) mg/dl Est Cr Clr Drug Dosing ml/min Est GFR ( Amer) Est GFR (Non-Af Amer) BUN/Creatinine Ratio (10-20) Glucose (70-99) mg/dl POC Glucose 183 H 124 H (70-99) mg/dl Calcium (8.5-10.1) mg/dl Total Bilirubin (0.2-1) mg/dl AST (15-37) U/L ALT (12-78) U/L Alkaline Phosphatase (45-117) U/L Troponin I (0-0.045) ng/ml Total Protein (6.4-8.2) gm/dl Albumin (3.4-5.0) gm/dl Globulin (2.5-4.0) gm/dl Albumin/Globulin Ratio (0.9-2) Procalcitonin 0.08 (0-0.5) ng/ml Urine Color Urine Appearance (Clear) Urine pH (4.5-7.5) Ur Specific Unity (1.000-1.030) Urine Protein (Negative) Urine Glucose (UA) (Negative) Urine Ketones (Negative) Urine Blood (Negative) Urine Nitrite (Negative) Urine Bilirubin (Negative) Urine Urobilinogen (Negative) Ur Leukocyte Esterase (Negative) Urine WBC (Auto) (0-5) /hpf Urine RBC (Auto) (0-4) /hpf U Hyaline Cast (Auto) (0-5) /lpf U Epithel Cells (Auto) (0-5) /lpf Urine Bacteria (Auto) (Negative) 06/14/19 06/14/19 Range/Units 14:19 13:10 WBC (4.8-10.8) K/uL RBC (4.2-5.4) M/uL Hgb (12.0-16.0) g/dL Hct (37-47) % MCV (80-100) fL MCH (25-34) pg MCHC (32-36) g/dL RDW Std Deviation (36.4-46.3) fL RDW Coeff of Taylor (11.5-14.5) % Plt Count (130-400) K/uL MPV (7.4-10.4) fL Immature Gran % (Auto) % Neut % (Auto) % Lymph % (Auto) % [place] % (Auto) % Eos % (Auto) % Baso % (Auto) % Immature Gran # (Auto) (0.00-0.02) K/uL Neut # (Auto) (1.4-6.5) K/uL Lymph # (Auto) (1.2-3.4) K/uL [place] # (Auto) (0.11-0.59) K/uL Eos # (Auto) (0-0.5) K/uL Baso # (Auto) (0-0.2) K/uL ABG pH (7.35-7.45) ABG pCO2 (35-46) mmHg ABG pO2 (80-95) mmHg ABG HCO3 (19-24) mmol/L ABG O2 Saturation (90-95) % ABG Base Excess (-9-1.8) mEq/L Rakesh Test (Pos) Barometric Pressure mm/Hg Oxygen Given Sodium (136-145) mmol/L Potassium (3.5-5.1) mmol/L Chloride (98-107) mmol/L Carbon Dioxide (21-32) mmol/L Anion Gap (3-11) BUN (7-18) mg/dl Creatinine (0.6-1.2) mg/dl Est Cr Clr Drug Dosing ml/min Est GFR ( Amer) Est GFR (Non-Af Amer) BUN/Creatinine Ratio (10-20) Glucose (70-99) mg/dl POC Glucose (70-99) mg/dl Calcium (8.5-10.1) mg/dl Total Bilirubin (0.2-1) mg/dl AST (15-37) U/L ALT (12-78) U/L Alkaline Phosphatase (45-117) U/L Troponin I < 0.015 (0-0.045) ng/ml Total Protein (6.4-8.2) gm/dl Albumin (3.4-5.0) gm/dl Globulin (2.5-4.0) gm/dl Albumin/Globulin Ratio (0.9-2) Procalcitonin (0-0.5) ng/ml Urine Color Yellow Urine Appearance Clear (Clear) Urine pH 5.0 (4.5-7.5) Ur Specific Unity 1.022 (1.000-1.030) Urine Protein 1+ H (Negative) Urine Glucose (UA) Negative (Negative) Urine Ketones 1+ H (Negative) Urine Blood Negative (Negative) Urine Nitrite Negative (Negative) Urine Bilirubin Negative (Negative) Urine Urobilinogen Negative (Negative) Ur Leukocyte Esterase Negative (Negative) Urine WBC (Auto) 5-10 H (0-5) /hpf Urine RBC (Auto) 0-4 (0-4) /hpf U Hyaline Cast (Auto) 5-10 H (0-5) /lpf U Epithel Cells (Auto) >30 H (0-5) /lpf Urine Bacteria (Auto) Negative (Negative) PG Care Time/CCT Total # of Minutes Spent Total Time Spent with Patient: Total time spent is greater than 50% in coordination of care (as documented) at patient's floor/unit and/or counseling patient: Coding Level of Care Code 30600 Subseq Hosp Care Lvl 3 Diagnoses Acute on chronic respiratory failure with hypoxia and hypercapnia J96.21; J96.22 Bronchiectasis J47.9 Bronchiectasis type: uncomplicated Chest pain R07.9 GEOFFREY (mycobacterium avium-intracellulare) A31.0 Diabetes mellitus type 2 in nonobese E11.9 Hypertension I10 Hypothyroidism E03.9 Anxiety F41.9 Depression F32.9 Vasculitis I77.6 Insomnia G47.00 DVT prophylaxis Z29.9 (1) Bronchiectasis Bronchiectasis type: uncomplicated Qualified Code(s): J47.9 - Bronchiectasis, uncomplicated
--- NOTE | 2019-06-15 14:54 | Psychiatric Consultation ---
Date of Consultation June 15, 2019 Impression / Recommendations Impression Dr. Emma Mckinney was directly involved in review and discussion of the patient's case and participated in medical decision making regarding treatment recommendations. RECOMMENDATIONS: 06/15 - Recommend continuing buspirone TID, but would suggest titrating to 10mg three times daily to better target anxiety - Pt reports ongoing complaints of anxiety, depression, poor sleep, and poor appetite - it is believed she may respond well to a trial of mirtazapine to target mood and sleep, with also likely to provide a benefit for ruminative anxiety and offer a component of appetite stimulation. Would suggest initiating on a scheduled basis at 7.5mg qHS - It remains uncertain if patient is tolerating quetiapine. Patient's daughter feels it has been helpful, while the patient believes it has been contributing to hallucinations and "yelling." Would suggest adjusting the medicine to only as needed use at bedtime - as ideally mirtazapine will offer some benefit to encourage sleep in its place - Attempting to coordinate outpatient psychiatric providers - uncertain at this time what options may be available through [facility], patient also reports having transportation to see providers at an outpatient office. - Pt denies SI, paranoia, and acute signs of psychosis. No indication for inpatient psychiatric treatment at this time. - Appreciate the opportunity to participate in the care of this patient, please reach out to our service with any questions or updates Risk Factors Assessment Do You Have Access To A Gun?: No Psych History Identifying Data 74-year-old female admitted medically on 06/14/2019 after presenting to the ED with shortness of breath. Patient's acute on chronic respiratory failure is being treated on the medical floor. Psychiatric consultation was requested to evaluate patient for anxiety, and provide additional recommendations as indicated. Chief Complaint "Basically, it happens when...well, I don't know. It's all too medical for me..." History of Present Illness Ivett Hooks is a 74-year-old female admitted medically on 06/14/2019 after presenting to the ED with reports of shortness of breath. Patient was recently hospitalized from 05/15/2019 through 05/27/2019 for a similar presentation. Although the psychiatric consult service was not formally consulted at that time, recommendations were made to initiate buspirone for patient's persistent anxiety. Patient was discharged home on buspirone 7.5 mg 3 times daily in combination with her home 3 times daily dosing of venlafaxine IR (75mg at 0800and 1300 - 37.5mg at 1700). Psychiatric consultation was requested during this admission to provide recommendations for "severe anxiety related to dyspnea and BiPAP." Patient is cooperative with psychiatric evaluation. She initially requested to speak one-on-one, but then verbalized desire to have daughter in room - as she states she was having difficulty recalling her psychiatric history with cirilo hyatt. Pt's daughter, Ivett, was cooperative with providing collateral information regarding the patient's history of anxiety and depression. Patient states that she has been prescribed venlafaxine since 07/2018. She states that she had attempted a trial of ECT to target her depressive symptoms, but was unable to tolerate the treatment due to her respiratory symptoms. Pt reports that after she had failed ECT, she was initiated on venlafaxine. Pt and daughter are uncertain as to why the medication was suggested TID, but do report patient had previously had GeneSight testing and it is questioned if her metabolism of the medication may be a factor in this. Pt is not entirely sure that the venlafaxine has been effective for her mood or anxiety, though also admits that she is often not taking the medication as she is prescribed. Patient's daughter does indicate that in November 2018, the patient was hospitalized and then discharged to a physical rehab. Daughter states that she had been there for 3 weeks, receiving her medications as prescribed. Both daughter and patient admits that her anxiety and depression were better managed during that time, and question if it was related to improve consistency with her prescribed medications. At this time, patient is unsure how effective buspirone has been at improving her anxiety; however, she remains agreeable to continuing the medication at this time. In addition to persistent anxiety, patient reports concerns related to insomnia. She states that the anxiety and use of a BiPAP contribute to poor sleep. During her previous inpatient hospitalization, patient did receive a dose of quetiapine to help with sleep and anxiety. It seems that the patient and her daughter have varying opinions as to the benefit of that particular medication. The patient believes that the medication contributed to hallucinations and her feeling a need to "yell out." Daughter states that the patient had experienced hallucinations prior to the introduction of quetiapine, and daughter feels the patient has actually benefited from intermittent use of the medication in the past. Pt describes episodes of "light hallucinations" which she believes are related to new medications. She states that she has previously seen "shapes that I thought were people, but ended up being nothing." Patient states that the evening prior to her admission she had experienced "big, heavy-time hallucinations." During this experience, patient states that she has seen a woman and all of her children. Patient states the woman could take on "an kellie form and shift her shape into that of a vase." Patient stated that she could also hear the voices of several family members whom she thought were visiting her, but were not actually in the room. Patient denies auditory or visual hallucinations at this time. Patient does verbalize ongoing depression, admitting to poor energy, appetite, sleep, and concentration. She does admit that she has little interest in activities that had previously brought her lisa. Patient also indicates ongoing symptoms of anxiety, stating that she will experience intermittent episodes of "panic." She states that a lot of this anxiety surrounds sleep as well as eating. It is reported that there has been a significant reduction in the patient's nutritional intake related to her exacerbated anxiety. Patient denies a history of inpatient psychiatric treatment in the past. She denies current suicidal ideation or hopelessness. Patient denies a history of suicide attempts or other safety concerns. It is reported that patient was previously evaluated at [facility] - having seen Dr. Díaz and Jodie Crowder, DIPAK for mental health treatment in the past. Past Psychiatric History Current Psychiatric Diagnosis: Depression, Anxiety Outpatient Services: No regular outpatient psychiatric providers - states she has seen Dr. Jun Miranda, Ph.D on two occasions, whom patient reports sees patients at [facility] weekly Previous Psych Admissions: Denies history of inpatient psychiatric treatment Do You Have Access To A Gun?: No History of Previous Suicide Attempt: No Past Medication Trials: Per patient report. Includes, but is not limited to: 1. Ativan 2. Zoloft 3. Celexa 4. Cymbalta 5. Buspirone 6. Effexor 7. Seroquel - for sleep Allergies Allergy/AdvReac Type Severity Reaction Status Date / Time levofloxacin Allergy Unknown Unverified 06/14/19 08:12 Sulfa (Sulfonamide Allergy Unknown Unverified 06/14/19 08:12 Antibiotics) Home Medications Home Medications Medication Instructions Recorded Confirmed Type Magic Mouth Wash 10 ml PO QID@08,13,17,06/14/19 06/14/19 History atenolol 25 mg PO DAILY@0800 06/14/19 06/14/19 History azathioprine 50 mg PO DAILY@0800 06/14/19 06/14/19 History buspirone 7.5 mg PO TID@0800,1300,199906/14/19 06/14/19 History clonazepam 0.25 mg PO HS PRN 06/14/19 06/14/19 History esomeprazole magnesium [Nexium] 40 mg PO DAILY@0800 06/14/19 06/14/19 History ipratropium-albuterol 3 ml INHALATION QID@08,11,,06/14/19 06/14/19 History levothyroxine 112 mcg PO DAILY@0600 06/14/19 06/14/19 History melatonin 3 mg PO HS@199906/14/19 06/14/19 History metformin 500 mg PO QDD@1700 06/14/19 06/14/19 History ondansetron HCl [Zofran] 4 mg PO Q4H PRN 06/14/19 06/14/19 History prednisone 5 mg PO DAILY@0800 06/14/19 06/14/19 History tobramycin [Dionicio Podhaler] 4 cap INHALATION UD 06/14/19 06/14/19 History venlafaxine 37.5 mg PO QDD@1700 06/14/19 06/14/19 History venlafaxine 75 mg PO BID@0800,1300 06/14/19 06/14/19 History Family History Patient does admit that both of her children are prescribed antidepressant medications. She is on otherwise uncertain about family history of specific psychiatric conditions. Substance Abuse History Patient admits she is a former smoker, having quit about 20 years ago. She denies routine alcohol consumption or use of illicit substances. 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 marital status: Current Living Situation: Spouse Current Living Situation Comment: [place] Other Information That Helps Us Care for You: No Feels Safe at Home: Yes Safety Concerns: Feels Safe At This Time Smoking Status: Former smoker Tobacco Type: cigarettes ; packs per day: 1 ; Second Hand Exposure: No ; Hx Alcohol Use: No Hx Substance Use: No Physical Exam Psychiatric: Orientation: alert, oriented x 3 and cooperative (and pleasant) Apperance: appropriately dressed, appropriately groomed and appeared stated age Thin, frail female, appearing uncomfortable but in no acute distress. Pt is appropriately dressed, wearing a hospital gown. Level of grooming and hygiene appear adequate for circumstances. Eye Contact: good eye contact Motor Behavior: no abnormal motor movements (observed while laying in bed) Speech: normal rate/rhythm/volume of speech Affect: + blunted affect (appearing subdued, but not overtly depressed) Mood: + depressed mood and + anxious mood Thought Process: goal directed thought process, clear/coherent thought process and thought association intact Thought Content: reality based without delusions; not paranoid, no hopelessness and no worthlessness Suicidal Thoughts: denies suicidal thoughts and denies suicidal intent Homicidal Thoughts: denies homicidal thoughts Hallucinations: no auditory hallucinations and no visual hallucinations Denies hallucinations presently Cognition: attention grossly intact and language grossly intact Insight: + fair insight Judgement: + fair judgement Vital Signs (Past 24 Hours): Last Vital Signs Temp 36.9 C 06/15/19 11:47 Pulse 79 06/15/19 13:24 Resp 20 06/15/19 13:24 BP 145/65 H 06/15/19 11:47 Pulse Ox 93 06/15/19 13:24 Review of Systems Constitutional: reports fatigue this morning Cardiovascular: denied Respiratory: reports chronic shortness of breath Gastrointestinal: denied Neurological: denied Psychiatric: denies symptoms other than stated above Total of at least 10 systems reviewed, pertinent positives as above and in HPI. Results & Data (PSY) Medications Administered Atenolol (Tenormin) 25 mg PO DAILY@0800 [facility] Stop: 07/15/19 07:59 Last Admin: 06/15/19 08:01 Dose: 25 mg Documented by: [id number] Buspirone HCl (Buspar) 7.5 mg PO TID@0800,1300,2000 [facility] Stop: 07/14/19 14:59 Last Admin: 06/15/19 12:44 Dose: 7.5 mg Documented by: [id number] Admin: 06/15/19 08:01 Dose: 7.5 mg Documented by: [id number] Admin: 06/14/19 19:56 Dose: 7.5 mg Documented by: [id number] Admin: 06/14/19 16:25 Dose: 7.5 mg Documented by: [id number] Heparin Sodium (Porcine) (Heparin Sodium (Porcine)) 5,000 units SQ Q12 [facility] Stop: 07/14/19 20:59 Last Admin: 06/15/19 08:03 Dose: 5,000 units Documented by: [id number] Cosigned by: [id number] Admin: 06/14/19 20:00 Dose: 5,000 units Documented by: [id number] Cosigned by: [id number] Insulin Aspart (Novolog Flexpen) 0 units SC ACHS [facility] Stop: 07/14/19 16:29 Last Admin: 06/15/19 11:50 Dose: Not Given Documented by: [id number] Cosigned by: [id number] Admin: 06/15/19 08:02 Dose: Not Given Documented by: [id number] Cosigned by: [id number] Admin: 06/14/19 21:32 Dose: Not Given Documented by: [id number] Cosigned by: [id number] Admin: 06/14/19 18:06 Dose: Not Given Documented by: [id number] Cosigned by: [id number] Levalbuterol HCl (Xopenex 0.63 Mg/3 Ml Neb) 0.63 mg NEB Q6R [facility] Stop: 07/14/19 18:59 Last Admin: 06/15/19 13:21 Dose: 0.63 mg Documented by: [id number] Admin: 06/15/19 07:24 Dose: 0.63 mg Documented by: [id number] Admin: 06/15/19 02:21 Dose: 0.63 mg Documented by: [id number] Admin: 06/14/19 19:08 Dose: 0.63 mg Documented by: [id number] Levothyroxine Sodium (Synthroid) 112 mcg PO DAILY@0600 [facility] Stop: 07/15/19 05:59 Last Admin: 06/15/19 06:25 Dose: Not Given Documented by: [id number] Miscellaneous (Order Awaiting Action) 1 ea N/A QS [facility] Stop: 07/15/19 00:00 Last Admin: 06/15/19 08:02 Dose: Not Given Documented by: [id number] Admin: 06/14/19 23:32 Dose: Not Given Documented by: [id number] Pantoprazole Sodium (Protonix) 40 mg PO DAILY@0800 [facility] Stop: 07/15/19 07:59 Last Admin: 06/15/19 08:01 Dose: 40 mg Documented by: [id number] Venlafaxine HCl (Effexor) 37.5 mg PO QDD@1700 [facility] Stop: 07/14/19 16:59 Last Admin: 06/14/19 19:55 Dose: 37.5 mg Documented by: [id number] Venlafaxine HCl (Effexor) 75 mg PO BID@0800,1300 [facility] Stop: 07/14/19 15:14 Last Admin: 06/15/19 12:44 Dose: 75 mg Documented by: [id number] Admin: 06/15/19 08:02 Dose: 75 mg Documented by: [id number] Admin: 06/14/19 16:26 Dose: 75 mg Documented by: [id number] Coding Level of Care Code 42464 U Intl Hosp Care Lvl 3
[2019-06-15] MEDS: TOBRAMYCIN INH SCH (21:14)
[2019-06-15] MEDS: MIRTAZAPINE TAB 15 MG TAB PO SCH (23:34)
[2019-06-16] MEDS: LEVALBUTEROL HCL 0.63 MG/3 ML NEB NEB SCH ×4 (00:46→19:32)
[2019-06-16] MEDS: LEVOTHYROXINE SODIUM 112 MCG TABLET PO SCH (05:55)
[2019-06-16] MEDS: SODIUM CHLOR 7% 4 ML NEB NEB SCH ×2 (07:24→19:33)
[2019-06-16 07:44] LABS: Hematocrit (blood only) 38.9 % (37-47); Hemoglobin 11.9 g/dL (12.0-16.0); Mean Corpuscular Hemoglobin 33.7 pg (25-34); Mean Corpuscular Hgb Conc 30.6 g/dL (32-36); Mean Corpuscular Volume 110.2 fL (80-100); Mean Platelet Volume 9.7 fL (7.4-10.4); Platelet Count 280 K/uL (130-400); RDW Coefficient of Variation 14.6 % (11.5-14.5); RDW Standard Deviation 58.2 fL (36.4-46.3); Red Blood Count 3.53 M/uL (4.2-5.4)
[2019-06-16 08:17] LABS: Calcium 9.6 mg/dl (8.5-10.1); Creatinine Clr Calc Pharmacy 60.9 ml/min; Est GFR (Non-African American) 86.2
[2019-06-16] MEDS: VENLAFAXINE HCL 37.5 MG TAB PO SCH ×3 (08:38→17:52)
[2019-06-16] MEDS: predniSONE 2.5 MG TAB PO SCH (08:39)
[2019-06-16] MEDS: PANTOprazole 40 MG TAB PO SCH (08:40)
[2019-06-16] MEDS: ATENOLOL 25 MG TABLET PO SCH (08:40)
[2019-06-16] MEDS: HEPARIN SOD 5,000 UNIT/0.5 ML VIAL SQ SCH ×2 (08:41→20:51)
[2019-06-16] MEDS: INSULIN ASPART 100 UNITS/ML 3 ML PEN SC SCH ×4 (08:41→20:52)
--- NOTE | 2019-06-16 12:21 | Hospitalist Progress Note ---
Date of Service June 16, 2019 Assessment & Plan (1) Acute on chronic respiratory failure with hypoxia and hypercapnia: - Currently requiring 4L via NC during the day and BiPAP qhs. - Prescribed Trilogy qhs at [facility] but was non-compliant due to insomnia. - CXR on admission was negative. - Procalcitonin level 0.08; hold abx coverage, no evidence of infection. - Prednisone 2.5 mg daily per pulm. - Xopenex q6hr [facility] (recommend to convert to Xopenex at SNF due to tremors); Sodium chloride nebs BID. - Chest percussion therapy TID. - Pulmonology consulted. Breathing issues likely related to anxiety and noncompliance with Trilogy machine --> no evidence of acute exacerbation of bronchiectasis. - Consulted harshil, greatly appreciate input. Increased Buspar to 10 mg TID and added Remeron 7.5 mg qhs with improvement in anxiety/breathing. (2) Bronchiectasis: - Significant work-up and long, long treatment for bronchiectasis NOS. Moved from [place] recently to be with family. She reported both infections and colonization by Pseudomonas as well as prior infection and treatment for GEOFFREY. - Sputum culture negative (prelim) (3) Chest pain: - Trop negative x 3. Chest pain is now resolved. - Chest pain is likely related to coughing episodes vs. anxiety. - Continue home Atenolol. (4) GEOFFREY (mycobacterium avium-intracellulare): - Completed 19 months of treatment for infection during her time living in [place]. - Continue Tobramycin inhaler QOD 14 days on, 14 days off. - Droplet precautions. (5) Diabetes mellitus type 2 in nonobese: - A1C was 6.1 in Apr 2019. - SSI coverage in setting of steroids. - Metformin 500 mg daily at home. (6) Hypertension: - Continue Atenolol as prescribed. (7) Hypothyroidism: - Continue Levothyroxine as prescribed. - TSH most recently was 0.323. (8) Anxiety: - Has been an ongoing issue, likely leading to increased SOB. - Started Buspar 7.5 mg TID during last admission with some improvement; increased dose to 10 mg TID per psych. - Cannot tolerate high doses of Klonopin -- leads to increased lethargy; Klonopin 0.25 mg qhs prn. - Consulted psych, greatly appreciate input. Also added Remeron 7.5 mg qhs for insomnia. (9) Depression: - Continue Effexor as prescribed. Added Remeron 7.5 mg qhs. - Consulted psych as noted above. (10) Vasculitis: - Home Prednisone dose of 2.5 mg daily. - Holding home Azathioprine due to concern for acute infection, can resume at discharge. (11) Insomnia: - Has been an ongoing issue -- did not tolerate Trilogy at the [facility] due to insomnia. - Avoid meds such as Ambien & Benadryl due to advanced age. - Melatonin 3 mg qhs. - Trialed Seroquel 12.5 mg qhs, developed severe lethargy -- now discontinued. - Started Remeron 7.5 mg qhs; consider increasing to 15 mg if pt. is tolerating dose at the [facility]. (12) Macrocytic anemia: - Will order B12 and Folate levels in the morning. - Monitor CBC frequently. (13) DVT prophylaxis: - SCDs; Heparin q12hr. Dispo: Med/surg with tele; discharge to [facility] likely on Saturday06/17/19. Admission and Anticipated Discharge Date Admission Date: June 14, 2019 Subjective Pt. reports shortness of breath is close to baseline -- currently on 4L via NC during the day and tolerating BiPAP throughout the night. Her anxiety is also significantly improved. She slept throughout most of the night last evening after taking Remeron 7.5 mg. Will monitor over next 24 hours and likely discharge to [facility] tomorrow. Review of Systems Review of Systems: All systems reviewed & are unremarkable except as noted in HPI & below Constitutional: + fatigue and + weakness; no fever, no chills and no anorexia Respiratory: + dyspnea and + dyspnea on exertion; no cough and no wheezing Cardiovascular: no chest pain, no palpitations and no edema Gastrointestinal: no abdominal pain, no nausea and no constipation Genitourinary: no difficulty urinating Musculoskeletal: no back pain and no joint pain Psychiatric: + anxiety (Improved ) Physical Exam Physical Exam: General: Frail appearing elderly female; no anxiety noted. HEENT: NC/AT; PERRLA with EOMI; [place] conjunctiva, MMM. No erythema of posterior pharynx Neck: Supple and nontender Cardiac: RRR Lungs: 4L via NC; mild wheezing in some lung espino, otherwise clear throughout. Abdomen: Bowel normoactive X 4; Nontender to palpation Extremities: Warm. No edema present Neuro: No focal weakness Skin: No rash Results & Data ([facility]) Vital Signs (Past 12 Hours) Vital Signs Temp Pulse Pulse Resp BP Pulse Ox 06/16/19 07:50 36.5 C 106 H 18 153/70 H 96 06/16/19 07:47 88 06/16/19 07:25 89 20 94 06/16/19 04:45 37 C 86 18 147/68 H 87 L 06/16/19 03:50 135/65 06/16/19 03:18 74 23 89 L 06/16/19 00:46 93 H 26 H 89 L Laboratory Results 06/16/19 06/16/19 06/16/19 Range/Units 11:37 07:46 07:11 WBC (4.8-10.8) K/uL RBC (4.2-5.4) M/uL Hgb (12.0-16.0) g/dL Hct (37-47) % MCV (80-100) fL MCH (25-34) pg MCHC (32-36) g/dL RDW Std Deviation (36.4-46.3) fL RDW Coeff of Taylor (11.5-14.5) % Plt Count (130-400) K/uL MPV (7.4-10.4) fL Sodium 138 (136-145) mmol/L Potassium 4.0 (3.5-5.1) mmol/L Chloride 95 L (98-107) mmol/L Carbon Dioxide 39 H (21-32) mmol/L Anion Gap 4.0 (3-11) BUN 16 (7-18) mg/dl Creatinine 0.65 (0.6-1.2) mg/dl Est Cr Clr Drug Dosing 60.9 ml/min Est GFR ( Amer) 100.0 Est GFR (Non-Af Amer) 86.2 BUN/Creatinine Ratio 25.0 H (10-20) Glucose 84 (70-99) mg/dl POC Glucose 117 H 95 (70-99) mg/dl Calcium 9.6 (8.5-10.1) mg/dl 02/25/20 02/24/20 02/24/20 Range/Units 07:11 20:08 16:41 WBC 10.00 (4.8-10.8) K/uL RBC 3.53 L (4.2-5.4) M/uL Hgb 11.9 L (12.0-16.0) g/dL Hct 38.9 (37-47) % MCV 110.2 H (80-100) fL MCH 33.7 (25-34) pg MCHC 30.6 L (32-36) g/dL RDW Std Deviation 58.2 H (36.4-46.3) fL RDW Coeff of Taylor 14.6 H (11.5-14.5) % Plt Count 280 (130-400) K/uL MPV 9.7 (7.4-10.4) fL Sodium (136-145) mmol/L Potassium (3.5-5.1) mmol/L Chloride (98-107) mmol/L Carbon Dioxide (21-32) mmol/L Anion Gap (3-11) BUN (7-18) mg/dl Creatinine (0.6-1.2) mg/dl Est Cr Clr Drug Dosing ml/min Est GFR ( Amer) Est GFR (Non-Af Amer) BUN/Creatinine Ratio (10-20) Glucose (70-99) mg/dl POC Glucose 164 H 152 H (70-99) mg/dl Calcium (8.5-10.1) mg/dl PG Care Time/CCT Total # of Minutes Spent Total Time Spent with Patient: Total time spent is greater than 50% in coordination of care (as documented) at patient's floor/unit and/or counseling patient: Coding Level of Care Code 80359 Subseq Hosp Care Lvl 2 Diagnoses Acute on chronic respiratory failure with hypoxia and hypercapnia J96.21; J96.22 Bronchiectasis J47.9 Bronchiectasis type: uncomplicated Chest pain R07.9 GEOFFREY (mycobacterium avium-intracellulare) A31.0 Diabetes mellitus type 2 in nonobese E11.9 Hypertension I10 Hypothyroidism E03.9 Anxiety F41.9 Depression F32.9 Vasculitis I77.6 Insomnia G47.00 Macrocytic anemia D53.9 DVT prophylaxis Z29.9 (1) Bronchiectasis Bronchiectasis type: uncomplicated Qualified Code(s): J47.9 - Bronchiectasis, uncomplicated
--- NOTE | 2019-06-16 14:30 | Pulmonology Progress Note ---
Date of Service June 16, 2019 Assessment & Plan (1) Acute on chronic respiratory failure with hypoxia and hypercapnia: Continue home dose of prednisone, 2.5 mg. Dionicio 28 day cycles. No role for IV or PO abx currently as there is no evidence of exacerbation of bronchiectasis. Hypercapnia was likely related to poor BiPAP compliance which is a natural consequence of her underlying obstructive physiology. She does also have a severe metabolic alkalosis and further steroids will exacerbate this. She absolutely needs to adhere to BiPAP all times of sleep, including day naps. Recommend continue airway clearance with percussive therapy or flutter valve 4 times a day. I think she can be discharged to the nursing facility today or tomorrow. Pulm follow up with Dr. Barksdale. Pulm will sign off. Please call with questions. (2) Anxiety: (3) Insomnia: (4) Tremulousness: (5) Acute exacerbation of bronchiectasis: (6) Pseudomonas aeruginosa colonization: Subjective Patient feeling well today. Daughter at bedside. Able to tolerate full night with BiPAP in place. Anxious better controlled. Cough with minimal sputum. Occasional chest pain with coughing. No fevers or chills. Physical Exam Constitutional: + cachectic; no acute distress Neck: trachea midline, no thyromegaly Respiratory: no respiratory distress Auscultation: + crackles; no wheezes Cardiovascular: RRR, no murmur, no edema Gastrointestinal (Abdomen): normal bowel sounds, soft, nontender, no hepatosplenomegaly Musculoskeletal: Extremities: extremities normal to inspection Skin: no rashes, warm and dry Lymphatic: no cervical lymphadenopathy Results & Data ([facility]) Vital Signs (Past 12 Hours) Vital Signs Temp Pulse Pulse Resp BP Pulse Ox 06/16/19 13:44 81 20 95 06/16/19 12:15 97.5 F L 91 H 18 132/68 92 06/16/19 07:50 97.7 F 106 H 18 153/70 H 96 06/16/19 07:47 88 06/16/19 07:25 89 20 94 06/16/19 04:45 98.6 F 86 18 147/68 H 87 L 06/16/19 03:50 135/65 06/16/19 03:18 74 23 89 L PG Care Time/CCT Total # of Minutes Spent Total Time Spent with Patient: Total time spent is greater than 50% in coordination of care (as documented) at patient's floor/unit and/or counseling patient: Coding Level of Care Code 85635 Subseq Hosp Care Lvl 3 Diagnoses Acute on chronic respiratory failure with hypoxia and hypercapnia J96.21; J96.22 Anxiety F41.9 Insomnia G47.00 Tremulousness R25.1 Acute exacerbation of bronchiectasis J47.1 Pseudomonas aeruginosa colonization Z22.39
[2019-06-16] MEDS: MIRTAZAPINE TAB 15 MG TAB PO SCH (20:52)
[2019-06-17] MEDS: LEVALBUTEROL HCL 0.63 MG/3 ML NEB NEB SCH ×4 (00:51→18:56)
[2019-06-17] MEDS: LEVOTHYROXINE SODIUM 112 MCG TABLET PO SCH (05:06)
[2019-06-17 07:47] LABS: Hematocrit (blood only) 38.9 % (37-47); Hemoglobin 11.7 g/dL (12.0-16.0); Mean Corpuscular Hemoglobin 33.5 pg (25-34); Mean Corpuscular Hgb Conc 30.1 g/dL (32-36); Mean Corpuscular Volume 111.5 fL (80-100); Mean Platelet Volume 9.5 fL (7.4-10.4); Platelet Count 268 K/uL (130-400); RDW Coefficient of Variation 14.6 % (11.5-14.5); RDW Standard Deviation 59.6 fL (36.4-46.3); Red Blood Count 3.49 M/uL (4.2-5.4); White Blood Count 11.37 K/uL (4.8-10.8)
[2019-06-17] MEDS: SODIUM CHLOR 7% 4 ML NEB NEB SCH ×2 (08:01→19:08)
[2019-06-17] MEDS: VENLAFAXINE HCL 37.5 MG TAB PO SCH ×3 (08:02→16:56)
[2019-06-17] MEDS: predniSONE 2.5 MG TAB PO SCH (08:03)
[2019-06-17] MEDS: PANTOprazole 40 MG TAB PO SCH (08:03)
[2019-06-17] MEDS: ATENOLOL 25 MG TABLET PO SCH (08:04)
[2019-06-17] MEDS: TOBRAMYCIN INH SCH ×2 (08:06→20:58)
[2019-06-17] MEDS: HEPARIN SOD 5,000 UNIT/0.5 ML VIAL SQ SCH ×2 (08:06→20:56)
[2019-06-17] MEDS: INSULIN ASPART 100 UNITS/ML 3 ML PEN SC SCH ×4 (08:07→21:01)
[2019-06-17 08:15] LABS: BUN Creatinine Ratio 22.1 (10-20); Calcium 9.6 mg/dl (8.5-10.1); Est GFR (African American) 99.5; Est GFR (Non-African American) 85.8
[2019-06-17 09:03] LABS: Folate (Folic Acid) 12.13 ng/ml (>5.38)
--- NOTE | 2019-06-17 15:29 | Hospitalist Progress Note ---
Date of Service June 17, 2019 Assessment & Plan (1) Acute on chronic respiratory failure with hypoxia and hypercapnia: - Currently requiring 2-3L via NC during the day and BiPAP qhs. - Prescribed Trilogy qhs at The [facility] but was non-compliant due to insomnia. Has been tolerating BiPAP mask as inpatient. - CXR on admission was negative. - Procalcitonin level 0.08; holding abx coverage, no evidence of infection. - Prednisone 2.5 mg daily per pulm. - Xopenex q6hr ATC (recommend to convert to Xopenex at SNF due to tremors); Sodium chloride nebs BID. - Chest percussion therapy TID. - Pulmonology consulted. Breathing issues likely related to anxiety and noncompliance with Trilogy machine --> no evidence of acute exacerbation of bronchiectasis. - Consulted pysch --> increased Buspar to 10 mg TID and added Remeron 7.5 mg qhs with improvement in anxiety/breathing. She did develop generalized fatigue -- explained that this can occur after starting med but she will likely adjust to medication over next 1-2 weeks. (2) Bronchiectasis: - Significant work-up and long, long treatment for bronchiectasis NOS. Moved from [place] recently to be with family. She reported both infections and colonization by Pseudomonas as well as prior infection and treatment for GEOFFREY. - Sputum culture +probable pseudomonas species, chronic colonization. Is on Tobra nebs q14 days (3) Chest pain: - Trop negative x 3. Chest pain resolved. - Chest pain likely related to coughing episodes vs. anxiety. - Continue home Atenolol. (4) GEOFFREY (mycobacterium avium-intracellulare): - Completed 19 months of treatment for infection during her time living in [place]. - Continue Tobramycin inhaler QOD 14 days on, 14 days off. - Droplet precautions. (5) Diabetes mellitus type 2 in nonobese: - A1C was 6.1 in Apr 2019. - SSI coverage in setting of steroids. - Metformin 500 mg daily at home. (6) Hypertension: - Continue Atenolol as prescribed. (7) Hypothyroidism: - Continue Levothyroxine as prescribed. - TSH most recently was 0.323. (8) Anxiety: - Has been an ongoing issue, likely leading to increased SOB. - Started Buspar 7.5 mg TID during last admission with some improvement; increased dose to 10 mg TID per psych. - Cannot tolerate high doses of Klonopin -- leads to increased lethargy. - Consulted psych, greatly appreciate input. Also added Remeron 7.5 mg qhs for insomnia. Consider titrating dose to 15 mg at SNF if tolerating. (9) Depression: - Continue Effexor as prescribed. Added Remeron 7.5 mg qhs. - Consulted psych as noted above. (10) Vasculitis: - Home Prednisone dose of 2.5 mg daily. - Holding home Azathioprine, can resume at discharge. (11) Insomnia: - Has been an ongoing issue -- did not tolerate Trilogy at the [facility] due to insomnia. - Avoid meds such as Ambien & Benadryl due to advanced age. - Trialed Seroquel 12.5 mg qhs, developed severe lethargy -- now discontinued. - Started Remeron 7.5 mg qhs; consider increasing to 15 mg. (12) Macrocytic anemia: - B12 level 1562; Folate level 12.13. - Consider outpatient work up to determine etiology of anemia. (13) DVT prophylaxis: - SCDs; Heparin q12hr. Dispo: Med/surg with tele; DISCHARGE TO THE [facility] ON Saturday06/18/19. Admission and Anticipated Discharge Date Admission Date: June 14, 2019 Supervising Physician Co-Signing Physician Notes ASHLEE Supervision Note: I personally saw and examined the patient. I verified all avalos points and agree with ASHLEE Dean with the following exceptions and/or additions: Patient very anxious about leaving today. Reports she feels hung over from taking Remeron last night. She is very worried that the nurses do not know how to work her ventilator at the nursing facility. Also her is having colonoscopy today and he will not be there with her when she returns. She is refusing discharge. Otherwise stable except reports increased work of breathing today although appears comfortable. Vitals reviewed Gen: AAOx3, NAD, thin, anxious HEENT: Anicteric sclerae, EOMI CV: RRR no mgr nl S1S2 Pulm: Diffuse crackles and rhonchi, no wheezing, no distress, nasal cannula in place Abd: +BS soft NT ND no masses or hernias Ext: No edema, 2+ DP pulses Skin: No rashes, warm/dry Neuro: Full strength throughout, anxious mood and affect 74-year-old female here with bronchiectasis and history otherwise as above, hypercapnic and hypoxic acute on chronic respiratory failure Improving, plan outlined as above Plan for discharge tomorrow Discussed with her primary care physician the nursing facility and they are more than accommodating for the issues the patient feels are happening with her ventilator-she has been counseled multiple times and nurses do know how to work the machine as per the primary care physician. Subjective Pt. c/o being more tired than usual after starting Remeron -- explained that it can take a few weeks to adjust to medication. She is sleeping well at night, tolerating BiPAP machine as inpt. The patient and her daughter are concerned that the staff at the [facility] do not understand Trilogy machine, have had issues with applying mask at night/using machine. Discussed with physician at facility, this issue has been investigated and rep for machine has been out to their facility on a few occasions. She has an increased cough today -- more sputum production. SOB is at baseline. Plan for discharge to the [facility] tomorrow. Review of Systems Review of Systems: All systems reviewed & are unremarkable except as noted in HPI & below Constitutional: + fatigue and + weakness; no fever, no chills and no anorexia Respiratory: + cough, + dyspnea, + dyspnea on exertion, + sputum production and + wheezing Cardiovascular: no chest pain, no palpitations and no edema Gastrointestinal: no abdominal pain, no nausea and no constipation Genitourinary: no difficulty urinating Musculoskeletal: no back pain and no joint pain Integumentary: no non-healing lesions Physical Exam Physical Exam: General: Frail appearing elderly female HEENT: NC/AT; PERRLA with EOMI; [place] conjunctiva, MMM. No erythema of posterior pharynx Neck: Supple and nontender Cardiac: RRR Lungs: 3-4L via NC; diminished throughout. Abdomen: Bowel normoactive X 4; Nontender to palpation Extremities: Warm. No edema present Neuro: No focal weakness Skin: No rash Results & Data ([facility]) Vital Signs (Past 12 Hours) Vital Signs Temp Pulse Pulse Resp BP BP Pulse Ox 06/17/19 15:01 91 H 20 91 06/17/19 13:12 96 H 22 98 06/17/19 08:02 106 H 16 93 06/17/19 07:27 36.6 C 105 H 20 128/57 L 94 06/17/19 07:11 90 06/17/19 04:26 36.5 C 104 H 20 132/68 90 Laboratory Results 06/17/19 06/17/19 06/17/19 Range/Units 11:44 07:40 07:31 WBC (4.8-10.8) K/uL RBC (4.2-5.4) M/uL Hgb (12.0-16.0) g/dL Hct (37-47) % MCV (80-100) fL MCH (25-34) pg MCHC (32-36) g/dL RDW Std Deviation (36.4-46.3) fL RDW Coeff of Taylor (11.5-14.5) % Plt Count (130-400) K/uL MPV (7.4-10.4) fL Sodium (136-145) mmol/L Potassium (3.5-5.1) mmol/L Chloride (98-107) mmol/L Carbon Dioxide (21-32) mmol/L Anion Gap (3-11) BUN (7-18) mg/dl Creatinine (0.6-1.2) mg/dl Est Cr Clr Drug Dosing ml/min Est GFR ( Amer) Est GFR (Non-Af Amer) BUN/Creatinine Ratio (10-20) Glucose (70-99) mg/dl POC Glucose 131 H 110 H (70-99) mg/dl Calcium (8.5-10.1) mg/dl Vitamin B12 1562 H (211-911) pg/ml Folate 12.13 (>5.38) ng/ml 06/17/19 06/17/19 06/16/19 Range/Units 07:31 07:31 20:23 WBC 11.37 H (4.8-10.8) K/uL RBC 3.49 L (4.2-5.4) M/uL Hgb 11.7 L (12.0-16.0) g/dL Hct 38.9 (37-47) % MCV 111.5 H (80-100) fL MCH 33.5 (25-34) pg MCHC 30.1 L (32-36) g/dL RDW Std Deviation 59.6 H (36.4-46.3) fL RDW Coeff of Taylor 14.6 H (11.5-14.5) % Plt Count 268 (130-400) K/uL MPV 9.5 (7.4-10.4) fL Sodium 137 (136-145) mmol/L Potassium 4.0 (3.5-5.1) mmol/L Chloride 95 L (98-107) mmol/L Carbon Dioxide 40 H (21-32) mmol/L Anion Gap 2.0 L (3-11) BUN 15 (7-18) mg/dl Creatinine 0.66 (0.6-1.2) mg/dl Est Cr Clr Drug Dosing 60.0 ml/min Est GFR ( Amer) 99.5 Est GFR (Non-Af Amer) 85.8 BUN/Creatinine Ratio 22.1 H (10-20) Glucose 100 H (70-99) mg/dl POC Glucose 235 H (70-99) mg/dl Calcium 9.6 (8.5-10.1) mg/dl Vitamin B12 (211-911) pg/ml Folate (>5.38) ng/ml 06/16/19 Range/Units 16:41 WBC (4.8-10.8) K/uL RBC (4.2-5.4) M/uL Hgb (12.0-16.0) g/dL Hct (37-47) % MCV (80-100) fL MCH (25-34) pg MCHC (32-36) g/dL RDW Std Deviation (36.4-46.3) fL RDW Coeff of Taylor (11.5-14.5) % Plt Count (130-400) K/uL MPV (7.4-10.4) fL Sodium (136-145) mmol/L Potassium (3.5-5.1) mmol/L Chloride (98-107) mmol/L Carbon Dioxide (21-32) mmol/L Anion Gap (3-11) BUN (7-18) mg/dl Creatinine (0.6-1.2) mg/dl Est Cr Clr Drug Dosing ml/min Est GFR ( Amer) Est GFR (Non-Af Amer) BUN/Creatinine Ratio (10-20) Glucose (70-99) mg/dl POC Glucose 116 H (70-99) mg/dl Calcium (8.5-10.1) mg/dl Vitamin B12 (211-911) pg/ml Folate (>5.38) ng/ml PG Care Time/CCT Total # of Minutes Spent Total Time Spent with Patient: Total time spent is greater than 50% in coordination of care (as documented) at patient's floor/unit and/or counseling patient: Coding Level of Care Code 72205 Subseq Hosp Care Lvl 3 Diagnoses Acute on chronic respiratory failure with hypoxia and hypercapnia J96.21; J96.22 Bronchiectasis J47.9 Bronchiectasis type: uncomplicated Chest pain R07.9 GEOFFREY (mycobacterium avium-intracellulare) A31.0 Diabetes mellitus type 2 in nonobese E11.9 Hypertension I10 Hypothyroidism E03.9 Anxiety F41.9 Depression F32.9 Vasculitis I77.6 Insomnia G47.00 Macrocytic anemia D53.9 DVT prophylaxis Z29.9 (1) Bronchiectasis Bronchiectasis type: uncomplicated Qualified Code(s): J47.9 - Bronchiectasis, uncomplicated
[2019-06-17] MEDS: MIRTAZAPINE TAB 15 MG TAB PO SCH (20:59)
[2019-06-18] MEDS: LEVALBUTEROL HCL 0.63 MG/3 ML NEB NEB SCH ×3 (01:01→13:14)
[2019-06-18] MEDS: LEVOTHYROXINE SODIUM 112 MCG TABLET PO SCH (05:36)
[2019-06-18] MEDS: SODIUM CHLOR 7% 4 ML NEB NEB SCH (07:07)
[2019-06-18 07:36] LABS: BUN Creatinine Ratio 18.8 (10-20); Creatinine Clr Calc Pharmacy 56.6 ml/min; Est GFR (African American) 97.5; Est GFR (Non-African American) 84.2; Potassium 3.8 mmol/L (3.5-5.1)
[2019-06-18 07:37] LABS: Hemoglobin 11.4 g/dL (12.0-16.0); Mean Corpuscular Hemoglobin 33.5 pg (25-34); Mean Corpuscular Volume 111.8 fL (80-100); Mean Platelet Volume 9.7 fL (7.4-10.4); Platelet Count 267 K/uL (130-400); RDW Coefficient of Variation 14.7 % (11.5-14.5); White Blood Count 10.89 K/uL (4.8-10.8)
[2019-06-18] MEDS: INSULIN ASPART 100 UNITS/ML 3 ML PEN SC SCH ×2 (08:51→12:22)
[2019-06-18] MEDS: ATENOLOL 25 MG TABLET PO SCH (08:51)
[2019-06-18] MEDS: VENLAFAXINE HCL 37.5 MG TAB PO SCH ×2 (08:52→12:23)
[2019-06-18] MEDS: predniSONE 2.5 MG TAB PO SCH (08:52)
[2019-06-18] MEDS: PANTOprazole 40 MG TAB PO SCH (08:52)
[2019-06-18] MEDS: HEPARIN SOD 5,000 UNIT/0.5 ML VIAL SQ SCH (08:53)
--- NOTE | 2019-06-18 11:06 | Discharge Summary ---
Date of Service June 18, 2019 Admission HPI Per Admitting Provider Ms. Hooks is a 74 year old female with past medical history of chronic respiratory failure, bronchiectasis, anxiety/depression, vasculitis, type II DM, HTN, hypothyroidism who presented with increased shortness of breath. She was recently admitted from 05/15-05/27/19 for similar respiratory issues. Pt. was discharged with instructions to use the Trilogy machine qhs along with 2-3L via NC during the day. Pt. was doing well following discharge but developed increase SOB over the last few days. She has not been able to tolerate using Trilogy in the evening due to insomnia but has been wearing oxygen throughout the day. She had hallucinations last evening along with severe insomnia. Has been using Buspar for anxiety related to SOB but d/c'ed Klonopin as it led to increased lethargy. C/o increased productive cough with green-yellow sputum. Has chest pain, located across most of chest, with SOB episodes but denies radiation of pain to jaw or neck, nausea/vomiting. Is having formed BMs; denies abd pain, dysuria, hematuria, urinary frequency, LE edema, rhinorrhea, sinus congestion or headache, pharyngitis, fever/chills. ER course: She received Solu-medrol 60 mg IV x 1 dose and Duoneb treatment. Will be admitted for pulmonology consult and further evaluation of acute hypoxia/SOB. Principal Diagnosis Acute on chronic respiratory failure with hypercapnia and hypoxia Discharge Exam Constitutional + thin; no acute distress Eyes + anicteric sclerae Neck trachea midline, no thyromegaly Respiratory normal respiratory effort; not tachypneic Auscultation: + crackles (diffusely) and + rhonchi (diffusely); no wheezes Cardiovascular RRR, no murmur, no edema Chest (Breasts) Chest: normal inspection of chest Gastrointestinal (Abdomen) normal bowel sounds, soft, nontender, no hepatosplenomegaly Musculoskeletal Extremities: extremities normal to inspection; no cyanosis and no clubbing Skin no rashes, warm and dry Neurologic moves all extremities and awake; no focal motor deficits Psychiatric Orientation: alert and oriented x 3 Affect: + anxious affect Lymphatic no lymphedema Discharge Data Allergies Allergy/AdvReac Type Severity Reaction Status Date / Time levofloxacin Allergy Unknown Unverified 06/14/19 08:12 Sulfa (Sulfonamide Allergy Unknown Unverified 06/14/19 08:12 Antibiotics) Consultations 06/14/19 09:13 ED Decision to Admit Stat 06/14/19 13:18 Consult Pulmonology Routine 06/14/19 14:43 Consult Case Management - Discharge Planning Routine 06/15/19 08:51 Consult Psychiatry Routine Ordered Studies 06/15/19 01:15 CT head/brain wo con Urgent CXR Hospital Course (1) Acute on chronic respiratory failure with hypoxia and hypercapnia: - Currently requiring 2-3L via NC during the day and BiPAP qhs with O2 - Prescribed Trilogy qhs at [facility] but was non-compliant due to insomnia. Has been tolerating BiPAP mask as inpatient and now tolerating well with addition of Remeron for sleep and anxiety - CXR on admission was negative for PNA. - Procalcitonin level 0.08; holding abx coverage, no evidence of infection. - Changed Prednisone to 2.5 mg daily per pulm. - Xopenex q6hr ATC (recommend to convert to Xopenex at [facility] due to tremors from ipratropium); continue Sodium chloride nebs BID. - Chest percussion therapy TID. - Pulmonology consulted. Breathing issues likely related to anxiety and noncompliance with Trilogy machine --> no evidence of acute exacerbation of bronchiectasis. - Consulted pymichael --> increased Buspar to 10 mg TID and added Remeron 7.5 mg qhs with improvement in anxiety/breathing. She did develop generalized fatigue -- explained that this can occur after starting med but she will likely adjust to medication over next 1-2 weeks. Improved by day of discharge (2) Bronchiectasis: - Significant work-up and long, long treatment for bronchiectasis NOS. Moved from [place] recently to be with family. She reported both infections and colonization by Pseudomonas as well as prior infection and treatment for GEOFFREY. - Sputum culture +probable pseudomonas species, chronic colonization. Is on Tobra nebs q14 days (3) Chest pain: - Trop negative x 3. Chest pain resolved. - Chest pain likely related to coughing episodes vs. anxiety. - Continue home Atenolol. (4) GEOFFREY (mycobacterium avium-intracellulare): - Completed 19 months of treatment for infection during her time living in [place]. - Continue Tobramycin inhaler QOD 14 days on, 14 days off. - Droplet precautions. (5) Diabetes mellitus type 2 in nonobese: - A1C was 6.1 in Apr 2019. - SSI coverage in setting of steroids. - Metformin 500 mg daily at home. (6) Hypertension: - Continue Atenolol as prescribed. (7) Hypothyroidism: - Continue Levothyroxine as prescribed. - TSH most recently was 0.323. (8) Anxiety: - Has been an ongoing issue, likely leading to increased SOB. - Started Buspar 7.5 mg TID during last admission with some improvement; increased dose to 10 mg TID per psych. - Cannot tolerate high doses of Klonopin -- leads to increased lethargy. - Consulted psych, greatly appreciate input. Also added Remeron 7.5 mg qhs for insomnia. Consider titrating dose to 15 mg at SNF if tolerating. (9) Depression: - Continue Effexor as prescribed. Added Remeron 7.5 mg qhs. - Consulted psych as noted above. (10) Vasculitis: - Home Prednisone dose of 2.5 mg daily. - Holding home Azathioprine, can resume at discharge. (11) Insomnia: - Has been an ongoing issue -- did not tolerate Trilogy at the [facility] due to insomnia. - Avoid meds such as Ambien & Benadryl due to advanced age. - Trialed Seroquel 12.5 mg qhs, developed severe lethargy -- now discontinued. - Started Remeron 7.5 mg qhs; consider increasing to 15 mg. -dcd clonazepam for excessive sedation (12) Macrocytic anemia: - B12 level 1562; Folate level 12.13. - Consider outpatient work up to determine etiology of anemia but could be from azathioprine use. (13) DVT prophylaxis: - SCDs; Heparin q12hr. Dispo: [facility]--DISCHARGE TO THE [facility] ON Saturday06/18/19. Total Time Total Time Spent Total Time Spent (In Minutes): 35 min Total Time Includes: Examination of the Patient, Discharge Planning and Medication Reconciliation Discharge Plan Discharge Items Patient Disposition: Transfer Half-Way Fac Reason For Visit: respiratory failure Discharge Diagnosis: Acute on chronic respiratory failure with hypercapnia and hypoxia Condition on Discharge: Fair Activity: Resume your previous activity Non-emergency contact: Primary Care Provider and Vacation Guide Call non-emergency contact if: you have any medication questions, your symptoms worsen and your temperature is above 101 Follow-up/Referrals: Anibal Barksdale MD [Physician] - (Please follow-up with Dr. Barksdale or Shannon Duarte at Pulmonology within 5-7 days) Ortega Zavala [Primary Care Provider] - Diet: Carb Consistent or DM2 and Heart Healthy Addtl Attending Provider Instructions: Continue Remeron 7.5mg by mouth at bedtime for anxiety and sleep. Addtl Supervisor Rework Provider Instructions: Trilogy ventilator machine MUST BE USED AT ALL TIMES OF SLEEP INCLUDING NAPS IN THE DAYTIME. LACK OF COMPLIANCE CAN LEAD TO HYPERCAPNIC RESPIRATORY FAILURE AND READMISSION TO THE HOSPITAL. Continue home dose of prednisone, 2.5 mg. Dionicio 28 day cycles. No role for IV or PO abx currently as there is no evidence of exacerbation of bronchiectasis. Hypercapnia was likely related to poor Trilogy machine compliance which is a natural consequence of her underlying obstructive physiology. She absolutely needs to adhere to Trilogy all times of sleep, including day naps. Recommend continue airway clearance with percussive therapy or flutter valve 4 times a day. Pending Studies at Discharge: Yes (Final sputum culture-probable Pseudomonas Species) Stand-Alone Forms: My [facility] Skilled Items Patient informed of condition?: Yes DNR: Yes Discharge Level of Care: Skilled Communicable Disease: No Discharge Prognosis: Improving Lines: None Urinary Catheter: No Medications and DC Order Prescriptions: New buspirone 10 mg tablet 10 mg PO TID Qty: 90 RF: 0 mirtazapine 15 mg Tablet 7.5 mg PO HS Qty: 15 RF: 0 sodium chloride 7 % Solution For Nebulization 4 ml NEB BIDR Qty: 240 RF: 0 levalbuterol HCl 0.63 mg/3 mL Solution For Nebulization 0.63 mg NEB Q6R Qty: 90 RF: 0 Continued metformin 500 mg Tablet 500 mg PO QDD@1700 RF: 0 venlafaxine 75 mg Tablet 75 mg PO BID@0800,1300 RF: 0 ondansetron HCl [Zofran] 4 mg Tablet 4 mg PO Q4H PRN (Reason: Nausea) RF: 0 atenolol 25 mg Tablet 25 mg PO DAILY@0800 RF: 0 azathioprine 50 mg Tablet 50 mg PO DAILY@0800 RF: 0 venlafaxine 37.5 mg Tablet 37.5 mg PO QDD@1700 RF: 0 esomeprazole magnesium [Nexium] 40 mg Capsule,Delayed Release(Dr/Ec) 40 mg PO DAILY@0800 RF: 0 levothyroxine 112 mcg Tablet 112 mcg PO DAILY@0600 RF: 0 Dionicio Podhaler 28 mg Capsule 4 cap INHALATION UD RF: 0 Magic Mouth Wash 10 ml PO QID@08,13,17,21 RF: 0 Changed prednisone 5 mg Tablet 2.5 mg PO DAILY@0800 Qty: 0 RF: 0 Discontinued ipratropium-albuterol 0.5 mg-3 mg(2.5 mg base)/3 mL Solution For Nebulization 3 ml INHALATION QID@08,11,16,20 RF: 0 melatonin 3 mg Tablet 3 mg PO HS@2000 RF: 0 buspirone 7.5 mg Tablet 7.5 mg PO TID@0800,1300,2000 RF: 0 clonazepam 0.25 mg Tablet,Disintegrating 0.25 mg PO HS PRN (Reason: Insomnia) RF: 0 Discharge Orders: Discharge Order (Routine); Ordered 06/18/19 Ordered By: Nhi Jean Baptiste Admission Data Admit Date/Time: 06/14/19 10:36 Attending Provider: Nhi Jean Baptiste Admit Provider: Bobby Bell Primary Care Provider: Ortega Zavala Other Providers: Maximilian Dennis ; Anibal Barksdale ; Niru Osborn Other Interventions: PSY Interdisciplinary Discharge Planning Last Done: 06/16/19 15:30 Coding Level of Care Code D/C Day Management >30 mins Diagnoses Acute on chronic respiratory failure with hypoxia and hypercapnia J96.21; J96. 22 Bronchiectasis J47.9 Bronchiectasis type: uncomplicated Chest pain R07.9 GEOFFREY (mycobacterium avium-intracellulare) A31.0 Diabetes mellitus type 2 in nonobese E11.9 Hypertension I10 Hypothyroidism E03.9 Anxiety F41.9 Depression F32.9 Vasculitis I77.6 Insomnia G47.00 Macrocytic anemia D53.9 DVT prophylaxis Z29.9
[2019-07-03] MEDS ORDERED: TOBRAMYCIN INH SCH (09:00)
== END 2019-06-18 14:03 | DRG 189 ==
LOC: ED 07:37 → SUATTDRO 10:36 → 2W 10:36